=== PATIENT | male | born 1965 ===

== ENCOUNTER 2024-10-25 09:10 | Outpatient (REF) | payer MEDICAID, SELFPAY ==
--- OUTSIDE RECORDS SUMMARY | 2024-10-25 09:54 | XMS_ITS | Encounter Summary ---
Author Organization [employer] Address [address] [place] [address] Care Team Providers Care Press Tender Smoke Signal Name Role Phone Name, Mickey ANGUIANO Primary Care Provider [phone] Encounter Details Date Type Department Care Team (Latest Contact Info) Description 10/24/2024 Travel Social History Tobacco Use Types Packs/Day Years Used Date Smoking Tobacco: Never Smokeless Tobacco: Never Alcohol Use Standard Drinks/Week Comments Defer 0 (1 standard drink = 0.6 oz pur e alcohol) occionally Depression Answer Date Recorded Patient Health Questionnaire-9 Score 24 10/24/2024 Patient Health Questionnaire-9 Score 24 10/24/2024 Last PHQ-9: Questionnaire Data Not on file 0 10/24/2024 Housing Stability Answer Date Recorded What is your housing situation today? I am not s ure 10/24/[address] you li ve. Do you have problems with any of the following? None of the above 10/24/2024 Food Insecurity Answer Date Recorded Within the past 12 months, y ou worried that your food would run out before you got money to buy more: Sometimes True 2024 Within the past 12 months,th e food you bought just didn't last and you didn't have enough money to get more: Sometimes True 10/24/2024 Transportation Answer Date Recorded In the past 12 months, has l ack of transportation kept you from medical appts, meetings, work or from getting things needed for daily living? No 10/24/2024 Utilities Answer Date Recorded In the past 12 months, has t he electric, gas, oil or water company threatened to shut off services in your home? Already shut Off 10/24/2024 Depression Answer Date Recorded Patient Health Questionnaire-2 Score 6 10/24/2024 Internet Access Answer Date Recorded Internet Access Q1 No 10/24/2024 Internet Access Q2 I cannot afford it 10/24/2024 Sex and Gender Information Value Date Recorded Sex Assigned at Male 10/24/2024 8:17 AM EDT Legal Sex Male 10:59 AM EDT Gender Identity Male 10/24/2024 8:17 AM EDT Sexual Orientation Straight 10/24/2024 8: 17 AM EDT documented as of this encounter Plan of Treatment Upcoming Encounters Date Type Department Care Team (Late st Contact Info) Description 12/21/2024 11:30 AM EDT Office Visit [facility] [address] [place] [address] Name, MD Mickey [address] [place] [address] documented as of this encounter Visit Diagnoses Not on filedocumented in this encounter Additional Health Concerns Assessment Noted Time PHQ-9 Depression Total Score: 24 025 9:51 AM EDT documented as of this encounter Care Teams Press Tender Smoke Signal Relationship Specialty Start Date End Date Name, MD Mickey [address] [place] [id number] PCP - General Internal Medicine 10/24/24 documented as of this encounter
--- OUTSIDE RECORDS SUMMARY | 2024-10-25 09:54 | XMS_ITS | Clinical Summary ---
Author Organization [employer] [facility] Address [address] [facility] 7[address] [place] [address] Care Team Providers Care Type Mapper Name Role Phone NameMickey MD Primary Care Provider [phone] Allergies No known active allergies Active Problems Problem Noted Date Diagnosed Date Gynecomastia 10/24/2024 Overview (10/24/2024): Check testosterone levels, mammogram, referral to breast surgeon Encounters Date Type Department Care Team Description 10/24/2024 9:00 AM EDT Office Visit [facility] [address] [place] [address] Mickey Coyle MD Gynecomastia (Primary Dx); History of hepatitis C; Low libido; Blurred vision; Depression, unspecified depression type; Screening for cholesterol level; History of colonoscopy; Encounter for immunization; History of heroin abuse ([facility]) 10/24/2024 Travel 10/17/2024 Population Health Risk Score [facility] () Department [address] [facility] [address] [place] [id number] Provider, Population Health Generic 10/16/2024 Patient Outreach [facility] [address] [place] [address] Mickey Coyle MD Pre-visit Planning (SDOH unable to reach, Number disconnected) from Last 3 Months Immunizations Name Administration Dates Next Due Pneumococcal Conjugate PCV 20 10/24/2024 Tdap 10/24/2024 Social History Tobacco Use Types Packs/Day Years Used Date Smoking Tobacco: Never Smokeless Tobacco: Never Tobacco Cessation:Counseling Given: Not Answered Alcohol Use Standard Drinks/Week Comments Defer 0 [...] Orientation Straight 10/24/2024 8: 17 AM EDT Last Filed Vital Signs Vital Sign Reading Time Taken Comments Blood Pressure 123/78 10/24/2024 9:03 AM EDT Pulse 78 10/24/2024 9:03 AM EDT Temperature 36.4 ??C (97.5 ??F) 10/24/2024 9:03 AM ED T Respiratory Rate 18 10/24/2024 9:03 AM EDT Oxygen Saturation 98% 10/24/2024 9:03 AM EDT Inhaled Oxygen Concentration - - Weight 71.2 kg (157 lb) 10/24/2024 9:03 AM EDT Height 180.3 cm (5' 11 ) 10/24/2024 9:03 AM EDT Body Mass Index 21.9 10/24/2024 9:03 AM EDT Plan of Treatment Upcoming Encounters Date Type Department Care Team ([facility] st Contact Info) Description 12/21/2024 11:30 AM EDT Office Visit [facility] [address] [facility] [place] [address] Name, MD Mickey [address] [facility] [address] Health Maintenance Due Date Last Done Comments CT Colonography 1967 Colonoscopy 1967 Colorectal Cancer Screening 1967 FIT DNA/Cologuard 1967 FIT 1967 FOBT 1967 HIV Screening 1967 Lipid Panel 1967 Sigmoidoscopy 1967 Hepatitis A Vaccines (1 of 2 - Risk 2-dose series) 1986 Hepatitis B Vaccines (1 of 3 - 19+ 3-dose series) 1986 Zoster Vaccines (1 of 2) 2017 COVID-19 Vaccine ( - 2023-2 5 season) 2024 Influenza Vaccine (#1) 2024 Depression Monitoring 04/25/2025 10/24/2024 , 10/24/2024 Alcohol/Substance Use Screening 10/24/2025 10/24/2024 Depression Screening 10/24/2025 10/24/2024, 10/24/2024 SDOH Screening 10/24/2025 10/24/2024 Tobacco Screening 10/24/2025 10/24/2024 DTaP/Tdap/Td Vaccines (2 - T d or Tdap) 10/24/2034 10/24/2024 RSV Patients and Patients Aged 60 years or older (1 - 1-dose 75+ series) 2042 Pneumococcal Vaccine: 50+ Years Completed 10/24/2024 HIB Vaccines Aged Out No longer eligi ble based on patient's age to complete this topic HPV Vaccines Aged Out No longer eligi ble based on patient's age to complete this topic IPV Vaccines Aged Out No longer eligi ble based on patient's age to complete this topic Meningococcal Vaccine Aged Out No marie sarah eligible based on patient's age to complete this topic RSV under 20 months Aged Out No longe r eligible based on patient's age to complete this topic Rotavirus Vaccines Aged Out No longer eligible based on patient's age to complete this topic [facility] Care Teams Type Mapper Relationship Specialty Start Date End Date Name, MD Mickey [address] [place] [address] PCP - General Internal Medicine 10/24/24
--- OUTSIDE RECORDS SUMMARY | 2024-10-25 09:54 | XMS_ITS | Encounter Summary ---
Author Organization [employer] Address [address] [facility] 7t [place] [address] Care Team Providers Care Chisel Trimmer Name Role Phone Mickey Coyle MD Primary Care Provider [phone] Reason for Referral * Consultation (Routine) - Authorized Specialty Diagnoses / Procedures Referred By Kaleigh pittman Referred To Contact Diagnoses Gynecomastia Mickey Coyle MD [address] [place] [address] Phone: tel: fax: Amaury Porter MD [address] [place] [address] [address] [place] [address] Phone: tel: fax: Referral ID Status Reason Start Date Expiration Date Visits Requested Visits Authorized [id number] Authorized Specialty Services Required 10/24/2024 10/24/2025 12 12 * Imaging (Routine) - Authorized Specialty Diagnoses / Procedures Referred By Kaleigh pittman Referred To Contact Radiology Diagnoses Gynecomastia Procedures BI Mammogram Diagnostic Tomosynthesis Bilateral Mickey Coyle MD [address] [place] [address] Phone: tel: fax: [facility] [address] [place] [address] Phone: tel: fax: Referral ID Status Reason Start Date Expiration Date V isits Requested Visits Authorized [id number] Authorized 10/24/2024 10/24/2025 1 1 * Consultation (Routine) - Authorized Specialty Diagnoses / Procedures Referred By Kaleigh pittman Referred To Contact Behavioral Health Diagnoses Depression, unspecified depression type Mickey Coyle MD [address] [place] [address] Phone: tel: fax: Referral ID Status Reason Start Date Expiration Date Visits Requested Visits Authorized [id number] Authorized Specialty Services Required 10/24/2024 10/24/2025 1 1 * Consultation (Routine) - Authorized Specialty Diagnoses / Procedures Referred By Contac t Referred To Contact Optometry Diagnoses Blurred vision Mickey Coyle MD [address] [place] [address] Phone: tel: fax: [facility] OPTOMETRY [address] [place] [address] Phone: tel: fax: Referral ID Status Reason Start Date Expiration Date Visits Requested Visits Authorized [id number] Authorized Consult and Treat 10/24/2024 10/24/2025 1 1 Reason for Visit * Reason Comments initial visit Encounter Details Date Type Department Care Team (Late st Contact Info) Description 10/24/2024 9:00 AM EDT Office Visit [facility] [address] [place] [address] Mickey Coyle MD [address] [place] [phone] Gynecomastia (Primary Dx); History of hepatitis C; Low libido; Blurred vision; Depression, unspecified depression type; Screening for cholesterol level; History of colonoscopy; Encounter for immunization; History of heroin abuse (CMS/HCC) Social History Tobacco Use Types Packs/Day Years [...] AM EDT documented as of this encounter Last Filed Vital Signs Vital Sign Reading [...] Mass Index 21.9 10/24/2024 9:03 AM EDT documented in this encounter Progress Notes * Mickey Coyle, - 10/24/2024 9:00 AM EDT Subjective Patient ID: Odilon Wilde is a 59 y.o. male who presents for initial visit. Patient comes today for the first time to see me. The patient was recently released from retirement. He was incarcerated for about 25 years. The patient has a history of heroin use in the past. He has not used illicit drugs in about 10 years. He is not on Suboxone or methadone but was treated with methadone in the past. He has a personal history of depression. He admits to depression and anhedonia. He is not suicidal. He would like to have a counselor but would like to avoid using any antidepressants. He has a personal history of hepatitis C in the past. He tells me that he was told he was cured but he does not recall ever being treated for it. He has a personal history of gynecomastia. He tells me he was evaluated with mammograms in the past that were negative for malignancy about 2 years ago at [facility]. The patient complains of decreased libido. He tells me he he was told he had low testosterone in the past. The patient tells me he had a colonoscopy about 7 years ago in [place] that was normal. He agreed with Tdap and PCV 20 vaccinations today. The patient does not drink alcohol, does not smoke cigarettes and the last time he used heroin was more than 10 years ago. Review of Systems Constitutional: Negative for chills, fatigue and fever. HENT: Negative for sore throat. Respiratory: Negative for cough, chest tightness and shortness of breath. Cardiovascular: Negative for chest pain, palpitations and leg swelling. Gastrointestinal: Negative for abdominal pain and blood in stool. Genitourinary: Negative for testicular pain. Visit Vitals BP 123/78 (BP Location: Left arm, Patient Position: Sitting, BP Cuff Size: Adult) Pulse 78 Temp 97.5 ??F (36.4 ??C) (Temporal) Resp 18 Ht 5' 11 (1.803 m) Wt 157 lb (71.2 kg) SpO2 98% BMI 21.90 kg/m?? Smoking Status Never BSA 1.89 m?? Objective Physical Exam Constitutional: Appearance: Normal appearance. Cardiovascular: Rate and Rhythm: Normal rate and regular rhythm. Heart sounds: No murmur heard. Pulmonary: Effort: Pulmonary effort is normal. No respiratory distress. Breath sounds: No wheezing, rhonchi or rales. Chest: Comments: Bilateral gynecomastia larger on the left side. No axillary lymphadenopathy. He does not know of any family history of breast cancer. Abdominal: Palpations: Abdomen is soft. Tenderness: There is no abdominal tenderness. Musculoskeletal: Right lower leg: No edema. Left lower leg: No edema. Neurological: Mental Status: He is alert. Assessment/Plan Diagnoses and all orders for this visit: Gynecomastia Comments: Check testosterone levels, mammogram, referral to breast surgeon Orders: - CBC auto differential; Future - Comprehensive Metabolic Panel; Future - Hepatitis C Antibody with Reflex to HCV, RNA, Quantitative, Real-Time PCR; Future - Hepatitis B surface antigen, EIA; Future - Hepatitis B Surface Antibody, Qualitative; Future - Hepatitis A Antibody, Total; Future - HIV-1/2 Antigen and Antibodies, Fourth Generation, with Reflexes; Future - RPR (Monitor) with Reflex to Titer; Future - Chlamydia/N. Gonorrhoeae RNA, TMA, Urogenitial - Testosterone, Total, males (Adult), IA; Future - BI Mammogram Diagnostic Tomosynthesis Bilateral; Future - Referral to Breast Surgery; Future History of hepatitis C Comments: Check LFTs, viral hepatitis serologies, STI testing Orders: - CBC auto differential; Future - Comprehensive Metabolic Panel; Future - Hepatitis C Antibody with Reflex to HCV, RNA, Quantitative, Real-Time PCR; Future - Hepatitis B surface antigen, EIA; Future - Hepatitis B Surface Antibody, Qualitative; Future - Hepatitis A Antibody, Total; Future - HIV-1/2 Antigen and Antibodies, Fourth Generation, with Reflexes; Future - RPR (Monitor) with Reflex to Titer; Future - Chlamydia/N. Gonorrhoeae RNA, TMA, Urogenitial - Testosterone, Total, males (Adult), IA; Future Low libido Comments: Check testosterone levels Orders: - CBC auto differential; Future - Comprehensive Metabolic Panel; Future - Hepatitis C Antibody with Reflex to HCV, RNA, Quantitative, Real-Time PCR; Future - Hepatitis B surface antigen, EIA; Future - Hepatitis B Surface Antibody, Qualitative; Future - Hepatitis A Antibody, Total; Future - HIV-1/2 Antigen and Antibodies, Fourth Generation, with Reflexes; Future - RPR (Monitor) with Reflex to Titer; Future - Chlamydia/N. Gonorrhoeae RNA, TMA, Urogenitial - Testosterone, Total, males (Adult), IA; Future Blurred vision Comments: Referral to eye exam Orders: - Referral to [facility] Eye Care; Future Depression, unspecified depression type Comments: Referral to behavioral health Orders: - Referral to Behavioral Health; Future Screening for cholesterol level Comments: Check lipid profile Orders: - Lipid Panel, Standard; Future History of colonoscopy Comments: Patient had a colonoscopy in [place] around 2018 Encounter for immunization - PCV-20 VACCINE 6 wks + History of heroin abuse (CMS/HCC) Comments: Patient has not used heroin in more than 10 years. Orders: - CBC auto differential; Future - Comprehensive Metabolic Panel; Future - Hepatitis C Antibody with Reflex to HCV, RNA, Quantitative, Real-Time PCR; Future - Hepatitis B surface antigen, EIA; Future - Hepatitis B Surface Antibody, Qualitative; Future - Hepatitis A Antibody, Total; Future - HIV-1/2 Antigen and Antibodies, Fourth Generation, with Reflexes; Future - RPR (Monitor) with Reflex to Titer; Future - Chlamydia/N. Gonorrhoeae RNA, TMA, Urogenitial - Testosterone, Total, males (Adult), IA; Future Other orders - Tdap vaccine greater than or equal to 7 years old IM documented in this encounter Plan of Treatment Upcoming Encounters Date Type Department Care Team (Late st Contact Info) Description 12/21/2024 11:30 AM EDT Office Visit [facility]INE [address] [place] [address] Name, MD Mickey [address] [place] [phone] Scheduled Orders Name Type Priority Associated Diagnoses Orde r Schedule CBC auto differential Lab Routine Gynecomastia History of heroin abuse (CMS/HCC) History of hepatitis C Low libido Expected: 10/24/2024 (Approximate), Expires: 10/24/2025 Comprehensive Metabolic Panel Lab Routine Gynecomastia History of heroin abuse (CMS/HCC) History of hepatitis C Low libido Expected: 10/24/2024 (Approximate), Expires: 10/24/2025 Hepatitis C Antibody with Reflex to HCV, RNA, Quantitative, Real-Time PCR Lab Routine Gynecomastia History of heroin abuse (CMS/HCC) History of hepatitis C Low libido Expected: 10/24/2024, Expires: 10/24/2025 Hepatitis B surface antigen, EIA Lab Routine Gynecomastia History of heroin abuse (CMS/HCC) History of hepatitis C Low libido Expected: 10/24/2024 (Approximate), Expires: 10/24/2025 Hepatitis B Surface Antibody, Qualitative Lab Routine Gynecomastia History of heroin abuse (CMS/HCC) History of hepatitis C Low libido Expected: 10/24/2024 (Approximate), Expires: 10/24/2025 Hepatitis A Antibody, Total Lab Routine Gynecomastia History of heroin abuse (CMS/HCC) History of hepatitis C Low libido Expected: 10/24/2024 (Approximate), Expires: 10/24/2025 HIV-1/2 Antigen and Antibodies, Fourth Generation, with Reflexes Lab Routine Gynecomastia History of heroin abuse (CMS/HCC) History of hepatitis C Low libido Expected: 10/24/2024 (Approximate), Expires: 10/24/2025 RPR (Monitor) with Reflex to??Titer Lab Routine Gynecomastia History of heroin abuse (CMS/HCC) History of hepatitis C Low libido Expected: 10/24/2024, Expires: 10/24/2025 Chlamydia/N. Gonorrhoeae RNA, TMA, Urogenitial Microbiology Routine Gynecomastia History of heroin abuse (CMS/HCC) History of hepatitis C Low libido Ordered: 10/24/2024 Testosterone, Total, males (Adult), IA Lab Routine Gynecomastia History of heroin abuse (CMS/HCC) History of hepatitis C Low libido Expected: 10/24/2024, Expires: 10/24/2025 Lipid Panel, Standard Lab Routine Screening for cholesterol level Expected: 10/24/2024 (Approximate), Expires: 10/24/2025 BI Mammogram Diagnostic Tomosynthesis Bilateral Imaging Routine Gynecomastia Expected: 10/24/2024, Expires: 12/24/2025 Scheduled Referrals Name Type Priority Associated Diagnoses Orde r Schedule Referral to [facility] Eye Care Outpatient Referral Routine Blurred vision Expected: 10/24/2024 (Approximate), Expires: 10/24/2025 Referral to Behavioral Health Outpatient Referral Routine Depression, unspecified depression type Expected: 10/24/2024 (Approximate), Expires: 10/24/2025 Referral to Breast Surgery Outpatient Referral Routine Gynecomastia Expected: 10/24/2024 (Approximate), Expires: 10/24/2025 documented as of this encounter Visit Diagnoses Diagnosis Gynecomastia- Primary Hypertrophy of breast History of hepatitis C Personal history of other infectious and parasitic disease Low libido Blurred vision Other specified visual disturbances Depression, unspecified depression type Screening for cholesterol level History of colonoscopy Other postprocedural status Encounter for immunization History of heroin abuse (CMS/HCC) documented in this encounter Additional Health Concerns Assessment Noted Time PHQ-9 Depression Total Score: 24 025 9:51 AM EDT documented as of this encounter Care Teams Chisel Trimmer Relationship Specialty Start Date End Date Name, MD Mickey [address] [place] [address] PCP - General Internal Medicine 10/24/24 documented as of this encounter
== END 2024-10-25 09:11 | disposition home or self-care (01) ==
LOC: HO.HHCL 09:10
PROVIDERS: Visit Provider Internal Medicine Geriatric Medicine
DX: Z13.89 Encounter for screening for other disorder (principal)

== ENCOUNTER 2024-10-25 09:16 | Outpatient (REF) | payer MEDICAID, SELFPAY ==
[2024-10-25 11:43] LABS: MANUAL DIFF FLAG NO
[2024-10-25 12:03] LABS: Basophils Percent Auto 0.2 % (0-2); Eosinophils Percent Auto 0.2 % (0-4); Hematocrit 36.8 % (42.0-52.0); Hemoglobin 13.2 g/dl (14.0-18.0); Imm Gran Abs Auto 0.02 X10*3/uL (0.00-0.03); Imm Gran Pct Auto 0.5 % (0.0-0.4); Lymphocytes Absolute Auto 0.8 X10*3/uL (1.2-4.9); Lymphocytes Percent Auto 20.1 % (20-40); Mean Corpuscular HGB Conc 35.9 g/dl (31.0-36.0); Mean Corpuscular Hemoglobin 36.6 pg (27.0-33.0); Mean Corpuscular Volume 101.9 fL (80.0-98.0); Mean Platelet Volume 10.1 fL (9.4-12.4); Monocytes Absolute Auto 0.4 X10*3/uL (0.1-1.2); Monocytes Percent Auto 8.6 % (2-11); Neutrophils Absolute Auto 2.9 x10*3/uL (2.0-8.3); Neutrophils Percent Auto 70.4 % (45-73); Platelet Count 204 X10*3/uL (160-400); Red Blood Count 3.61 X10*6/uL (4.60-5.80); Red Cell Distribution Width 15.7 % (11.0-16.0); White Blood Count 4.2 X10*3/uL (4.8-10.8)
[2024-10-25 12:11] LABS: Alanine Aminotransferase 43 U/L (0-40); Albumin Level 3.3 g/dL (3.5-5.0); Alkaline Phosphatase 90 U/L (39-117); Anion Gap 15 (12-20); Aspartate Amino Transferase 129 U/L (5-37); Bilirubin Total 1.1 mg/dL (0.0-1.0); Blood Urea Nitrogen 10 mg/dL (9-16); Calcium 8.2 mg/dL (8.4-10.2); Carbon Dioxide 28 mmol/L (22-29); Chloride 103 mmol/L (96-108); Cholesterol 137 mg/dL (<200); Estimated Glomerular Filt Rate > 60; Glucose Random 98 mg/dL (60-115); HDL Cholesterol 65 mg/dL (>40); LDL Cholesterol Calculated 11 mg/dL (<100); Potassium 3.6 mmol/L (3.3-5.1); Sodium 142 mmol/L (135-145); Total Protein 6.9 g/dL (6.5-8.0); Triglycerides 305 mg/dL (<150)
[2024-10-25 12:28] LABS: HBS Num1 483.61 mIU/mL (0-7.99); HBsAGNum1 0.35 S/CO (0.00-0.99); HIV AB/AG Nonreactive (Nonreactive); HIV Num 1 0.08 S/CO (0.00-0.99); Hepatitis B Surface Antigen Negative (Negative); ~HepC Num1 14.18 S/CO (0.00-0.79); ~Hepatitis B Surface Antibody REACTIVE (Nonreactive); ~Hepatitis C Antibody Reactive (Nonreactive)
[2024-10-25 13:19] LABS: CT PCR NOT DETECTED (Not Detect.); NG PCR NOT DETECTED (Not Detect.)
[2024-10-26 10:07] LABS: RPR Rapid Plasma Reagin NON-REACTIVE (NON-REACTIVE)
[2024-10-29 12:53] LABS: Testosterone, Total 375 ng/dL (250-1100)
[2024-10-29 13:27] LABS: HCV Log PCR 5.22 Log IU/mL (NOT DETECTED); HepC Viral Load 167000 IU/mL (NOT DETECTED)
[2024-10-30 08:12] LABS: Hepatitis A Antibody IgG REACTIVE (Nonreactive)
== END 2024-10-25 09:17 | disposition home or self-care (01) ==
LOC: HO.HHCL 09:16
PROVIDERS: Visit Provider Internal Medicine Geriatric Medicine
DX: N62 Hypertrophy of breast (principal); F11.11 Opioid abuse, in remission; Z86.19 Personal history of other infectious and parasitic diseases; R68.82 Decreased libido; Z13.220 Encounter for screening for lipoid disorders
CPT/HCPCS: 36415; 80053; 80061; 84403; 85025; 86592; 86706; 86708; 86803; 87340; 87389; 87491; 87522; 87591

== ENCOUNTER 2024-10-31 09:03 | Outpatient (REF) | payer MEDICAID, SELFPAY ==
--- OUTSIDE RECORDS SUMMARY | 2024-10-31 09:42 | XMS_ITS | Encounter Summary ---
Author Organization [employer] Address [address] [facility] [address] [place] [id number] Care Team Providers Care Corporate Real Estate Manager Name Role Phone Mickey Coyle MD Primary Care Provider [phone] Reason for Referral * Consultation (Routine) - Authorized Specialty Diagnoses / Procedures Referred By Contjay t Referred To Contact Family Medicine Diagnoses Chronic hepatitis C without hepatic coma (CMS/HCC) Mickey Coyle MD [address] [place] [address] Phone: tel: fax: Referral ID Status Reason Start Date Expiration Date Visits Requested Visits Authorized [id number] Authorized Specialty Services Required 10/30/2024 10/30/2025 1 1 * Imaging (Routine) - Authorized Specialty Diagnoses / Procedures Referred By Contjay pittman Referred To Contact Radiology Diagnoses Chronic hepatitis C without hepatic coma (CMS/HCC) Procedures US Abdomen Comp w elastography Mickey Coyle MD [address] [place] [address] Phone: tel: fax: [address] Phone: tel: fax: Referral ID Status Reason Start Date Expiration Date V isits Requested Visits Authorized [id number] Authorized 10/30/2024 10/30/2025 1 1 Encounter Details Date Type Department Care Team (Late st Contact Info) Description 10/30/2024 Orders Only [facility] MEDICINE [address] [place] [phone] Mickey Coyle MD [address] [place] [address] Chronic hepatitis C without hepatic coma (CMS/HCC) (Primary Dx); Elevated MCV Social History Tobacco Use Types Packs/Day Years [...] Upcoming Encounters Date Type Department Care Team ([facility] st Contact Info) Description 12/21/2024 11:30 AM EDT Office Visit [facility] MEDICINE [address] [place] [address] Name, MD Mickey [address] [place] [address] Scheduled Orders Name Type Priority Associated Diagnoses Orde r Schedule Vitamin B12/Folate, Serum Panel Lab Routine Elevated MCV Expected: 10/30/2024, Expires: 10/30/2025 TSH W/Reflex to FT4 Lab Routine Elevated MCV Expected: 10/30/2024 (Approximate), Expires: 10/30/2025 US Abdomen Comp w elastography Imaging Routine Chronic hepatitis C without hepatic coma (CMS/HCC) Expected: 10/30/2024, Expires: 10/30/2025 Scheduled Referrals Name Type Priority Associated Diagnoses Order Schedule Referral to [facility] Infectious Disease (HIV & Hep C) Outpatient Referral Routine Chronic hepatitis C without hepatic coma (CMS/HCC) Expected: 10/30/2024 (Approximate), Expires: 10/30/2025 documented as of this encounter Visit Diagnoses Diagnosis Chronic hepatitis C without hepatic coma (CMS/HCC)- Primary Elevated MCV Other abnormality of red blood cells documented in this encounter Additional Health Concerns Assessment Noted Time PHQ-9 Depression Total Score: 24 025 9:51 AM EDT documented as of this encounter Care Teams Corporate Real Estate Manager Relationship Specialty Start Date End Date Name, MD Mickey [address] [place] [address] PCP - General Internal Medicine 10/24/24 documented as of this encounter
--- OUTSIDE RECORDS SUMMARY | 2024-10-31 09:42 | XMS_ITS | Clinical Summary ---
Author Organization [facility] Address [address] [address] 7[address] [place] [address] Care Team Providers Care Helicopter Specialist Name Role Phone NameMickey MD Primary Care Provider [phone] Allergies No known active allergies Active Problems Problem Noted Date Diagnosed Date Gynecomastia 10/24/2024 Overview (10/24/2024): Check testosterone levels, mammogram, referral to breast surgeon Encounters * This document contains information received from the source organization and may not represent a complete record from that organization. Date Type Department Care Team Description 10/30/2024 Orders Only [facility] MEDICINE [address] [place] [phone] NameMickey MD Chronic hepatitis C without hepatic coma (CMS/HCC) (Primary Dx); Elevated MCV 10/25/2024 Orders Only [address] [address] Mickey Coyle MD 10/24/2024 9:00 AM EDT Office Visit [address] [address] Mickey Coyle MD Gynecomastia (Primary Dx); History of hepatitis C; Low libido; Blurred vision; Depression, unspecified depression type; Screening for cholesterol level; History of colonoscopy; Encounter for immunization; History of heroin abuse (CMS/HCC) 10/24/2024 Travel 10/17/2024 Population Health Risk Score [facility] () Department [address] [phone] Provider, Population Health Generic 10/16/2024 Patient Outreach [facility] MED & PEDS [address] [place] [address] Mickey Coyle MD Pre-visit Planning (SDOH unable [...] Description 12/21/2024 11:30 AM EDT Office Visit [facility] MEDICINE [address] [place] [address] Name, MD Mickey [address] [place] [address] Health Maintenance Due Date Last Done Comments CT Colonography 1967 Colonoscopy 1967 Colorectal Cancer Screening 1967 FIT DNA/Cologuard 1967 FIT 1967 FOBT 1967 Sigmoidoscopy 1967 Hepatitis A Vaccines (1 [...] Screening 10/24/2025 10/24/2024 Tobacco Screening 10/24/2025 10/24/2024 Lipid Panel 10/25/2029 10/25/2024 DTaP/Tdap/Td Vaccines (2 - T d or Tdap) 10/24/2034 10/24/2024 RSV Patients and Patients Aged 60 years or older (1 - 1-dose 75+ series) 2042 Pneumococcal Vaccine: 50+ Years Completed 10/24/2024 HIV Screening Completed 10/25/2024 HIB Vaccines Aged Out No longer eligi [...] on patient's age to complete this topic Procedures Procedure Name Priority Date/Time Associated Diagnosis Comments HEPATITIS C VIRAL RNA, QUANTITATIVE, REAL-TIME PCR Routine 10/25/2024 9:18 AM EDT LIPID PANEL, STANDARD Routine 10/25/2024 9:18 AM EDT Screening for cholesterol level TESTOSTERONE, TOTAL, MALES (ADULT), IA Routine 10/25/2024 9:18 AM EDT Gynecomastia History of heroin abuse (CMS/HCC) History of hepatitis C Low libido RPR (MONITOR) W/REFL TITER Routine 10/25/2024 9:18 AM EDT Gynecomastia History of heroin abuse (CMS/HCC) History of hepatitis C Low libido HIV 1/2 ANTIGEN/ANTIBODY, FOURTH GENERATION W/RFL Routine 10/25/2024 9:18 AM EDT Gynecomastia History of heroin abuse (CMS/HCC) History of hepatitis C Low libido HEPATITIS A ANTIBODY, TOTAL Routine 10/25/2024 9:18 AM EDT Gynecomastia History of heroin abuse (CMS/HCC) History of hepatitis C Low libido HEPATITIS B SURFACE ANTIBODY, QUALITATIVE Routine 10/25/2024 9:18 AM EDT Gynecomastia History of heroin abuse (CMS/HCC) History of hepatitis C Low libido HEPATITIS B SURFACE ANTIGEN, EIA Routine 10/25/2024 9:18 AM EDT Gynecomastia History of heroin abuse (CMS/HCC) History of hepatitis C Low libido HEPATITIS C AB W/REFL TO HCV RNA, QN, PCR Routine 10/25/2024 9:18 AM EDT Gynecomastia History of heroin abuse (CMS/HCC) History of hepatitis C Low libido COMPREHENSIVE METABOLIC PANEL Routine 10/25/2024 9:18 AM EDT Gynecomastia History of heroin abuse (CMS/HCC) History of hepatitis C Low libido CBC WITH AUTO DIFFERENTIAL Routine 10/25/2024 9:18 AM EDT Gynecomastia History of heroin abuse (CMS/HCC) History of hepatitis C Low libido CHLAMYDIA/N. GONORRHOEAE RNA, TMA, UROGENITAL Routine 10/25/2024 9:18 AM EDT Gynecomastia History of heroin abuse (CMS/HCC) History of hepatitis C Low libido from Last 3 Months Results * (ABNORMAL) Hepatitis C Viral RNA, Quantitative, Real-Time PCR (10/25/2024 9:18 AM EDT) Hepatitis C Viral Load 523597(A) NOT DETECTED IU/mL [facility] HCV Log PCR 5.22(A) NOT DETECTED Log IU/mL [facility] Comment:For additional infor tisha, please refer tohttp://education.[employer].Sendio/faq/XSJ28b7(This link is being provided for informational/educational purposes only.)THIS TEST WAS PERFORMED AT:[employer] [place] [id number] FUNG MD 10/25/2024 9:18 AM EDT 10/26/2024 12:16 PM EDT us Mickey Coyle MD LAB BLOOD ORDERABLES Final Resul t [facility] [address] [place] [phone] * (ABNORMAL) CBC auto differential (10/25/2024 9:18 AM EDT) White Blood Count 4.2(L) 4.8 - 10.8 X10*3/uL [facility] Red Blood Count 3.61(L) 4.60 - 5.80 X10*6/uL [facility] Hemoglobin 13.2(L) 14.0 - 18.0 g/dl [facility] Hematocrit 36.8(L) 42.0 - 52.0 % [facility] Mean Corpuscular Volume 101.9(H) 80.0 - 98.0 fL [facility] Mean Corpuscular Hemoglobin 36.6(H) 27.0 - 33.0 pg [facility] Mean Corpuscular HGB Conc 35.9 31.0 - 36.0 g/dl [facility] Red Cell Distribution Width 15.7 11.0 - 16.0 % [facility] Platelet Count 204 160 - 400 X10*3/uL [facility] Mean Platelet Volume 10.1 9.4 - 12.4 fL [facility] Neutrophils Percent Auto 70.4 45 - 73 % [facility] Imm Gran Pct Auto 0.5(H) 0.0 - 0.4 % [facility] Lymphocytes Percent Auto 20.1 20 - 40 % [facility] Monocytes Percent Auto 8.6 2 - 11 % [facility] Eosinophils Percent Auto 0.2 0 - 4 % [facility] Basophils Percent Auto 0.2 0 - 2 % [facility] NRBC Pct Auto 0.0 0.0 - 0.2 /100WBC [facility] Neutrophils Absolute Auto 2.9 2.0 - 8.3 x10*3/uL [facility] Imm Gran Abs Auto 0.02 0.00 - 0.03 X10*3/uL [facility] Lymphocytes Absolute Auto 0.8(L) 1.2 - 4.9 X10*3/uL [facility] Monocytes Absolute Auto 0.4 0.1 - 1.2 X10*3/uL [facility] Eosinophils Absolute Auto 0.0 0.0 - 0.4 X10*3/uL [facility] Basophils Absolute Auto 0.0 0.0 - 0.2 X10*3/uL [facility] NRBC Abs Auto 0.000 0.0 - 0.012 X10*3/uL [facility] Blood Venous blood specimen / Unknown 10/25/2024 9:18 AM EDT 10/25/2024 11:37 AM EDT us Mickey Coyle MD LAB BLOOD ORDERABLES Final Resul t Performing Organization Address [facility] de Phone Number [facility] [address] [place] [phone] * (ABNORMAL) Hepatitis C Antibody with Reflex to HCV, RNA, Quantitative, Real- Time PCR (10/25/2024 9:18 AM EDT) Hepatitis C Antibody Reactive( A) Nonreactive [facility] Comment:Presumptive evidence of antibodies to HCV. Blood Venous blood specimen / Unknown 10/25/2024 9:18 AM EDT 10/25/2024 11:37 AM EDT us Mickey Coyle MD LAB BLOOD ORDERABLES Final Resul t Performing Organization Address [facility] de Phone Number [facility] [address] [place] [phone] * Hepatitis A Antibody, Total (10/25/2024 9:18 AM EDT) Hepatitis A Antibody IgG REACTIVE Nonreactive [facility] Comment:The presence of IgG anti-HAV implies past HAV infection(recent or distant) or vaccination against HAV. Blood Venous blood specimen / Unknown 10/25/2024 9:18 AM EDT 10/25/2024 11:37 AM EDT us Mickey Coyle MD LAB BLOOD ORDERABLES Final Resul t Performing Organization Address [facility]/ZIP Co de Phone Number [facility] [address] [place] [phone] * Chlamydia/N. Gonorrhoeae RNA, TMA, Urogenitial (10/25/2024 9:18 AM EDT) CT PCR NOT DETECTED Not Detect. [facility] Comment:A not detected test result does not exclude the possibilityof infection because test results can be affected byimproper specimen collection, concurrent antibiotic therapy,or the number of organisms in the specimen which may bebelow the sensitivity of the test. As with many diagnostictests, results from the Xpert CT/NG assay should beinterpreted in conjunction with other laboratory andclinical data available to the clinician.Xpert CT/NG performance has not been evaluated in patientsless than 14 years of age. The assay should not be used forthe evaluationof suspected sexual abuse or for other medico-legalindications. Additional testing is recommended in anycircumstance when false positive or false negative resultscould lead to adverse medical, social or psychologicalconsequences. NG PCR NOT DETECTED Not Detect. [facility] Comment:A not detected test result does not exclude the possibilityof infection because test results can be affected byimproper specimen collection, concurrent antibiotic therapy,or the number of organisms in the specimen which may bebelow the sensitivity of the test. As with many diagnostictests, results from the Xpert CT/NG assay should beinterpreted in conjunction with other laboratory andclinical data available to the clinician.Xpert CT/NG performance has not been evaluated in patientsless than 14 years of age. The assay should not be used forthe evaluationof suspected sexual abuse or for other medico-legalindications. Additional testing is recommended in anycircumstance when false positive or false negative resultscould lead to adverse medical, social or psychologicalconsequences. Urine (Urine, Random) 10/25/2024 9:18 AM EDT 10/25/2024 11:43 AM EDT Narrative [facility] - 10/25/2024 1:19 PM EDT Urine Mickey Coyle MD LAB MICROBIOLOGY - GENERAL ORDER SUSAN Final Result Performing Organization Address [facility] de Phone Number [facility] [address] [place] [phone] * Hepatitis B surface antigen, EIA (10/25/2024 9:18 AM EDT) Hepatitis B Surface Ag Negative Negative [facility] Blood Venous blood specimen / Unknown 10/25/2024 9:18 AM EDT 10/25/2024 11:37 AM EDT us Mickey Coyle MD LAB BLOOD ORDERABLES Final Resul t Performing Organization Address [facility] Phone Number [facility] [address] [place] [phone] * RPR (Monitor) with Reflex to??Titer (10/25/2024 9:18 AM EDT) RPR (Monitor) w/Refl Titer NON-REACTI VE NON-REACT YANELI [facility] Comment:THIS TEST WAS PERFOR MED AT:[employer] [address] [id number] FUNG MD Rapid Plasma Reagin Ab Titer TNP [facility] Blood Venous blood specimen / Unknown 10/25/2024 9:18 AM EDT 10/25/2024 11:37 AM EDT us Mickey Coyle MD LAB BLOOD ORDERABLES Final Resul t Performing Organization Address [facility] Co de Phone Number [facility] [address] [place] [phone] * HIV-1/2 Antigen and Antibodies, Fourth Generation, with Reflexes (10/25/2024 9:18 AM EDT) HIV AB/AG Nonreactive Nonreactive [facility] Comment:HIV-1 p24 Ag and/or HIV-1/HIV-2 Ab not detected.A test result that is nonreactive does not exclude thepossibility of exposure to or infection with HIV-1 and/orHIV-2. Nonreactive results in this assay for individualswith prior exposure to HIV-1 and/or HIV-2 may be due toantigen and antibody levels that are below the limit ofdetection of this assay.[employer] HIV Ag/Ab Combo assay result andsupplemental assay results should be interpreted inconjunction with the patient's clinical presentation,history and other laboratory results. If the results areinconsistent with clinical evidence, additional testing issuggested to confirm the result. Blood Venous blood specimen / Unknown 10/25/2024 9:18 AM EDT 10/25/2024 11:37 AM EDT us Mickey Coyle MD LAB BLOOD ORDERABLES Final Resul t Performing Organization Address [facility] Co de Phone Number [facility] [address] [place] [phone] * Hepatitis B Surface Antibody, Qualitative (10/25/2024 9:18 AM EDT) ~Hepatitis B Surface Antibody REACTIVE Nonreactive [facility] Comment:REACTIVE: > 11.99 mI U/mL Blood Venous blood specimen / Unknown 10/25/2024 9:18 AM EDT 10/25/2024 11:37 AM EDT us Mickey Coyle MD LAB BLOOD ORDERABLES Final Resul t Performing Organization Address [facility] Co de Phone Number [facility] [address] [place] [phone] * Testosterone, Total, males (Adult), IA (10/25/2024 9:18 AM EDT) Testosterone, Total 375 250 - 1100 ng/dL [facility] Comment:For additional infor tisha, please refer tohttp://education.[employer].Sendio/faq/LoyixBsmfhoqdrdxjJPMNTTGWD472(This link is being provided for informational/educational purposes only.)This test was developed and its analytical performancecharacteristics have been determined by [employer] [place], [place]. It hasnot been cleared or approved by the U.S. Food and DrugAdministration. This assay has been validated pursuantto the CLIA regulations and is used for clinicalpurposes.THIS TEST WAS PERFORMED AT:[employer] [place] [id number] DESAI MD,PHD Blood Venous blood specimen / Unknown 10/25/2024 9:18 AM EDT 10/25/2024 11:37 AM EDT us Mickey Coyle MD LAB BLOOD ORDERABLES Final Resul t [facility] [address] [place] [phone] * (ABNORMAL) Lipid Panel, Standard (10/25/2024 9:18 AM EDT) Triglycerides 305(H) <150 mg/dL [facility] Comment:Desirable Triglyceri de: less than 150 mg/dLBorderline High Triglyceride 150-199 mg/dLHigh Triglyceride: 200-499 mg/dLVery High Triglyceride: greater than or equal to 5OO mg/dL Cholesterol 137 <200 mg/dL [facility] Comment:Desirable Cholestero l: less than 200 mg/dLBorderline High Cholesterol: 200-239 mg/dLHigh Cholesterol: greater than 239 mg/dL LDL Cholesterol Calculated 11 <100 mg/dL [facility] Comment:Desirable LDL: less than 100 mg/dLNear Optimal/Above Optimal LDL: 110- 129 mg/dLBorderline High LDL: 130-159 mg/dLHigh LDL: 160-189 mg/dLVery High LDL: greater than or equal to 190 mg/dL HDL Cholesterol 65 >40 mg/dL [facility] Comment:Desirable HDL: great er than 40 mg/dL Note: This HDL assay may give artificially low results in patients with liver disease. Blood Venous blood specimen / Unknown 10/25/2024 9:18 AM EDT 10/25/2024 11:37 AM EDT us Mickey Coyle MD LAB BLOOD ORDERABLES Final Resul t [facility] [address] [place] [phone] * (ABNORMAL) Comprehensive Metabolic Panel (10/25/2024 9:18 AM EDT) Sodium 142 135 - 145 mmol/L [facility] Potassium 3.6 3.3 - 5.1 mmol/L [facility] Chloride 103 96 - 108 mmol/L [facility] Carbon Dioxide 28 22 - 29 mmol/L [facility] Anion Gap 15 12 - 20 [facility] Urea Nitrogen (BUN) 10 9 - 16 mg/dL [facility] Creatinine, Serum 0.77 0.5 - 1.4 mg/dL [facility] Estimated Glomerular Filt Rate >60 [facility] Comment:Chronic Kidney Disea se: Estimated GFR < 60 mL/min/1.02o2Ydofpb Kidney Disease: Estimated GFR < 15 mL/min/1.73m2 Glucose 98 60 - 115 mg/dL [facility] Calcium 8.2(L) 8.4 - 10.2 mg/dL [facility] Bilirubin, Total 1.1(H) 0.0 - 1.0 mg/dL [facility] Aspartate Amino Transferase 129(H) 5 - 37 U/L [facility] Alanine Aminotransferase 43(H) 0 - 40 U/L [facility] Total Protein 6.9 6.5 - 8.0 g/dL [facility] Albumin Level 3.3(L) 3.5 - 5.0 g/dL [facility] Alkaline Phosphatase 90 39 - 117 U/L [facility] Blood Venous blood specimen / Unknown 10/25/2024 9:18 AM EDT 10/25/2024 11:37 AM EDT us Mickey Coyle MD LAB BLOOD ORDERABLES Final Resul t [facility] [address] [place] [phone] from Last 3 Months Insurance [employer] C3 Care Teams Helicopter Specialist Relationship Specialty Start Date End Date Name, MD Mickey [address] [place] [address] PCP - General Internal Medicine 10/24/24
--- OUTSIDE RECORDS SUMMARY | 2024-10-31 09:42 | XMS_ITS | Encounter Summary ---
Author Organization [employer] Address [address] [place] [address] Care Team Providers Care Rough And Truing Machine Operator Name Role Phone Name, Mickey ANGUIANO Primary Care Provider [phone] Encounter Details Date Type Department Care Team (Late st Contact Info) Description 10/25/2024 Orders Only [facility] [address] [place] [address] Name, MD Mickey [address] [place] [address] Social History Tobacco Use Types Packs/Day Years [...] Description 12/21/2024 11:30 AM EDT Office Visit [facility] [address] [place] [phone] Name, MD Mickey [address] [place] [address] documented as of this encounter Procedures Procedure Name Priority Date/Time Associated Diagnosis Comments HEPATITIS C VIRAL RNA, QUANTITATIVE, REAL-TIME PCR Routine 10/25/2024 9:18 AM EDT documented in this encounter Results * (ABNORMAL) Hepatitis C Viral RNA, Quantitative, Real-Time PCR (10/25/2024 9:18 AM EDT) Hepatitis C Viral Load 167160(A) NOT DETECTED IU/mL [facility] HCV Log PCR 5.22(A) NOT DETECTED Log IU/mL [facility] Comment:For additional infor tisha, please refer tohttp://education.English Helper/faq/SRC31l8(This link is being provided for informational/educational purposes only.)THIS TEST WAS PERFORMED AT:[employer] [place] [id number] FUNG MD 10/25/2024 9:18 AM EDT 10/26/2024 12:16 PM EDT us Mickey Coyle MD LAB BLOOD ORDERABLES Final Resul t [facility] [address] [place] [phone] documented in this encounter Visit Diagnoses Not on filedocumented in this encounter Additional Health Concerns Assessment Noted Time PHQ-9 Depression Total Score: 24 025 9:51 AM EDT documented as of this encounter Care Teams Rough And Truing Machine Operator Relationship Specialty Start Date End Date Name, MD Mickey [address] [place] [address] PCP - General Internal Medicine 10/24/24 documented as of this encounter
[2024-10-31 11:59] LABS: TSH reflex Free T4 0.14 uIU/mL (0.32-4.0)
[2024-10-31 12:18] LABS: Folate < 2.2 ng/mL (> or = 4.0); Vitamin B12 373 pg/mL (200-900)
== END 2024-10-31 09:04 | disposition home or self-care (01) ==
LOC: HO.HHCL 09:03
PROVIDERS: Visit Provider Internal Medicine Geriatric Medicine
DX: R71.8 Other abnormality of red blood cells (principal)
CPT/HCPCS: 36415; 82607; 82746; 84439; 84443

== ENCOUNTER 2024-11-01 13:18 | Outpatient (AMB) | payer MEDICAID, SELFPAY ==
--- NOTE | 2024-11-01 13:28 | A.OFFVIS_ITS ---
Vital Signs 3 11/01/24 13:43 Height 5 ft 11 in Weight 154 lb 2 oz BMI 21.5 BP 119/76 Blood Pressure Location Lt brachial Position Sitting Pulse 82 Intake Visit Reasons: Gynecomastia Intake Note: Patient is seen in office for evaluation and treatment of gynecomastia. Pt c/o:onset many yrs, left breast is bigger, thinks might be due to some meds he was taking in the past, painful, increase in size, states had imaging done in [facility] about a year ago Auger Mill Operator Required: No Accompanied by: Self / Same As Patient Allergies No Known Allergies Allergy (Unverified 11/01/24 13:42) Medication List - Last Reconciled 11/01/24 by Amaury Porter MD No Known Home Meds HPI Comments Details: 59-year-old male patient presenting for evaluation of left breast enlargement. He reports being on medication for a prolonged period of time for his stomach which he feels resulted in the left breast enlargement. He has some discomfort associated with this enlargement as well and denies any symptoms in the right breast. He denies any redness or discharge from the skin. He apparently underwent mammogram evaluation at [facility] approximately 2 years ago however the results are not available at the time of this visit. He was requesting excision of this left breast mass. [facility] Medical History (Updated 11/01/24 @ 14:21 by Amaury Porter MD) Heroin abuse Depression Hepatitis C Gynecomastia Review of Systems Const All systems reviewed & are unremarkable except as noted in HPI and below Physical Exam Vital Signs: Last Vital Signs Pulse 82 11/01/24 13:43 BP 119/76 11/01/24 13:43 BMI result Body Mass Index 21.5 Const General: cooperative and no acute distress Nutritional Appearance: well nourished Orientation/consciousness: patient oriented x3 Limitations: no limitations HEENT Head: Yes normocephalic and Yes atraumatic Ears: hearing grossly normal bilaterally Chest Other: Right breast: No skin change, nipple discharge, nipple retraction, palpable mass, or enlarged lymph nodes. Left breast: Softly enlarged diffusely with no hard density suggestive of gynecomastia. No nipple discharge, nipple retraction, or enlarged lymph nodes appreciated. Findings may be suggestive of a large lipoma of the chest or soft breast mass. Chest/axillae images: 2 1. Markedly enlarged left breast compared to the right breast Resp Effort & Inspection: normal respiratory effort, no audible wheezes, no cough and no respiratory distress Cardio Jugular venous distension: no JVD GI Inspection: Yes normal to inspection Skin Other: Warm, dry, no rash Neuro General: patient oriented x3 Extrem General: Yes no clubbing, cyanosis or edema Assessment & Plan Assessment & Plan (1) Left breast mass: Code(s): N63.20 - Unspecified lump in the left breast, unspecified quadrant Category: Medical Qualifiers: Breast mass location: overlapping quadrants Qualified Code(s): N63.25 - Unspecified lump in the left breast, overlapping quadrants Plan 59-year-old male patient with 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 On examination there is a dramatic increase in the left side compared to the right side. We are unable to access previous x-rays from [facility] therefore I recommended repeating the mammogram and ultrasound of the left breast to better evaluate the breast enlargement. I discussed excision of this large mass of the left breast in detail with the patient including the risks, alternatives and benefits. He consents to the left breast lumpectomy. Orders: Orders 2 US breast LT complete Today N63.20 - Unspecified lump in the left breast, unspecified quadrant MM diagnostic mammo unilat LT Today N63.20 - Unspecified lump in the left breast, unspecified quadrant Coding Level of Care Code New Pt Level 4 (48333) Diagnoses Mass overlapping multiple quadrants of left breast N63.25 Breast mass location: overlapping quadrants
[2024-11-01 13:43] VITALS: BP 119/76; PULSE 82; BMI 21.5
== END 2024-11-01 13:50 | disposition home or self-care (01) ==
LOC: HO.HGS 13:19
PROVIDERS: PCP Internal Medicine Geriatric Medicine; Visit Provider Surgery
DX: N63.25 Unspecified lump in the left breast, overlapping quadrants (principal)
CPT/HCPCS: 99204

== ENCOUNTER → 2024-11-01 13:18 | Outpatient (BNVA) | payer MEDICAID, SELFPAY | PROVIDERS: PCP Internal Medicine Geriatric Medicine; Visit Provider Surgery | DX: N63.25 Unspecified lump in the left breast, overlapping quadrants (principal); N62 Hypertrophy of breast | CPT/HCPCS: 99202 ==

== ENCOUNTER 2024-11-21 09:04 | Outpatient (REF) | payer MEDICAID, SELFPAY ==
[2024-11-21 11:23] LABS: INTERNATIONAL NORM RATIO 1.1 (0.9-1.1); Prothrombin Time 13.1 SEC (10.9-12.4)
[2024-11-21 12:00] LABS: Alanine Aminotransferase 31 U/L (0-40); Albumin Level 3.4 g/dL (3.5-5.0); Alkaline Phosphatase 97 U/L (39-117); Aspartate Amino Transferase 115 U/L (5-37); Bilirubin Total 2.2 mg/dL (0.0-1.0); Total Protein 7.2 g/dL (6.5-8.0)
[2024-11-28 13:53] LABS: Hepatitis C Genotype 1b
[2024-11-28 14:09] LABS: FIB-ALT 25 U/L (9-46); FIB-Alpha-2-Macroglobulin 221 mg/dL (106-279); FIB-Apolipoprotein A1 170 mg/dL (94-176); FIB-GGT 719 U/L (3-85); FIB-Haptoglobin <8 mg/dL (43-212); FIB-Total Bilirubin 1.7 mg/dL (0.2-1.2); Liver Fibrosis Score 0.94; Liver Fibrosis Stage F4; Nec Inflam Act Grade A0-A1; Nec Inflam Act Score 0.25; Reference ID 5484311
== END 2024-11-21 09:05 | disposition home or self-care (01) ==
LOC: HO.HHCL 09:04
PROVIDERS: Visit Provider Family Medicine
DX: Z86.19 Personal history of other infectious and parasitic diseases (principal)
CPT/HCPCS: 36415; 80076; 81596; 85610; 87902

== ENCOUNTER 2024-12-11 08:51 | Outpatient (REF) | payer MEDICAID, SELFPAY ==
--- NOTE | ~2024-12-11 | US_ITS ---
EXAMINATION: MM DIAGNOSTIC DIGITAL BREAST TOMOSYNTHESIS, BILATERAL Left Limited ultrasound. CLINICAL INFORMATION: History of left gynecomastia now with left breast enlargement and pain. The patient is under the care of a breast surgeon Dr. Ybarra and is planning to undergo a excision left breast tissue December 2024. COMPARISON: Mammography: Comparison is made with relevant prior exams. TECHNIQUE: Digital breast mammography with tomosynthesis is performed in both the craniocaudal and mediolateral oblique views along with computer-aided detection (CAD). FINDINGS: There is minimal right retroareolar gynecomastia and moderate nodular left gynecomastia. BB marker retroareolar region of the left breast anterior depth with underlying nodular gynecomastia. No suspicious masses calcifications or other abnormal findings. Targeted color Doppler ultrasound of the left retroareolar region area of patient's symptoms pain and swelling demonstrates moderate nodular retroareolar gynecomastia. No other sonographic abnormality is seen. Results are provided to the patient at time of visit by the technologist. US/US breast LT limited mamm only IMPRESSION: Minimal right gynecomastia and moderate left nodular gynecomastia. Benign. ASSESSMENT: BI-RADS BI-RADS 2 - Benign Findings RECOMMENDATION: Recommend clinical evaluation, consultation and follow-up. Electronically signed by: Nanette Silverman DO 12/11/2024 09:47 AM EDT
--- OUTSIDE RECORDS SUMMARY | 2024-12-11 09:13 | XMS_ITS | Clinical Summary ---
Author Organization [employer] Address [address] [facility] 7t [place] [address] Care Team Providers Care Insecticide Expert Name Role Phone Name, Mickey ANGUIANO Primary Care Provider [phone] Allergies No known active allergies Medications * [...] Type Department Care Team Description 11/22/2024 Telephone [facility] [address] [place] [address] Corrie Alcantar MA 11/22/2024 Telephone [facility] [address] [place] [address] Amelia Jones MD 11/22/2024 Telephone [facility]INE [address] [place] [address] Brianna Bui, ISAC 11/22/2024 Orders Only [facility] [address] [place] [address] Brianna Bui, RN History of hepatitis C (Primary Dx) 11/21/2024 11:00 AM EDT Telemedicine [facility] MEDICINE [address] [place] [address] Brianna Bui, RN History of hepatitis C 11/21/2024 Telephone [facility] [address] [facility] [place] [address] Brianna Bui, ISAC 11/21/2024 Travel 11/21/2024 Orders Only [facility] [place] [address] Amelia Jones MD 11/13/[address] [address] Brianna Bui, ISAC 11/08/[address] [address] Brianna Bui RN 10/31/[address] [address] Mickey Coyle MD Results 10/31/2024 Orders Only [address] [address] Mickey Coyle MD Folic acid deficiency (Primary Dx) 10/31/2024 Orders Only [address] [address] Mickey Coyle MD 10/30/2024 Orders Only [address] [address] NameMickey MD Chronic hepatitis C without hepatic coma (CMS/HCC) (Primary Dx); Elevated MCV 10/25/2024 Orders Only [address] [address] Mickey Coyle MD 10/24/2024 9:00 AM EDT Office Visit [address] [address] Mickey Coyle MD Gynecomastia (Primary Dx); History of hepatitis C; Low libido; Blurred vision; Depression, unspecified depression type; Screening for cholesterol level; History of colonoscopy; Encounter for immunization; History of heroin abuse (CMS/HCC) 10/24/2024 Travel 10/17/2024 Population Health Risk Score [facility] () Department [address] [place] [phone] Provider, Population Health Generic 10/16/2024 Patient Outreach [facility] [address] [place] [address] Name, MD Mickey Pre-visit Planning (SDOH unable [...] t he electric, gas, oil or water [employer] threatened to shut off services in your [...] Description 12/21/2024 11:30 AM EDT Office Visit [facility] MEDICINE [address] [place] [address] Name, MD Mickey [address] [place] [address] 02/26/2025 9:00 AM EDT Office Visit [facility] OPTOMETRY [address] [place] [address] Korin Dumont, OD [address] [place] [address] Health Maintenance Due Date Last Done Comments [...] 9:06 AM EDT) Liver Fibrosis Score 0.94 [facility] Liver Fibrosis Stage F4 [facility] Liver Fibrosis Interpretation SEE NOTE [facility] Comment:severe fibrosisFibro Test Score (f) Metavir Score f>=0 and f<=0.21 : F0 (no fibrosis)f>0.21 and f<=0.27 : F0-F1 (no fibrosis)f>0.27 and f<=0.31 : F1 (minimal fibrosis)f>0.31 and f<=0.48 : F1-F2 (minimal fibrosis)f>0.48 and f<=0.58 : F2 (moderate fibrosis)f>0.58 and f<=0.72 : F3 (advanced fibrosis)f>0.72 and f<=0.74 : F3-F4 (advanced fibrosis)f>0.74 and f<=1.00 : F4 (severe fibrosis) Nec Inflam Act Score 0.25 [facility] Nec Inflam Act Grade A0-A1 [facility] Nec Inflam Act Interpretation SEE NOTE [facility] Comment:no activityActiTest Score (a) Metavir Score a>=0 and a<=0.17 : A0 (no activity)a>0.17 and a<=0.29 : A0-A1 (no activity)a>0.29 and a<=0.36 : A1 (minimal activity)a>0.36 and a<=0.52 : A1-A2 (minimal activity)a>0.52 and a<=0.60 : A2 (significant activity)a>0.60 and a<=0.62 : A2-A3 (significant activity)a>0.62 and a<=1.00 : A3 (severe activity) XAH-[id number]-[id number]-Macroglo bulin 221 106 - 279 mg/dL [facility] FIB-Haptoglobin <8(A) 43 - 212 mg/dL [facility] FIB-Apolipoprotein A1 170 94 - 176 mg/dL [facility] FIB-Total Bilirubin 1.7(A) 0.2 - 1.2 mg/dL [facility] FIB-GGT 719(A) 3 - 85 U/L [facility] FIB-ALT 25 9 - 46 U/L [facility] Reference ID [id number] [facility] Footnote SEE NOTE [facility] Comment: The reliability of results is [...] and C.The performance characteristics have been determined by[facility] [facility]. Ithas not been cleared or approved by the U.S. Food and DrugAdministration. Performance characteristics refer to theanalytical performance of the test.Umeng, the associated logo, [employer] and all associated [employer] are theregistered trademarks of [employer]. All third partymarks - (R) and (TM) - are the property of their respectiveowners. (C) [id number] [employer]. Allrights reserved.THIS TEST WAS PERFORMED AT:[employer] [id number] JULES VILLALOBOS ??[id number] ALVARADO MD,PHD,JEANNE 11/21/2024 9:06 AM EDT 11/21/2024 11:07 AM EDT Amelia Jones MD LAB BLOOD ORDERABLES Final R esult Performing Organization Address [facility] Co de Phone Number [facility] [address] [place] [phone] * Hepatitis C Viral RNA, Genotype, LiPA (11/21/2024 9:06 AM EDT) Hepatitis C Genotype 1b [facility] Comment:The method used in t his test is RT-PCR and reversehybridization (Line Probe) of the 5' UTR and coreregion of the HCV genome.The analytical performance characteristics of thisassay have been determined by [facility] [place], [place], [place]. The modificationshave not been cleared or approved by the FDA. Thisassay has been validated pursuant to the CLIAregulations and is used for clinical purposes.For additional information, please refer tohttp://education.[employer]/faq/HCVGenotyping(This link is being provided for informational/educational purposes only.)THIS TEST WAS PERFORMED AT:[employer]/[id number] [place] [address]KKPKAPNBETZAIDA DESAI MD,PHD 11/21/2024 9:06 AM EDT 11/21/2024 10:57 AM EDT Amelia Jones MD LAB BLOOD ORDERABLES Final R esult Performing Organization Address [facility]/ZIP Co de Phone Number [facility] [address] [place] [phone] * (ABNORMAL) Prothrombin Time-INR (11/21/2024 9:06 AM EDT) Prothrombin Time 13.1(H) 10.9 - 12.4 SEC [facility] INTERNATIONAL NORM RATIO 1.1 0.9 - 1.1 [facility] Comment:INTERNATIONAL NORMAL IZED RATIO (INR) REFERENCE [...] MD LAB BLOOD ORDERABLES Final R esult [facility] [address] [place] [phone] * (ABNORMAL) Hepatic Function Panel (11/21/2024 9:06 AM EDT) Bilirubin, Total 2.2(H) 0.0 - 1.0 mg/dL [facility] Comment:Slight Icterus. Bilirubin, Direct 1.0(H) 0.0 - 0.5 mg/dL [facility] Comment:Slight Icterus. Aspartate Amino Transferase 115(H) 5 - 37 U/L [facility] Alanine Aminotransferase 31 0 - 40 U/L [facility] Total Protein 7.2 6.5 - 8.0 g/dL [facility] Albumin Level 3.4(L) 3.5 - 5.0 g/dL [facility] Alkaline Phosphatase 97 39 - 117 U/L [facility] 11/21/2024 9:06 AM EDT 11/21/2024 11:07 AM EDT us Amelia Jones MD LAB BLOOD ORDERABLES Final R esult Performing Organization Address City/[facility]/ZIP Co de Phone Number [facility] [address] [place] [phone] * (ABNORMAL) Vitamin B12/Folate, Serum Panel (10/31/2024 9:04 AM EDT) Vitamin B12 373 200 - 900 pg/mL [facility] Comment:NORMAL 200-900 PG/ML INDETERMINATE 160-199 PG/ML DEFICIENT < 160 PG/ML Folate <2.2(L) > or = 4.0 ng/mL [facility] Comment:Reference Values:> o r = 4.0 [...] ORDERABLES Final Resul t Performing Organization Address [facility] Co de Phone Number [facility] [address] [place] [phone] * (ABNORMAL) TSH W/Reflex to FT4 (10/31/2024 9:04 AM EDT) TSH reflex Free T4 0.14(L) 0.32 - 4.0 uIU/mL [facility] Blood Venous blood specimen / Unknown 10/31/2024 9:04 AM EDT 10/31/2024 11:10 AM EDT us Mickey Coyle MD LAB BLOOD ORDERABLES Final Resul t Performing Organization Address City/[facility]/ZIP Co de Phone Number [facility] [address] [place] [phone] * T4, Free (10/31/2024 9:04 AM EDT) [facility] Free T4 (Free Thyroxine) 1.10 0.71 - 1.85 ng/dL [facility] 10/31/2024 9:04 AM EDT 10/31/2024 11:10 AM EDT Mickey Coyle MD LAB BLOOD ORDERABLES Final Resul t Performing Organization Address [facility] Co de Phone Number [facility] [address] [place] [phone] * (ABNORMAL) Hepatitis C Viral RNA, Quantitative, Real-Time PCR (10/25/2024 9:18 AM EDT) [facility] Hepatitis C Viral Load 044002(A) NOT DETECTED IU/mL [facility] HCV Log PCR 5.22(A) NOT DETECTED Log IU/mL [facility] Comment:For additional infor mation, please refer tohttp://education.[employer]/faq/KWU99y5(This link is being provided for informational/educational purposes only.)THIS TEST WAS PERFORMED AT:[employer] [place] [id number] FUNG MD 10/25/2024 9:18 AM EDT 10/26/2024 12:16 PM EDT us Mickey Coyle MD LAB BLOOD ORDERABLES Final Resul t Performing Organization Address [facility]/ZIP Co de Phone Number [facility] [address] [place] [phone] * (ABNORMAL) CBC auto differential (10/25/2024 9:18 AM EDT) [facility] White Blood Count 4.2(L) 4.8 - 10.8 X10*3/uL [facility] Red Blood Count 3.61(L) 4.60 - 5.80 X10*6/uL [facility] Hemoglobin 13.2(L) 14.0 - 18.0 g/dl [facility] Hematocrit 36.8(L) 42.0 - 52.0 % [facility] Mean Corpuscular Volume 101.9(H) 80.0 - 98.0 fL [facility] Mean Corpuscular Hemoglobin 36.6(H) 27.0 - 33.0 pg [facility] Mean Corpuscular HGB Conc 35.9 31.0 - 36.0 g/dl [facility] Red Cell Distribution Width 15.7 11.0 - 16.0 % [facility] Platelet Count 204 160 - 400 X10*3/uL [facility] Mean Platelet Volume 10.1 9.4 - 12.4 fL [facility] Neutrophils Percent Auto 70.4 45 - 73 % [facility] Imm Gran Pct Auto 0.5(H) 0.0 - 0.4 % [facility] Lymphocytes Percent Auto 20.1 20 - 40 % [facility] Monocytes Percent Auto 8.6 2 - 11 % [facility] Eosinophils Percent Auto 0.2 0 - 4 % [facility] Basophils Percent Auto 0.2 0 - 2 % [facility] NRBC Pct Auto 0.0 0.0 - 0.2 /100WBC [facility] Neutrophils Absolute Auto 2.9 2.0 - 8.3 x10*3/uL [facility] Imm Gran Abs Auto 0.02 0.00 - 0.03 X10*3/uL [facility] Lymphocytes Absolute Auto 0.8(L) 1.2 - 4.9 X10*3/uL [facility] Monocytes Absolute Auto 0.4 0.1 - 1.2 X10*3/uL [facility] Eosinophils Absolute Auto 0.0 0.0 - 0.4 X10*3/uL [facility] Basophils Absolute Auto 0.0 0.0 - 0.2 X10*3/uL [facility] NRBC Abs Auto 0.000 0.0 - 0.012 X10*3/uL [facility] Blood Venous blood specimen / Unknown 10/25/2024 9:18 AM EDT 10/25/2024 11:37 AM EDT us Mickey Coyle MD LAB BLOOD ORDERABLES Final Resul t Performing Organization Address [facility] Co de Phone Number [facility] [address] [place] [phone] * (ABNORMAL) Hepatitis C Antibody with Reflex to HCV, RNA, Quantitative, Real- Time PCR (10/25/2024 9:18 AM EDT) Hepatitis C Antibody Reactive( A) Nonreactive [facility] Comment:Presumptive evidence of antibodies to HCV. Blood Venous blood specimen / Unknown 10/25/2024 9:18 AM EDT 10/25/2024 11:37 AM EDT us Mickey Coyle MD LAB BLOOD ORDERABLES Final Resul t Performing Organization Address [facility] de Phone Number [facility] [address] [place] [phone] * Hepatitis A Antibody, Total (10/25/2024 9:18 AM EDT) Hepatitis A Antibody IgG REACTIVE Nonreactive [facility] Comment:The presence of IgG anti-HAV implies past HAV infection(recent or distant) or vaccination against HAV. Blood Venous blood specimen / Unknown 10/25/2024 9:18 AM EDT 10/25/2024 11:37 AM EDT us Mickey Coyle MD LAB BLOOD ORDERABLES Final Resul t Performing Organization Address [facility] Co de Phone Number [facility] [address] [place] [phone] * Chlamydia/N. Gonorrhoeae RNA, TMA, Urogenitial (10/25/2024 9:18 AM EDT) CT PCR NOT DETECTED Not Detect. [facility] Comment:A not detected test result does [...] psychologicalconsequences. NG PCR NOT DETECTED Not Detect. [facility] Comment:A not detected test result does [...] AM EDT 10/25/2024 11:43 AM EDT Narrative [facility] - 10/25/2024 1:19 PM EDT Urine us Mickey Coyle MD LAB MICROBIOLOGY - GENERAL ORDER SUSAN Final Result [facility] [address] [place] [phone] * Hepatitis B surface antigen, EIA (10/25/2024 9:18 AM EDT) Hepatitis B Surface Ag Negative Negative [facility] Blood Venous blood specimen / Unknown 10/25/2024 9:18 AM EDT 10/25/2024 11:37 AM EDT us Mickey Coyle MD LAB BLOOD ORDERABLES Final Resul t Performing Organization Address [facility] Co de Phone Number [facility] [address] [place] [phone] * RPR (Monitor) with Reflex to??Titer (10/25/2024 9:18 AM EDT) RPR (Monitor) w/Refl Titer NON-REACTI VE NON-REACT YANELI [facility] Comment:THIS TEST WAS PERFOR MED AT:[employer] [place] [id number] FUNG MD Rapid Plasma Reagin Ab Titer TNP [facility] Blood Venous blood specimen / Unknown 10/25/2024 9:18 AM EDT 10/25/2024 11:37 AM EDT us Mickey Coyle MD LAB BLOOD ORDERABLES Final Resul t Performing Organization Address [facility] Co de Phone Number [facility] [address] [place] [phone] * HIV-1/2 Antigen and Antibodies, Fourth Generation, with Reflexes (10/25/2024 9:18 AM EDT) HIV AB/AG Nonreactive Nonreactive [facility] Comment:HIV-1 p24 Ag and/or HIV-1/HIV-2 Ab not detected.A test result that is nonreactive does not exclude thepossibility of exposure to or infection with HIV-1 and/orHIV-2. Nonreactive results in this assay for individualswith prior exposure to HIV-1 and/or HIV-2 may be due toantigen and antibody levels that are below the limit ofdetection of this assay.The Abigail Stewart HIV Ag/Ab Combo assay result andsupplemental assay results should be interpreted inconjunction with the patient's clinical presentation,history and other laboratory results. If the results areinconsistent with clinical evidence, additional testing issuggested to confirm the result. Blood Venous blood specimen / Unknown 10/25/2024 9:18 AM EDT 10/25/2024 11:37 AM EDT us Mickey Coyle MD LAB BLOOD ORDERABLES Final Resul t Performing Organization Address [facility] Co de Phone Number [facility] [address] [place] [phone] * Hepatitis B Surface Antibody, Qualitative (10/25/2024 9:18 AM EDT) ~Hepatitis B Surface Antibody REACTIVE Nonreactive [facility] Comment:REACTIVE: > 11.99 mI U/mL Blood Venous blood specimen / Unknown 10/25/2024 9:18 AM EDT 10/25/2024 11:37 AM EDT us Mickey Coyle MD LAB BLOOD ORDERABLES Final Resul t Performing Organization Address [facility] de Phone Number [facility] [address] [place] [phone] * Testosterone, Total, males (Adult), IA (10/25/2024 9:18 AM EDT) Pathologist [facility] Testosterone, Total 375 250 - 1100 ng/dL [facility] Comment:For additional infor mation, please refer tohttp://education.[employer]/faq/F[email or web address](This link is being provided for informational/educational purposes only.)This test was developed and its analytical performancecharacteristics have been determined by [employer] [place], [place]. It hasnot been cleared or approved by the U.S. Food and DrugAdministration. This assay has been validated pursuantto the CLIA regulations and is used for clinicalpurposes.THIS TEST WAS PERFORMED AT:[employer]/[id number] [place] [address]AOGXDUWBETZAIDA DESAI MD,PHD Blood Venous blood specimen / Unknown 10/25/2024 9:18 AM EDT 10/25/2024 11:37 AM EDT us Mickey Coyle MD LAB BLOOD ORDERABLES Final Resul t Performing Organization Address [facility] de Phone Number [facility] [address] [place] [phone] * (ABNORMAL) Lipid Panel, Standard (10/25/2024 9:18 AM EDT) Triglycerides 305(H) <150 mg/dL [facility] Comment:Desirable Triglyceri de: less than 150 mg/dLBorderline High Triglyceride 150-199 mg/dLHigh Triglyceride: 200-499 mg/dLVery High Triglyceride: greater than or equal to 5OO mg/dL Cholesterol 137 <200 mg/dL [facility] Comment:Desirable Cholestero l: less than 200 mg/dLBorderline High Cholesterol: 200-239 mg/dLHigh Cholesterol: greater than 239 mg/dL LDL Cholesterol Calculated 11 <100 mg/dL [facility] Comment:Desirable LDL: less than 100 mg/dLNear Optimal/Above Optimal LDL: 110- 129 mg/dLBorderline High LDL: 130-159 mg/dLHigh LDL: 160-189 mg/dLVery High LDL: greater than or equal to 190 mg/dL HDL Cholesterol 65 >40 mg/dL [facility] Comment:Desirable HDL: great er than 40 mg/dL Note: This HDL assay may give artificially low results in patients with liver disease. Blood Venous blood specimen / Unknown 10/25/2024 9:18 AM EDT 10/25/2024 11:37 AM EDT us Mickey Coyle MD LAB BLOOD ORDERABLES Final Resul t Performing Organization Address [facility] Co de Phone Number [facility] [address] [place] [phone] * (ABNORMAL) Comprehensive Metabolic Panel (10/25/2024 9:18 AM EDT) Sodium 142 135 - 145 mmol/L [facility] Potassium 3.6 3.3 - 5.1 mmol/L [facility] Chloride 103 96 - 108 mmol/L [facility] Carbon Dioxide 28 22 - 29 mmol/L [facility] Anion Gap 15 12 - 20 [facility] Urea Nitrogen (BUN) 10 9 - 16 mg/dL [facility] Creatinine, Serum 0.77 0.5 - 1.4 mg/dL [facility] Estimated Glomerular Filt Rate >60 [facility] Comment:Chronic Kidney Disea se: Estimated GFR < 60 mL/min/[id number] Kidney Disease: Estimated GFR < 15 mL/min/1.73m2 Glucose 98 60 - 115 mg/dL [facility] Calcium 8.2(L) 8.4 - 10.2 mg/dL [facility] Bilirubin, Total 1.1(H) 0.0 - 1.0 mg/dL [facility] Aspartate Amino Transferase 129(H) 5 - 37 U/L [facility] Alanine Aminotransferase 43(H) 0 - 40 U/L [facility] Total Protein 6.9 6.5 - 8.0 g/dL [facility] Albumin Level 3.3(L) 3.5 - 5.0 g/dL [facility] Alkaline Phosphatase 90 39 - 117 U/L [facility] Blood Venous blood specimen / Unknown 10/25/2024 9:18 AM EDT 10/25/2024 11:37 AM EDT us Mickey Coyle MD LAB BLOOD ORDERABLES Final Resul t [facility] [address] [place] [address] [phone] from Last 3 Months Insurance [facility] C3 Care Teams Insecticide Expert Relationship Specialty Start Date End Date Name, MD Mickey [address] [place] [address] PCP - General Internal Medicine 10/24/24
== END 2024-12-11 08:52 | disposition home or self-care (01) ==
LOC: HO.MAMMO 08:51
PROVIDERS: PCP Internal Medicine Geriatric Medicine; Visit Provider Surgery
DX: N62 Hypertrophy of breast (principal)
CPT/HCPCS: 76642; 77062; 77066

== ENCOUNTER → 2024-12-11 09:00 | Outpatient (BNV) | payer MEDICAID, SELFPAY | PROVIDERS: PCP Internal Medicine Geriatric Medicine; Visit Provider Internal Medicine | DX: N62 Hypertrophy of breast (principal); R92.332 Mammographic heterogeneous density, left breast | CPT/HCPCS: 76642; 77062; 77066 ==

== ENCOUNTER 2024-12-12 08:51 | Outpatient (REF) | payer MEDICAID, SELFPAY ==
--- NOTE | ~2024-12-12 | US_ITS ---
EXAMINATION: US ABDOMEN COMPLETE WITH LIVER ELASTOGRAPHY HISTORY: elevated Bili 2.2 TECHNIQUE: Real-time grayscale ultrasound imaging of the abdomen was performed and images were reviewed. COMPARISON: There are no prior studies for comparison. FINDINGS: Liver: The right lobe of the liver measures 14.0 cm in size. The left lobe of the liver measures 9.3 cm in size. The liver demonstrates coarsened, increased echotexture, consistent with steatosis. No focal mass or intrahepatic biliary ductal dilatation is identified. There is normal hepatopedal flow in the portal vein. Ultrasound elastography of the liver was performed with 10 separate measurements of the liver parenchyma with the patient in the supine position. Measurements were obtained approximately 2 cm below Yvonne's capsule and perpendicular to the capsule. Images are of satisfactory quality. The median shear wave velocity is 2.27 m/s. The interquartile range/median (IQR/median) is 0.11. Gallbladder and biliary tree: The gallbladder is unremarkable, without evidence of calculi, wall thickening, or pericholecystic fluid. There is no sonographic Holbrook sign. The common bile duct is normal in caliber measuring 3 mm. Kidneys: The right kidney measures 10.0 cm in length. The left kidney measures 10.9 cm in length. The kidneys are unremarkable, without evidence of masses, hydronephrosis, or calculi. Pancreas: The pancreatic head, neck, and body are unremarkable. The pancreatic tail is obscured by bowel gas. Spleen: The spleen is normal in size and contour, measuring 9.9 cm in length. Abdominal aorta and inferior vena cava: The visualized portions of the abdominal aorta and inferior vena cava are normal in caliber. There is no free fluid in the abdomen. US/US abdomen comp w elastography IMPRESSION: Hepatic steatosis. The median shear wave velocity in the liver is 2.27 m/s, corresponding to a median liver stiffness of 15.65 kPa. The IQR/median value is 0.11. This is indicative of a quality data set. Findings are indicative of a high elastography value indicating advanced chronic liver disease. REFERENCE: Society of Radiologists in Ultrasound Liver Stiffness Thresholds (2019): LIVER STIFFNESS THRESHOLDS: *Shear wave velocity less than 1.3 m/s (Liver Stiffness equal or less than 5 kPa): High probability of being normal. *Shear wave velocity less than 1.7 m/s (Liver Stiffness less than 9 kPa): In the absence of other known clinical signs, rules out compensated advanced chronic liver disease. *Shear wave velocity between 1.7-2.1 m/s (Liver Stiffness 9-13 kPa): Suggestive of compensated advanced chronic liver disease but need further test for confirmation. *Shear wave velocity between 2.1-2.4 m/s (Liver Stiffness 13-17 kPa): Rules in compensated advanced chronic liver disease. *Shear wave velocity greater than 2.4 m/s (Liver Stiffness over 17 kPa): Suggestive of clinically significant portal hypertension. QUALITY OF DATA SET: *IQR/Median value equal or less than 0.15 implies a quality data set. *IQR/Median value over 0.15 implies a poor quality data set. SIGNIFICANT CHANGE FROM PRIOR EXAM: Significant change if liver stiffness measurement is 10% or greater from prior exam. OTHER CONSIDERATIONS: The stage of liver fibrosis may be overestimated in the setting of acute hepatitis, liver inflammation, elevated liver function tests, hepatic vascular congestion, obstructive cholestasis, non-fasting state, and infiltrative diseases such as amyloidosis and lymphoma. In some patients with NAFLD, the liver stiffness thresholds for compensated advanced chronic liver disease may be lower. In causes other than viral hepatitis and NAFLD, liver stiffness thresholds are not well established. Electronically signed by: Conrad Santiago MD 12/12/2024 09:51 AM EDT
--- OUTSIDE RECORDS SUMMARY | 2024-12-12 09:12 | XMS_ITS | Encounter Summary ---
Author Organization [employer] Address [address] [place] [address] Care Team Providers Care Mobility Specialist Name Role Phone Name, Mickey ANGUIANO Primary Care Provider [phone] Encounter Details Date Type Department Care Team (Late st Contact Info) Description 12/11/2024 Orders Only [facility] [address] [facility] [place] [id number] Name, MD Mickey [address] [facility] [place] [address] Social History Tobacco Use Types Packs/Day Years [...] Description 12/21/2024 11:30 AM EDT Office Visit [facility] [address] [place] [address] Name, MD Mickey [address] [place] [address] 02/26/2025 9:00 AM EDT Office Visit [facility] [address] [place] [address] Korin Dumont, OD [address] [place] [address] documented as of this encounter Procedures Procedure Name Priority Date/Time Associated Diagnosis Comments BI US BREAST LIMITED LEFT Routine 12/11/2024 9:10 AM EDT documented in this encounter Results * BI US Breast Limited Left (12/11/2024 9:10 AM EDT) Anatomical Region Laterality Modality Breast Left Ultrasound 12/11/2024 9:10 AM EDT Narrative 12/11/2024 9:50 AM EDT ? [facility] ? [address] ?[place] [address] ? Ultrasound Report ? Signed ? Patient: Chani,Odilon ?MR#: [id number] ?? [id number] ? : 1965 ?Acct:[id number] ? Age/Sex: 59 / M ?ADM Date: 05/27/25 ? Loc: HO.MAMMO ? Attending Dr: Amaury Porter MD ? Ordering Physician: Jonna,Mickey ANGUIANO ?? Date of Service: 12/11/24 ?? Procedure(s): US breast LT limited mamm only ?? Accession Number(s): [id number] ? cc: Name,Mickey ANGUIANO ? EXAMINATION: ?? MM DIAGNOSTIC DIGITAL BREAST TOMOSYNTHESIS, BILATERAL ?? Left Limited ultrasound. ? CLINICAL INFORMATION: ? History of left gynecomastia now with left breast enlargement and pain. ?? The patient is under the care of a breast surgeon Dr. Ybarra and is ?? planning to undergo a excision left breast tissue December 2024. ? COMPARISON: ?? Mammography: Comparison is made with relevant prior exams. ? TECHNIQUE: ?? Digital breast mammography with tomosynthesis is performed in both the ?? craniocaudal and mediolateral oblique views along with computer-aided ?? detection (CAD). ? FINDINGS: ?? There is minimal right retroareolar gynecomastia and moderate nodular ?? left gynecomastia. ?? BB marker retroareolar region of the left breast anterior depth with ?? underlying nodular gynecomastia. ?? No suspicious masses calcifications or other abnormal findings. ? Targeted color Doppler ultrasound of the left retroareolar region area ?? of patient's symptoms pain and swelling demonstrates moderate nodular ?? retroareolar gynecomastia. No other sonographic abnormality is seen. ? Results are provided to the patient at time of visit by the ?? technologist. ? US/US breast LT limited mamm only ?? IMPRESSION: ?? Minimal right gynecomastia and moderate left nodular gynecomastia. ?? Benign. ? ASSESSMENT: ? BI-RADS BI-RADS 2 - Benign Findings ? RECOMMENDATION: ? Recommend clinical evaluation, consultation and follow-up. ? Electronically signed by: ??Nanette Silverman DO ??12/11/2024 09:47 AM EDT ?? RP ? Dictated By: ?Nanette Silverman DO ? Signed By: ?<Electronically signed by Nanette Silverman, DO in OV> ? 12/11/24 0947 ? DD/ 0910 ? TD/TT: 12/11/24 0931 ? Supervisor Cellars: ? Procedure Note Donovan, Image - 12/11/2024 [facility] [address] [place] [address] [place] [address] Ultrasound Report Signed Patient: Odilon WildeMR#: [id number] : 1965Acct:[id number] Age/Sex: 59 / MADM Date: 12/11/24 Loc: HO.MAMMO Attending Dr: Amaury Porter MD Ordering Physician: NameMickey MD Date of Service: 12/11/24 Procedure(s): US breast LT limited mamm only Accession Number(s): [id number] cc: Name,Mickey ANGUIANO EXAMINATION: MM DIAGNOSTIC DIGITAL BREAST TOMOSYNTHESIS, BILATERAL Left Limited ultrasound. CLINICAL INFORMATION: History of left gynecomastia now with left breast enlargement and pain. The patient is under the care of a breast surgeon Dr. Ybarra and is planning to undergo a excision left breast tissue December 2024. COMPARISON: Mammography: Comparison is made with relevant prior exams. TECHNIQUE: Digital breast mammography with tomosynthesis is performed in both the craniocaudal and mediolateral oblique views along with computer-aided detection (CAD). FINDINGS: There is minimal right retroareolar gynecomastia and moderate nodular left gynecomastia. BB marker retroareolar region of the left breast anterior depth with underlying nodular gynecomastia. No suspicious masses calcifications or other abnormal findings. Targeted color Doppler ultrasound of the left retroareolar region area of patient's symptoms pain and swelling demonstrates moderate nodular retroareolar gynecomastia. No other sonographic abnormality is seen. Results are provided to the patient at time of visit by the technologist. US/US breast LT limited mamm only IMPRESSION: Minimal right gynecomastia and moderate left nodular gynecomastia. Benign. ASSESSMENT: BI-RADS BI-RADS 2 - Benign Findings RECOMMENDATION: Recommend clinical evaluation, consultation and follow-up. Electronically signed by: Nanette Silverman DO 12/11/2024 09:47 AM EDT Dictated By: Nanette Silverman DO Signed By: <Electronically signed by Nanette Silverman DO in OV> 12/11/24 0947 DD/ 0910 TD/TT: 12/11/24 0931 Supervisor Cellars: Mickey Coyle MD IMG US PROCEDURES Final Result documented in this encounter Visit Diagnoses Not on filedocumented in this encounter Additional Health Concerns Assessment Noted Time PHQ-9 Depression Total Score: 24 025 9:51 AM EDT documented as of this encounter Care Teams Mobility Specialist Relationship Specialty Start Date End Date Name, MD Mickey [address] [place] [address] PCP - General Internal Medicine 10/24/24 documented as of this encounter
== END 2024-12-12 08:52 | disposition home or self-care (01) ==
LOC: HO.US 08:51
PROVIDERS: PCP Internal Medicine Geriatric Medicine; Visit Provider Family Medicine
DX: B18.2 Chronic viral hepatitis C (principal); Z86.19 Personal history of other infectious and parasitic diseases
CPT/HCPCS: 76700; 76981

== ENCOUNTER → 2024-12-12 08:54 | Outpatient (BNV) | payer MEDICAID, SELFPAY | PROVIDERS: PCP Internal Medicine Geriatric Medicine; Visit Provider Radiology Diagnostic Radiology | DX: N18.9 Chronic kidney disease, unspecified (principal); K76.0 Fatty (change of) liver, not elsewhere classified | CPT/HCPCS: 76700; 76981 ==

== ENCOUNTER 2024-12-19 08:12 | Day surgery (SDC) | payer MEDICAID, SELFPAY ==
--- OUTSIDE RECORDS SUMMARY | 2024-12-04 09:33 | XMS_ITS | Clinical Summary ---
Author Organization [employer] Address [address] [facility] [address] [place] [address] Care Team Providers Care Pocket Cutter Name Role Phone Name, Mickey ANGUIANO Primary Care Provider [phone] Allergies No known active allergies Medications * This document contains information received from the source organization and may not represent a complete record from that organization. Multiple Vitamins-Iron (Daily Mely Multivitamin/Iro n) tablet One tab po daily 90 tablet 3 10/31/2024 Active folic acid (Folvite) 1 MG tablet Take 1 tab po dialy 90 tablet 3 10/31/2024 Active Active Problems Problem Noted Date Diagnosed Date Gynecomastia 10/24/2024 Overview (10/24/2024): Check testosterone levels, mammogram, referral to breast surgeon Encounters * This document contains information received from the source organization and may not represent a complete record from that organization. Date Type Department Care Team Description 11/22/2024 Telephone [facility] [address] [place] [phone] Corrie Alcantar MA 11/22/2024 Telephone [facility] [address] [place] [phone] Amelia Jones MD 11/22/2024 Telephone [facility] [address] [place] [address] Brianna Bui, ISAC 11/22/2024 Orders Only [facility] [address] [place] [phone] Brianna Bui, RN History of hepatitis C (Primary Dx) 11/21/2024 11:00 AM EDT Telemedicine [facility] [address] [place] [phone] Brianna Bui, RN History of hepatitis C 11/21/2024 Telephone [facility] [address] [facility] [place] [address] Brianna Bui, ISAC 11/21/2024 Travel 11/21/2024 Orders Only [facility] [place] [address] Amelia Jones MD 11/13/[address] [address] Brianna Bui, ISAC 11/08/[address] [address] Biranna Bui RN 10/31/[address] [address] Mickey Coyle MD Results 10/31/2024 Orders Only [address] [address] Mickey Coyle MD Folic acid deficiency (Primary Dx) 10/31/2024 Orders Only [address] [address] Mickey Coyle MD 10/30/2024 Orders Only [address] [address] NameMickey MD Chronic hepatitis C without hepatic coma (CMS/HCC) (Primary Dx); Elevated MCV 10/25/2024 Orders Only [address] [address] Mickey Coyle MD 10/24/2024 9:00 AM EDT Office Visit [address] [address] Mickey Coyle MD Gynecomastia (Primary Dx); History of hepatitis C; Low libido; Blurred vision; Depression, unspecified depression type; Screening for cholesterol level; History of colonoscopy; Encounter for immunization; History of heroin abuse (CMS/HCC) 10/24/2024 Travel 10/17/2024 Population Health Risk Score [facility] () Department [address] [place] [phone] Provider, Population Health Generic 10/16/2024 Patient Outreach [facility] [address] [place] [address] Name, MD Mickey Pre-visit Planning (SDOH unable to reach, Number disconnected) from Last 3 Months Immunizations Immunization Administration Dates Next Due Pneumococcal Conjugate PCV 20 10/24/2024 Td (adult), 5 Lf tetanus tox oid, preservative free, adsorbed 04/01/2017 Tdap 10/24/2024 Social History Tobacco Use Types [...] t he electric, gas, oil or water [employer] threatened to shut off services in your [...] Description 12/21/2024 11:30 AM EDT Office Visit [facility] [address] [place] [address] Name, MD Mickey [address] [place] [address] Health Maintenance Due Date Last Done Comments CT Colonography 1967 Colonoscopy 1967 Colorectal Cancer Screening 1967 FIT DNA/Cologuard 1967 FIT 1967 FOBT 1967 Sigmoidoscopy 1967 Hepatitis A Vaccines (1 of 2 - Risk 2-dose series) 1986 Hepatitis B Vaccines (1 of 3 - 19+ 3-dose series) 1986 Zoster Vaccines (1 of 2) 2017 COVID-19 Vaccine (2023-2 5 season) 2024 02/02/2021, 01/05/2021 Influenza Vaccine (#1) 2024 Alcohol/Substance Use Screening 10/24/2025 10/24/2024 Depression Screening 10/24/2025 10/24/2024, 10/24/2024 Disability Screening 10/24/2025 10/24/2024 SDOH Screening 10/24/2025 10/24/2024 Tobacco Screening 10/24/2025 10/24/2024 Lipid Panel 10/25/2029 10/25/2024 DTaP/Tdap/Td Vaccines (2 - T d or Tdap) 10/24/2034 10/24/2024, 04/01/2017 RSV Patients and Patients Aged 60 years [...] patient's age to complete this topic Meningococcal B Vaccine Aged Out No l onger eligible based on patient's age to complete [...] Procedure Name Priority Date/Time Associated Diagnosis Comments LIVER FIBROSIS, FIBROTEST ACTITEST PANEL Routine 11/21/2024 9:06 AM EDT HEPATITIS C VIRAL RNA GENOTYPE, LIPA Routine 11/21/2024 9:06 AM EDT HEPATIC FUNCTION PANEL Routine 9:06 AM EDT PROTHROMBIN TIME-INR Routine 11/21/2024 9:06 AM EDT T4, FREE Routine 10/31/2024 9:04 AM EDT TSH W/REFLEX TO FT4 Routine 10/31/2024 9 :04 AM EDT Elevated MCV VITAMIN B12/FOLATE, SERUM PANEL Routine 10/31/2024 9:04 AM EDT Elevated MCV HEPATITIS C VIRAL RNA, QUANTITATIVE, REAL-TIME PCR [...] from Last 3 Months Results * (ABNORMAL) Liver Fibrosis (HCV), FibroTest-ActiTest Panel (11/21/2024 9:06 AM EDT) Liver Fibrosis Score 0.94 [facility] Liver Fibrosis Stage F4 [facility] Liver Fibrosis Interpretation SEE NOTE [facility] Comment:severe fibrosisFibro Test Score (f) Metavir Score f>=0 and f<=0.21 : F0 (no fibrosis)f>0.21 and f<=0.27 : F0-F1 (no fibrosis)f>0.27 and f<=0.31 : F1 (minimal fibrosis)f>0.31 and f<=0.48 : F1-F2 (minimal fibrosis)f>0.48 and f<=0.58 : F2 (moderate fibrosis)f>0.58 and f<=0.72 : F3 (advanced fibrosis)f>0.72 and f<=0.74 : F3-F4 (advanced fibrosis)f>0.74 and f<=1.00 : F4 (severe fibrosis) Nec Inflam Act Score 0.25 [facility] Nec Inflam Act Grade A0-A1 [facility] Nec Inflam Act Interpretation SEE NOTE [facility] Comment:no activityActiTest Score (a) Metavir Score a>=0 and a<=0.17 : A0 (no activity)a>0.17 and a<=0.29 : A0-A1 (no activity)a>0.29 and a<=0.36 : A1 (minimal activity)a>0.36 and a<=0.52 : A1-A2 (minimal activity)a>0.52 and a<=0.60 : A2 (significant activity)a>0.60 and a<=0.62 : A2-A3 (significant activity)a>0.62 and a<=1.00 : A3 (severe activity) YFR-Odlya-0-Macroglo bulin 221 106 - 279 mg/dL [facility] FIB-Haptoglobin <8(A) 43 - 212 mg/dL [facility] FIB-Apolipoprotein A1 170 94 - 176 mg/dL [facility] FIB-Total Bilirubin 1.7(A) 0.2 - 1.2 mg/dL [facility] FIB-GGT 719(A) 3 - 85 U/L [facility] FIB-ALT 25 9 - 46 U/L [facility] Reference ID [id number] [facility] Footnote SEE NOTE [facility] Comment: The reliability of results is dependent on compliance withthe preanalytical and analytical conditions recommended byBioPredictive. The tests have to be deferred for: acutehemolysis, acute hepatitis, acute inflammation, extrahepatic cholestasis. The advice of a specialist should besought for interpretation in chronic hemolysis and Gilbert'ssyndrome. The test interpretation is not validated in livertransplant patients. Isolated extreme values of one of thecomponents should lead to caution in interpreting theresults. In case of discordance between a biopsy result radha test, it is recommended to seek the advice of aspecialist. The causes of these discordances could be due toa flaw of the test or to a flaw in the biopsy: i.e. a liverbiopsy has a 33% variability rate for one fibrosis stage.FibroTest is interpretable for chronic hepatitis B and C,alcoholic and non alcoholic steatosis. ActiTest isinterpretable for chronic hepatitis B and C.The performance characteristics have been determined by[employer] [facility]. Ithas not been cleared or approved by the U.S. Food and DrugAdministration. Performance characteristics refer to theanalytical performance of the test.[employer], [employer], the associated logo, [employer] and all associated [employer] are theregistered trademarks of [employer]. All third partymarks - (R) and (TM) - are the property of their respectiveowners. (C) [id number] [employer]. Allrights reserved.THIS TEST WAS PERFORMED AT:Zapproved/PrintEco [id number] [facility], [place] ??[id number] ALVARADO MD,PHD,JEANNE 11/21/2024 9:06 AM EDT 11/21/2024 11:07 AM EDT Amelia Jones MD LAB BLOOD ORDERABLES Final R esult Performing Organization Address [facility] Co de Phone Number [facility] [address] [place] [phone] * Hepatitis C Viral RNA, Genotype, LiPA (11/21/2024 9:06 AM EDT) Hepatitis C Genotype 1b [facility] Comment:The method used in t his test is RT-PCR and reversehybridization (Line Probe) of the 5' UTR and coreregion of the HCV genome.The analytical performance characteristics of thisassay have been determined [place]. The modificationshave not been cleared or approved by the FDA. Thisassay has been validated pursuant to the CLIAregulations and is used for clinical purposes.For additional information, please refer tohttp://education.Fanzo/faq/HCVGenotyping(This link is being provided for informational/educational purposes only.)THIS TEST WAS PERFORMED AT:Zapproved/[facility] [place] [phone] DESAI MD,PHD 11/21/2024 9:06 AM EDT 11/21/2024 10:57 AM EDT Amelia Jones MD LAB BLOOD ORDERABLES Final R esult Performing Organization Address [facility]/ZIP Co de Phone Number [facility] [address] [place] [phone] * (ABNORMAL) Prothrombin Time-INR (11/21/2024 9:06 AM EDT) Prothrombin Time 13.1(H) 10.9 - 12.4 SEC [facility] INTERNATIONAL NORM RATIO 1.1 0.9 - 1.1 [facility] Comment:INTERNATIONAL NORMAL IZED RATIO (INR) REFERENCE RANGES Reference RangeFor patients not on anticoagulant therapy: 0.9 - 1.1INR ranges for oral anticoagulanttherapy:For prevention and treatment of venous thrombosis and pulmonary embolism: 2.0 - 3.0For acute myocardial infarction with aspirin therapy: 2.0 - 3.0For acute myocardial infarction without aspirin therapy: 3.0 - 4.0For patients with mechanical prosthetic heart valves: 2.5 - 3.5 11/21/2024 9:06 AM EDT 11/21/2024 11:03 AM EDT Amelia Jones MD LAB BLOOD ORDERABLES Final R esult Performing Organization Address [facility] Co de Phone Number [facility] [address] [place] [phone] * (ABNORMAL) Hepatic Function Panel (11/21/2024 9:06 AM EDT) Bilirubin, Total 2.2(H) 0.0 - 1.0 mg/dL [facility] Comment:Slight Icterus. Bilirubin, Direct 1.0(H) 0.0 - 0.5 mg/dL [facility] Comment:Slight Icterus. Aspartate Amino Transferase 115(H) 5 - 37 U/L [facility] Alanine Aminotransferase 31 0 - 40 U/L [facility] Total Protein 7.2 6.5 - 8.0 g/dL [facility] Albumin Level 3.4(L) 3.5 - 5.0 g/dL [facility] Alkaline Phosphatase 97 39 - 117 U/L [facility] 11/21/2024 9:06 AM EDT 11/21/2024 11:07 AM EDT Amelia Jones MD LAB BLOOD ORDERABLES Final R esult Performing Organization Address [facility] Co de Phone Number [facility] [address] [place] [phone] * (ABNORMAL) Vitamin B12/Folate, Serum Panel (10/31/2024 9:04 AM EDT) Vitamin B12 373 200 - 900 pg/mL [facility] Comment:NORMAL 200-900 PG/ML INDETERMINATE 160-199 PG/ML DEFICIENT < 160 PG/ML Folate <2.2(L) > or = 4.0 ng/mL [facility] Comment:Reference Values:> o r = 4.0 ng/mL< 4.0 ng/mL suggests folate deficiency Methotrexate, aminopterin and folinic acid(leucovorin) are chemotherapeutic agents whose molecularstructures are similar to folate; therefore, the Architectfolate assay cannot be used for patients using these drugs. Blood Venous blood specimen / Unknown 10/31/2024 9:04 AM EDT 10/31/2024 11:10 AM EDT us Mickey Coyle MD LAB BLOOD ORDERABLES Final Resul t Performing Organization Address City/[facility]/ZIP Co de Phone Number [facility] [address] [place] [phone] * (ABNORMAL) TSH W/Reflex to FT4 (10/31/2024 9:04 AM EDT) Pathologist [facility] TSH reflex Free T4 0.14(L) 0.32 - 4.0 uIU/mL [facility] Blood Venous blood specimen / Unknown 10/31/2024 9:04 AM EDT 10/31/2024 11:10 AM EDT us Mickey Coyle MD LAB BLOOD ORDERABLES Final Resul t Performing Organization Address City/[facility]/ZIP Co de Phone Number [facility] [address] [place] [phone] * T4, Free (10/31/2024 9:04 AM EDT) Free T4 (Free Thyroxine) 1.10 0.71 - 1.85 ng/dL [facility] 10/31/2024 9:04 AM EDT 10/31/2024 11:10 AM EDT us Mickey Coyle MD LAB BLOOD ORDERABLES Final Resul t Performing Organization Address [facility] de Phone Number [facility] [address] [place] [phone] * (ABNORMAL) Hepatitis C Viral RNA, Quantitative, Real-Time PCR (10/25/2024 9:18 AM EDT) Pathologist [facility] Hepatitis C Viral Load 626888(A) NOT DETECTED IU/mL [facility] HCV Log PCR 5.22(A) NOT DETECTED Log IU/mL [facility] Comment:For additional infor mation, please refer tohttp://education.Next 2 Greatness/faq/VBB38o9(This link is being provided for informational/educational purposes only.)THIS TEST WAS PERFORMED AT:[employer] [place] [phone] FUNG MD 10/25/2024 9:18 AM EDT 10/26/2024 12:16 PM EDT us Mickey Coyle MD LAB BLOOD ORDERABLES Final Resul t Performing Organization Address [facility] de Phone Number [facility] [address] [place] [phone] * (ABNORMAL) CBC auto differential (10/25/2024 9:18 AM EDT) Pathologist [facility] White Blood Count 4.2(L) 4.8 - 10.8 X10*3/uL [facility] Red Blood Count 3.61(L) 4.60 - 5.80 X10*6/uL [facility] Hemoglobin 13.2(L) 14.0 - 18.0 g/dl [facility] Hematocrit 36.8(L) 42.0 - 52.0 % [facility] Mean Corpuscular Volume 101.9(H) 80.0 - 98.0 fL [facility] Mean Corpuscular Hemoglobin 36.6(H) 27.0 - 33.0 pg [facility] Mean Corpuscular HGB Conc 35.9 31.0 - 36.0 g/dl [facility] Red Cell Distribution Width 15.7 11.0 - 16.0 % [facility] Platelet Count 204 160 - 400 X10*3/uL [facility] Mean Platelet Volume 10.1 9.4 - 12.4 fL [facility] Neutrophils Percent Auto 70.4 45 - 73 % [facility] Imm Gran Pct Auto 0.5(H) 0.0 - 0.4 % [facility] Lymphocytes Percent Auto 20.1 20 - 40 % [facility] Monocytes Percent Auto 8.6 2 - 11 % [facility] Eosinophils Percent Auto 0.2 0 - 4 % [facility] Basophils Percent Auto 0.2 0 - 2 % [facility] NRBC Pct Auto 0.0 0.0 - 0.2 /100WBC [facility] Neutrophils Absolute Auto 2.9 2.0 - 8.3 x10*3/uL [facility] Imm Gran Abs Auto 0.02 0.00 - 0.03 X10*3/uL [facility] Lymphocytes Absolute Auto 0.8(L) 1.2 - 4.9 X10*3/uL [facility] Monocytes Absolute Auto 0.4 0.1 - 1.2 X10*3/uL [facility] Eosinophils Absolute Auto 0.0 0.0 - 0.4 X10*3/uL [facility] Basophils Absolute Auto 0.0 0.0 - 0.2 X10*3/uL [facility] NRBC Abs Auto 0.000 0.0 - 0.012 X10*3/uL [facility] Blood Venous blood specimen / Unknown 10/25/2024 9:18 AM EDT 10/25/2024 11:37 AM EDT us Mickey Coyle MD LAB BLOOD ORDERABLES Final Resul t Performing Organization Address [facility] de Phone Number [facility] [address] [place] [phone] * (ABNORMAL) Hepatitis C Antibody with Reflex to HCV, RNA, Quantitative, Real- Time PCR (10/25/2024 9:18 AM EDT) Pathologist [facility] Hepatitis C Antibody Reactive( A) Nonreactive [facility] Comment:Presumptive evidence of antibodies to HCV. Blood Venous blood specimen / Unknown 10/25/2024 9:18 AM EDT 10/25/2024 11:37 AM EDT Mickey Coyle MD LAB BLOOD ORDERABLES Final Resul t Performing Organization Address [facility] de Phone Number [facility] [address] [place] [phone] * Hepatitis A Antibody, Total (10/25/2024 9:18 AM EDT) [facility] Hepatitis A Antibody IgG REACTIVE Nonreactive [facility] Comment:The presence of IgG anti-HAV implies past HAV infection(recent or distant) or vaccination against HAV. Blood Venous blood specimen / Unknown 10/25/2024 9:18 AM EDT 10/25/2024 11:37 AM EDT us Mickey Coyle MD LAB BLOOD ORDERABLES Final Resul t Performing Organization Address [facility] de Phone Number [facility] [address] [place] [phone] * Chlamydia/N. Gonorrhoeae RNA, TMA, Urogenitial (10/25/2024 9:18 AM EDT) [facility] CT PCR NOT DETECTED Not Detect. [facility] Comment:A not detected test result [...] psychologicalconsequences. NG PCR NOT DETECTED Not Detect. [facility] Comment:A not detected test result [...] AM EDT 10/25/2024 11:43 AM EDT Narrative [facility] - 10/25/2024 1:19 PM EDT Urine Mickey Coyle MD LAB MICROBIOLOGY - GENERAL ORDER SUSAN Final Result [facility] [address] [place] [phone] * Hepatitis B surface antigen, EIA (10/25/2024 9:18 AM EDT) Hepatitis B Surface Ag Negative Negative [facility] Blood Venous blood specimen / Unknown 10/25/2024 9:18 AM EDT 10/25/2024 11:37 AM EDT us Mickey Coyle MD LAB BLOOD ORDERABLES Final Resul t Performing Organization Address [facility]/ZIP Co de Phone Number [facility] [address] [place] [phone] * RPR (Monitor) with Reflex to??Titer (10/25/2024 9:18 AM EDT) RPR (Monitor) w/Refl Titer NON-REACTI VE NON-REACT YANELI [facility] Comment:THIS TEST WAS PERFOR MED AT:[employer] [place] [id number] FUNG MD Rapid Plasma Reagin Ab Titer TNP [facility] Blood Venous blood specimen / Unknown 10/25/2024 9:18 AM EDT 10/25/2024 11:37 AM EDT us Mickey Coyle MD LAB BLOOD ORDERABLES Final Resul t Performing Organization Address [facility] Co de Phone Number [facility] [address] [place] [phone] * HIV-1/2 Antigen and Antibodies, Fourth Generation, with Reflexes (10/25/2024 9:18 AM EDT) HIV AB/AG Nonreactive Nonreactive [facility] Comment:HIV-1 p24 Ag and/or HIV-1/HIV-2 Ab not detected.A test result that is nonreactive does not exclude thepossibility of exposure to or infection with HIV-1 and/orHIV-2. Nonreactive results in this assay for individualswith prior exposure to HIV-1 and/or HIV-2 may be due toantigen and antibody levels that are below the limit ofdetection of this assay.The [employer] HIV Ag/Ab Combo assay result andsupplemental assay results should be interpreted inconjunction with the patient's clinical presentation,history and other laboratory results. If the results areinconsistent with clinical evidence, additional testing issuggested to confirm the result. Blood Venous blood specimen / Unknown 10/25/2024 9:18 AM EDT 10/25/2024 11:37 AM EDT us Mickey Coyle MD LAB BLOOD ORDERABLES Final Resul t Performing Organization Address [facility] Co de Phone Number [facility] [address] [place] [phone] * Hepatitis B Surface Antibody, Qualitative (10/25/2024 9:18 AM EDT) ~Hepatitis B Surface Antibody REACTIVE Nonreactive [facility] Comment:REACTIVE: > 11.99 mI U/mL Blood Venous blood specimen / Unknown 10/25/2024 9:18 AM EDT 10/25/2024 11:37 AM EDT us Mickey Coyle MD LAB BLOOD ORDERABLES Final Resul t Performing Organization Address [facility] Co de Phone Number [facility] [address] [place] [phone] * Testosterone, Total, males (Adult), IA (10/25/2024 9:18 AM EDT) Pathologist [facility] Testosterone, Total 375 250 - 1100 ng/dL [facility] Comment:For additional infor tisha, please refer tohttp://education.Cmune.Hojo.pl/faq/MxetcXmkpcikrnsjbXZZIXNJAH315(This link is being provided for informational/educational purposes only.)This test was developed and its analytical performancecharacteristics have been determined by [employer] [place]. It hasnot been cleared or approved by the U.S. Food and DrugAdministration. This assay has been validated pursuantto the CLIA regulations and is used for clinicalpurposes.THIS TEST WAS PERFORMED AT:Zapproved/[facility] [place] [id number] DESAI MD,PHD Blood Venous blood specimen / Unknown 10/25/2024 9:18 AM EDT 10/25/2024 11:37 AM EDT us Mickey Coyle MD LAB BLOOD ORDERABLES Final Resul t Performing Organization Address [facility] Co de Phone Number [facility] [address] [place] [phone] * (ABNORMAL) Lipid Panel, Standard (10/25/2024 9:18 AM EDT) Triglycerides 305(H) <150 mg/dL [facility] Comment:Desirable Triglyceri de: less than 150 mg/dLBorderline High Triglyceride 150-199 mg/dLHigh Triglyceride: 200-499 mg/dLVery High Triglyceride: greater than or equal to 5OO mg/dL Cholesterol 137 <200 mg/dL [facility] Comment:Desirable Cholestero l: less than 200 mg/dLBorderline High Cholesterol: 200-239 mg/dLHigh Cholesterol: greater than 239 mg/dL LDL Cholesterol Calculated 11 <100 mg/dL [facility] Comment:Desirable LDL: less than 100 mg/dLNear Optimal/Above Optimal LDL: 110- 129 mg/dLBorderline High LDL: 130-159 mg/dLHigh LDL: 160-189 mg/dLVery High LDL: greater than or equal to 190 mg/dL HDL Cholesterol 65 >40 mg/dL [facility] Comment:Desirable HDL: great er than 40 mg/dL Note: This HDL assay may give artificially low results in patients with liver disease. Blood Venous blood specimen / Unknown 10/25/2024 9:18 AM EDT 10/25/2024 11:37 AM EDT us Mickey Coyle MD LAB BLOOD ORDERABLES Final Resul t Performing Organization Address [facility]/ZIP Co de Phone Number [facility] [address] [place] [phone] * (ABNORMAL) Comprehensive Metabolic Panel (10/25/2024 9:18 AM EDT) Sodium 142 135 - 145 mmol/L [facility] Potassium 3.6 3.3 - 5.1 mmol/L [facility] Chloride 103 96 - 108 mmol/L [facility] Carbon Dioxide 28 22 - 29 mmol/L [facility] Anion Gap 15 12 - 20 [facility] Urea Nitrogen (BUN) 10 9 - 16 mg/dL [facility] Creatinine, Serum 0.77 0.5 - 1.4 mg/dL [facility] Estimated Glomerular Filt Rate >60 [facility] Comment:Chronic Kidney Disea se: Estimated GFR < 60 mL/min/1.62e5Pnthwb Kidney Disease: Estimated GFR < 15 mL/min/1.73m2 Glucose 98 60 - 115 mg/dL [facility] Calcium 8.2(L) 8.4 - 10.2 mg/dL [facility] Bilirubin, Total 1.1(H) 0.0 - 1.0 mg/dL [facility] Aspartate Amino Transferase 129(H) 5 - 37 U/L [facility] Alanine Aminotransferase 43(H) 0 - 40 U/L [facility] Total Protein 6.9 6.5 - 8.0 g/dL [facility] Albumin Level 3.3(L) 3.5 - 5.0 g/dL [facility] Alkaline Phosphatase 90 39 - 117 U/L [facility] Blood Venous blood specimen / Unknown 10/25/2024 9:18 AM EDT 10/25/2024 11:37 AM EDT us Mickey Name LAB BLOOD ORDERABLES Final Resul t [facility] [address] [place], [place] [phone] from Last 3 Months Insurance [employer] Care Teams Pocket Cutter Relationship Specialty Start Date End Date Name, MD Mickey [address] [place] [address] PCP - General Internal Medicine 10/24/24
[2024-12-17 11:16] VITALS: BMI 21.5
[2024-12-19 09:43] LABS: Amphetamine Screen Urine Not Detected (Not Detect); Barbiturates, Urine Not Detected (Not Detect); Benzodiazepines Screen Urine Not Detected (Not Detect); Buprenorphine Scr Not Detected (Not Detect); Cannabinoid Screen Urine Not Detected (Not Detect); Cocaine Screen Urine Not Detected (Not Detect); Fentanyl, urine Not Detected (Not Detect); Methadone Screen, Urine Not Detected (Not Detect); Opiate Screen Urine Not Detected (Not Detect); Oxycodone Screen Urine Not Detected (Not Detect); Phencyclidine Screen Urine Not Detected (Not Detect)
[2024-12-19 10:03] VITALS: BP 124/59; PULSE 70; RESP 14; TEMP 36.6; O2SAT 100; BMI 20.6
[2024-12-19] MEDS: Lactated Ringers 1,000 ML 100 ML IVCONT (10:29)
--- NOTE | 2024-12-19 11:59 | HO.ANESPROP2 ---
Documented by User: Linsey Salgado NP 12/17/24 15:04 HPI - Anesthesia Eval Consult details Narrative: 59yo M for Left Breast Lumpectomy PMFSH Active Problems Active Problems: All Active Problems Left breast mass (Acute) Hepatitis C (Acute) Gynecomastia (Acute) Past Medical History Medical History Heroin abuse Depression Hepatitis C Gynecomastia Surgical History Surgical History Hx of colonoscopy (~2019) Social History Social History Are you a primary care technician to a significant other at home: No Do you presently have visiting nurse or other home services: No Patient Tobacco Use Status: Former Tobacco user Use of substances other than those prescribed or required for medical reasons: No Have you been hit, kicked, punched, or otherwise hurt by someone within the past year? If so, by whom?: No Are you DNR?: No Advance Directives: No Advance Directives Information Provided: Yes Poor oral hygiene: Yes Meds Allergies Allergy/AdvReac Type Severity Reaction Status Date / Time No Known Allergies Allergy Unverified 11/01/24 13:42 Home Medications ?Medication ?Instructions ?Recorded ?Confirmed ?Last Taken ?Type No Known Home Meds 11/01/24 11/01/24 Unknown History Exam Height,Weight and Vital Signs: Height 5 ft 11 in Weight 69.91 kg Pertinent Lab Results Pertinent Lab Results: Laboratory Tests 10/25/24 09:18 WBC 4.2 L Hgb 13.2 L Hct 36.8 L Plt Count 204 Sodium 142 Potassium 3.6 Chloride 103 Carbon Dioxide 28 BUN 10 Creatinine 0.77 Assessment and Plan Assessment Anesthesia Assessment: Chart Reviewed Documented by User: Lois Marroquin DO 12/19/24 12:01 PMFSH Past Medical History Medical History Heroin abuse Depression Hepatitis C Gynecomastia Family History Family history of problems with anesthesia: No Surgical History Surgical History Hx of colonoscopy (~2019) History of Problems with Anesthesia: No (never had GA) Social History Social History Are you a primary care technician to a significant other at home: No Do you presently have visiting nurse or other home services: No Patient Tobacco Use Status: Former Tobacco user Use of substances other than those prescribed or required for medical reasons: No Have you been hit, kicked, punched, or otherwise hurt by someone within the past year? If so, by whom?: No Are you DNR?: No Advance Directives: No Advance Directives Information Provided: Yes Poor oral hygiene: Yes Meds Allergies Allergy/AdvReac Type Severity Reaction Status Date / Time No Known Allergies Allergy Unverified 11/01/24 13:42 Home Medications ?Medication ?Instructions ?Recorded ?Confirmed ?Last Taken ?Type No Known Home Meds 11/01/24 11/01/24 Unknown History Exam Exam Date and Time: 12/19/24 1200 Height,Weight and Vital Signs: Height 5 ft 11 in Weight 69.91 kg Height 5 ft 11 in Weight 67 kg Vital Signs Temperature 97.8 F 12/19/24 10:03 Pulse Rate 70 12/19/24 10:03 Respiratory Rate 14 12/19/24 10:03 Blood Pressure 124/59 L 12/19/24 10:03 Pulse Oximetry 100 12/19/24 10:03 Oxygen Delivery Method Room Air 12/19/24 10:03 Temperature 97.8 F 12/19/24 10:03 Pulse Rate 70 12/19/24 10:03 Respiratory Rate 14 12/19/24 10:03 Blood Pressure 124/59 L 12/19/24 10:03 Pulse Oximetry 100 12/19/24 10:03 Oxygen Delivery Method Room Air 12/19/24 10:03 Airway Mallampati Class: II TM Dist: >3cm Neck ROM: Full Loose/Missing/Broken Teeth: Yes (edentulous top jaw) Heart: S1S2 Lungs: CTAB Assessment and Plan Assessment Anesthesia Assessment: Anesthesia Plan Discussed and Chart Reviewed Final Anesthetic Review Family History of Problems with Anesthesia: No History of Problems with Anesthesia: No (never had GA) NPO: Yes ASA Class: II Final Preanesthetic Review: No Changes in Pt Med Stat, Meds/Allgs Chart Reviewed, Consent Obtained/Reviewed and Anes Risks/Benef Reviewed Patient Risk: Low Procedure Risk: Low Anesthetic Plan Anesthetic Plan: GA and Agree w/ Assess. and Plan Disposition: Standard PACU
--- NOTE | 2024-12-19 12:09 | MHC.SHP ---
Pre-Procedural Eval Section A - 24 Hr Update-Section A only Date of Service: 12/19/24 The patient is an INPATIENT: No Changes since office visit: Yes Patient answered all questions; No Cold of Flu in the past 2 weeks, No New Medical Problems and No Changes in Medication The patient has been examined within 24 hours of the surgical procedure. The History & Physical has been completed within 30 days and I have reviewed it.: No Section B - Complete if H&P > 30 days Chief Complaint: Unspecified lump in the left breast, overlapping Details of Present Illness: No change in patient's symptoms, continues to feel a lump. Mammogram and ultrasound suggestive of gynecomastia. Relevant Family History (Specify if Yes): No Relevant Social History: None Present Medications: see Short Stay Collaborative assessment Medical History: Significant History (Hepatitis-C) History of Previous Operations: No relevant previous surgery Allergies: Allergies Allergy/AdvReac Type Severity Reaction Status Date / Time No Known Allergies Allergy Unverified 11/01/24 13:42 Review of Systems Sugical H&P ROS: Negative: Constitution, Cardiovascular, Respiratory, Neurological, Psychiatric, Hem-Onc, Allergic/Immunologic, Gastrointestinal, Genitourinary, Musculoskeletal, Integumentary, Endocrine and Eyes/Ears/Nose/Throat Exam Surgical H&P Exam: Normal: HEENT, Normal: Heart, Normal: Lungs, Normal: Extremities, Normal: Abdomen, Normal: Skin and Normal: Neurological Plan Diagnosis/Plan: Unchanged I have reviewed the history and physical and performed a pertinent physical examination on my patient. No changes have occurred unless specified. Time Spent With Patient Time: Total time managing care of this patient today ____ minutes.
--- NOTE | 2024-12-19 13:00 | P.OP_ITS ---
Operative Note Operative Note Date of Service: 12/19/24 Narrative: Preoperative diagnosis: Left breast lump, gynecomastia Postoperative diagnosis: Same Procedure: Left breast lumpectomy Surgeon: Amaury Porter MD Aviation Maintenance Technician: Carlos Whiting PA-C Anesthesia: General LMA Indications for procedure: 59-year-old male patient presenting with a palpable mass in the left breast at the upper outer quadrant. Mammogram and ultrasound are suggestive of gynecomastia. He presents today for lumpectomy. Operative findings: Approximately 4 cm breast lump in the left breast in the upper outer quadrant suggestive of gynecomastia Specimen: Left breast lump Estimated blood loss: 5 mL Complications: None Procedure details: Patient was brought to the OR and placed in a supine position. After administering general anesthesia the patient's breast was prepped with ChloraPrep and draped in a sterile fashion. A surgical time-out was called the consent confirmed. Patient received preoperative antibiotics and Venodyne boots were in place. Local anesthesia consisting of 0.5% Sensorcaine with epinephrine was then infiltrated in a curvilinear fashion in the upper outer quadrant of the left breast. A curvilinear incision was then made just above the areola and carried out through subcutaneous tissue. Superior and inferior skin flaps were then created using electrocautery. Allis clamp was then used to grasped with the palpable lump. A core of tissue surrounding this palpable lump was then a obtained using the electrocautery. The specimen was passed off the table and sent to pathology for further examination. Upon palpation additional palpable mass was noted more medial this was also grasped with an Allis clamp and excised using electrocautery. This was also added to the specimen and sent to pathology. Wounds were irrigated with saline solution and suctioned dry. Hemostasis was assured using electrocautery. Deep breast tissue was then reapproximated using interrupted 3-0 Polysorb sutures. Dermis was reapproximated using interrupted 3-0 Polysorb sutures. Skin was then closed using a running subcuticular 4-0 Polysorb suture. Sterile dressings consisting of Steri-Strips, 4 x 4 gauze and Tegaderm were then applied. The patient tolerated the procedure well. Sponge, instrument, and needle counts reported as correct. The patient was transferred to PACU in stable condition.
[2024-12-19 13:06] VITALS: BP 89/56; PULSE 65; RESP 16; TEMP 36.3; O2SAT 98
[2024-12-19 13:11] VITALS: BP 102/56; PULSE 79; RESP 16; O2SAT 99
[2024-12-19 13:16] VITALS: BP 99/58; PULSE 96; RESP 16; O2SAT 98
[2024-12-19 13:21] VITALS: BP 104/63; PULSE 90; RESP 16; O2SAT 96
[2024-12-19 13:36] VITALS: BP 109/67; PULSE 75; RESP 16; TEMP 36.3; O2SAT 97
== END 2024-12-19 13:55 | disposition home or self-care (01) ==
PROVIDERS: Nurse Practitioner; PCP Internal Medicine Geriatric Medicine; Visit Provider Surgery
PROC: (CPT 19301; principal; 2024-12-19 12:20)
DX: N62 Hypertrophy of breast (principal); N63.25 Unspecified lump in the left breast, overlapping quadrants; B19.20 Unspecified viral hepatitis C without hepatic coma; F11.10 Opioid abuse, uncomplicated; F32.A Depression, unspecified; Z79.899 Other long term (current) drug therapy
CPT/HCPCS: 19301; 80307; 88307; J0690; J1100; J1885; J2003; J2250; J2371; J2405; J2704; J3010

== ENCOUNTER → 2024-12-19 08:12 | Outpatient (BNV) | payer MEDICAID, SELFPAY | PROVIDERS: PCP Internal Medicine Geriatric Medicine; Visit Provider Surgery | DX: N62 Hypertrophy of breast (principal) | CPT/HCPCS: 19300 ==

== ENCOUNTER 2024-12-28 10:07 | Outpatient (AMB) | payer MEDICAID, SELFPAY ==
--- NOTE | 2024-12-28 10:13 | MHC.OFFVIS ---
Vital Signs 12/28/24 10:24 Height 5 ft 11 in Weight 152 lb 8 oz BMI 21.3 BP 113/72 Blood Pressure Location Lt brachial Position Sitting Pulse 88 Intake Visit Reasons: S/P Lt breast lumpectomy Intake Note: Patient is seen in office for post op assessment post left breast lumpectomy. Pt c/o: feels a lump in the area, denies redness, discharge or other concerns sx:12/19/24 Developer [employer] Required: No Accompanied by: Other Relationship Allergies No Known Allergies Allergy (Unverified 12/28/24 10:23) HPI Comments Details: 59-year-old male patient presenting for evaluation of left breast enlargement. He reports being on medication for a prolonged period of time for his stomach which he feels resulted in the left breast enlargement. He has some discomfort associated with this enlargement as well and denies any symptoms in the right breast. He denies any redness or discharge from the skin. He underwent excision of the left breast mass on 12/19/2024. Pathology revealed changes consistent with gynecomastia. He tolerated the procedure well and denies any ongoing symptoms other than some mild incisional pain. [facility] Medical History Heroin abuse Depression Hepatitis C Gynecomastia Surgical History History of lumpectomy of left breast (12/19/24) Hx of colonoscopy (~2018) Social History Are you a primary intensive care ambulance paramedic to a significant other at home: No Do you presently have visiting nurse or other home services: No Patient Tobacco Use Status: Former Tobacco user Physical Exam Const General: healthy appearing Nutritional Appearance: well nourished Orientation/consciousness: patient oriented x3 Chest Other: Well-healed incision in the left chest without redness or discharge. Resp Effort & Inspection: normal respiratory effort Skin Other: Warm, dry without rash Neuro General: patient oriented x3 Assessment & Plan Assessment & Plan (1) Gynecomastia: Code(s): N62 - Hypertrophy of breast Category: Medical Plan: 59-year-old male patient returning 1 week following excision of a gynecomastia mass left chest. He tolerated the procedure well and his wounds are healing nicely. He should follow up as needed. Coding Level of Care Code Global (38049) Diagnoses Gynecomastia N62
[2024-12-28 10:24] VITALS: BP 113/72; PULSE 88; BMI 21.3
--- OUTSIDE RECORDS SUMMARY | 2024-12-28 10:55 | XMS_ITS | Encounter Summary ---
Author Organization [employer] Address [address] [place] [address] Care Team Providers Care Academic Hospitalist Name Role Phone Name, Mickey ANGUIANO Primary Care Provider [phone] Encounter Details Date Type Department Care Team (Late st Contact Info) Description 12/25/2024 Telephone [facility] [address] [place], [place] [phone] Brianna Bui, ISAC [address] [place] [address] Social History Tobacco Use Types Packs/Day Years [...] AM EDT documented as of this encounter Miscellaneous Notes * Telephone Encounter - Brianna Bui RN - 12/25/2024 10:32 AM EDT RN called pt to schedule Hep C MD Intake after missing last visit. No answer, unable to LVM. Pleaseattempt to reach out to pt for Hep C appt. Thank you documented in this encounter Plan of Treatment Upcoming Encounters Date Type Department Care Team (Late st Contact Info) Description 02/26/2025 9:00 AM EDT Office Visit [facility] [address] [place] [address] Korin Dumont, OD [address] [place] [address] documented as of this encounter Visit Diagnoses Not on filedocumented in this encounter Additional Health Concerns Assessment Noted Time PHQ-9 Depression Total Score: 24 025 9:51 AM EDT documented as of this encounter Care Teams Academic Hospitalist Relationship Specialty Start Date End Date Name, MD Mickey [address] [place] [address] PCP - General Internal Medicine 10/24/24 documented as of this encounter
== END 2024-12-28 10:40 | disposition home or self-care (01) ==
LOC: HO.HGS 10:07
PROVIDERS: PCP Internal Medicine Geriatric Medicine; Visit Provider Surgery
DX: N62 Hypertrophy of breast (principal)
CPT/HCPCS: 99024

== ENCOUNTER → 2024-12-28 10:07 | Outpatient (BNVA) | payer MEDICAID, SELFPAY | PROVIDERS: PCP Internal Medicine Geriatric Medicine; Visit Provider Surgery | DX: N62 Hypertrophy of breast (principal) | CPT/HCPCS: 99212 ==

== ENCOUNTER 2025-03-19 13:34 | Outpatient (AMB) | payer MEDICAID, SELFPAY ==
--- NOTE | 2025-03-19 14:04 | A.OFFVIS_ITS ---
Vital Signs 03/19/25 14:21 Height 5 ft 11 in Weight 152 lb 1.903 oz BMI 21.2 BP 110/65 Blood Pressure Location Lt brachial Position Sitting Pulse 75 Intake Visit Reasons: Lump in chest is back/bigger Intake Note: Patient is seen in office for evaluation of a lump in the chest. Pt c/o: lump was removed a month ago, never healed and is bigger now, painful, denies discharge Hansard Reporter Required: No Accompanied by: Self / Same As Patient Allergies No Known Allergies Allergy (Unverified 12/28/24 10:23) HPI Comments Details: 59-year-old male patient presenting for evaluation of a possible recurrent lump in the left breast. He recently underwent left breast lumpectomy for gynecomastia. He feels that this has filled up in his not sure if there was fluid or a recurrent lump. [facility]LY [facility] Medical History Heroin abuse Depression Hepatitis C Gynecomastia Surgical History History of lumpectomy of left breast (12/19/24) Hx of colonoscopy (~2019) Social History Are you a primary child care center administrator to a significant other at home: No Do you presently have visiting nurse or other home services: No Patient Tobacco Use Status: Former Tobacco user Review of Systems Const All systems reviewed & are unremarkable except as noted in HPI and below Physical Exam Vital Signs: Last Vital Signs Pulse 75 03/19/25 14:21 BP 110/65 03/19/25 14:21 BMI result Body Mass Index 21.2 Const General: comfortable Nutritional Appearance: well nourished Orientation/consciousness: patient oriented x3 Chest Other: Bilateral flabby chest right greater than left. Well-healed incision in the upper mid breast. Small amount of palpable scar tissue but no definite hematoma or seroma appreciated. Patient pointed to soft tissue medial breast which appears consistent with fatty tissue. Neuro General: patient oriented x3 Assessment & Plan Assessment & Plan (1) Gynecomastia: Code(s): N62 - Hypertrophy of breast Category: Medical Plan No evidence of recurrent gynecomastia to my examination. I recommended further evaluation with an ultrasound to examined for possible seroma.. Patient will return following the study to review the results and discuss treatment options. Orders: Orders US breast LT limited Today N62 - Hypertrophy of breast Coding Level of Care Code Global (47673) Diagnoses Gynecomastia N62
[2025-03-19 14:21] VITALS: BP 110/65; PULSE 75; BMI 21.2
--- OUTSIDE RECORDS SUMMARY | 2025-03-19 14:52 | XMS_ITS | Clinical Summary ---
Author Organization [employer] Address [address] [facility] [address] [place] [address] Care Team Providers Care Mine Analyst Name Role Phone Name, Mickey ANGUIANO Primary Care Provider [phone] Allergies No known active allergies Medications * This document contains information received from the source organization and may not represent a complete record from that organization. Multiple Vitamins-Iron (Daily Mely Multivitamin/Ir on) tablet One tab po daily 90 tablet 3 10/31/2024 Active folic acid (Folvite) 1 MG tablet Take 1 tab po dialy 90 tablet 3 10/31/2024 Active Glecaprevir-Pib rentasvir (Mavyret) 100-40 MG tablet Take 3 tablets by mouth Once per day. 84 tablet 1 12/31/2024 Active Active Problems Problem Noted Date Diagnosed Date Gynecomastia 10/24/2024 Overview (10/24/2024): Check testosterone levels, mammogram, referral to breast surgeon Encounters Date Type Department Care Team Description 02/26/2025 9:00 AM EDT Office Visit [facility] [address] [place] [address] Korin Dumont, OD Presbyopia (Primary Dx); Corneal scars, both eyes 02/26/2025 Travel 02/22/2025 Refill [facility] [address] [place], [place] [phone] Amelia Jones MD 01/09/2025 Telephone [facility] [address] [place], [place] [phone] Wicho Hogan, Awais 01/09/2025 Telephone [facility] [address] [place], [place] [phone] Brianna Bui RN 12/31/2024 1:30 PM EDT Office Visit [facility] [address] [facility] [place] [address] Amelia Jones MD Chronic hepatitis C without hepatic coma (CMS/HCC) (Primary Dx) 12/31/2024 Travel 12/28/2024 Telephone [facility] [place] [address] Brianna Bui, ISAC 12/25/2024 Telephone [facility] [address] [facility] [place] [address] Brianna Bui, ISAC 12/21/2024 Telephone [facility] [address] [facility] [place] [address] CandisAmanda Chourdes 12/20/2024 Telephone [facility] [address] [facility] [place] [address] Mickey Coyle MD Chart Prep 12/19/2024 Orders Only GENERIC EXTERNAL DATA DEPARTMENT Provider, Generic External Data from Last 3 Months Immunizations Immunization Administration Dates Next Due Pneumococcal Conjugate PCV 20 10/24/2024 Td (adult), 5 Lf tetanus tox oid, preservative free, adsorbed 04/01/2017 Tdap 10/24/2024 Family History Medical History Relation Name Comments Diabetes Father Hypertension Father Relation Name Status Comments Father Social History Tobacco Use Types Packs/Day Years [...] Sign Reading Time Taken Comments Blood Pressure 136/83 12/31/2024 2:01 PM EDT Pulse 89 12/31/2024 2:01 PM EDT Temperature 36.3 C (97.4 F) 12/31/2024 2:01 PM EDT Respiratory Rate 18 10/24/2024 9:03 AM EDT Oxygen Saturation 98% 10/24/2024 9:03 AM EDT Inhaled Oxygen Concentration - - Weight 71.7 kg (158 lb) 12/31/2024 2:01 PM EDT Height 180.3 cm (5' 11 ) 10/24/2024 9:03 AM EDT Body Mass Index 22.04 10/24/2024 9:03 AM EDT Plan of Treatment Health Maintenance Due Date Last Done Comments [...] season) 2024 02/02/2021, 01/05/2021 Influenza Vaccine (#1) 2025 Depression Monitoring 04/25/2025 10/24/2024 , 10/24/2024 Alcohol/Substance Use Screening 10/24/2025 10/24/2024 Disability Screening 10/24/2025 10/24/2024 SDOH Screening 10/24/2025 10/24/2024 Tobacco Screening 02/26/2026 02/26/2025 Lipid Panel 10/25/2029 10/25/2024 DTaP/Tdap/Td Vaccines (2 [...] Procedure Name Priority Date/Time Associated Diagnosis Comments GROSS AND MICROSCOPIC LEVEL 5 Routine 12/19/2024 12:43 PM EDT DRUG MONITOR, PANEL 1, SCREEN, URINE Routine 12/19/2024 9:10 AM EDT HIV 1/2 ANTIGEN/ANTIBODY, FOURTH GENERATION W/RFL Routine 10/25/2024 9:18 AM EDT Gynecomastia History of heroin abuse (CMS/HCC) History of hepatitis C Low libido LIPID PANEL, STANDARD Routine 10/25/2024 9:18 AM EDT Screening for cholesterol level from Last 3 Months or Most Recently Relevant to Health Maintenance Results * Gross and Microscopic Level 5 (12/19/2024 12:43 PM EDT) 12/19/2024 12:4 3 PM EDT 12/19/2024 1:10 PM EDT [facility] - 12/20/2024 3:57 PM EDT ----- ------- Name: Odilon Wilde Age/Sex: 59/M : 1965 Unit#: [id number] Attend Dr: Amaury Porter MD Re12/19/24 Status: [facility] Location: [facility] Disch: ----- ------- SPEC : [id number] RECD: 12/19/24 STATUS: YUKO MORAN NUM: [id number] LAST: 12/19/24-12[address] [facility] [address]: Amaury Porter MD ENTERED: 12/19/24-1322 SP TYPE: Surgical OTHR DR: Mickey Coyle MD ORDERED: Gross Micro L5 Diagnosis Left breast, upper outer quadrant, lumpectomy: Changes consistent with gynecomastia. Clinical History Left breast mass Microscopic Description Microscopic sections reviewed. Material Received Left breast lumpectomy Gross Description Received in formalin labeled left breast lumpectomy are two portions of focally cauterized, post-yellow and murillo-white lobular fibrofatty breast tissue measuring 6.0 x 4.5 x 0.5-2.0 cm and 5.5 x 4.0 x 1.5 cm. No sutures are present to orient the specimen. The margins are inked and each portion of tissue is sectioned to reveal predominantly homogeneous post-yellow lobular fat with focally dense, rubbery, murillo-white fibrous breast tissue. No distinct cysts, nodules or pasty foci are identified. Forming And Assembling Supervisor sections are submitted in cassettes A1-A7. [facility] IHC S/NG Disclaimer NOTE: Unless otherwise stated, all tissue is formalin-fixed and paraffin-embedded. Some or all of the immunohistochemical tests reported herein may have been developed and their performance characteristics determined by [facility]. They have not been cleared or approved by the U.S. Food and Drug Administration (FDA). However, the FDA has determined that such clearance or approval is not necessary. This laboratory is certified under the Clinical Laboratory Improvement Amendments of 1988 (CLIA) as qualified to perform high complexity clinical laboratory testing. Copies To: Amaury Porter MD [facility] [address] [place] [id number] CONTINUED ON NEXT PAGE ----- ------- Name: Odilon Wilde Age/Sex: 59/M : 1965 Unit#: [id number] Attend Dr: Amaury Porter MD Re12/19/24 Status: [facility] Location: [facility] Disch: ----- ------- SPEC : [id number] RECD: 12/19/24 STATUS: YUKO MORAN NUM: [id number] LAST: 12/19/24-[address] [facility] [address]: Amaury Porter MD ENTERED: 12/19/24-1321 SP TYPE: Surgical OTHR DR: Mickey Coyle MD ORDERED: Gross Micro L5 Copies To: (Continued) Mickey Coyle MD [address] [place] [address] ----- ------- Signed (signature on file) Teodora Vyas MD 12/20/24 1557 ----- ------- END OF REPORT Generic External Data Provider LAB BLOOD ORDERAB LES Final Result [facility] [address] [place] [phone] * Drug Monitoring, Panel 1, Screen, Urine (12/19/2024 9:10 AM EDT) Opiate Screen Urine Not Detected Not Detect [facility] Comment:Opiate cut-off is 30 0 ng/mL.Positive results are unconfirmed and should not be used fornon-medical purposes. Barbiturates, Urine Not Detected Not Detect [facility] Comment:Barbiturate cut-off is 200 ng/mL.Positive results are unconfirmed and should not be used fornon-medical purposes. Phencyclidine Screen Urine Not Detected Not Detect [facility] Comment:Phencyclidine cut-of f is 25 ng/mL.Positive results are unconfirmed and should not be used fornon-medical purposes. Amphetamine Screen Urine Not Detected Not Detect [facility] Comment:Amphetamine cut-off is 1000 ng/mL.Positive results are unconfirmed and should not be used fornon-medical purposes. Benzodiazepines Screen Urine Not Detected Not Detect [facility] Comment:Benzodiazepine cut-o ff is 200 ng/mL.Positive results are unconfirmed and should not be used fornon-medical purposes. Cocaine Screen Urine Not Detected Not Detect [facility] Comment:Cocaine cut-off is 3 00 ng/mL.Positive results are unconfirmed and should not be used fornon-medical purposes. Cannabinoid Screen Urine Not Detected Not Detect [facility] Comment:Cannabinoid cut-off is 50 ng/mL.Positive results are unconfirmed and should not be used fornon-medical purposes. Methadone Screen, Urine Not Detected Not Detect ng/mL [facility] Comment:Methadone cut-off is 300 ng/mL.Positive results are unconfirmed and should not be used fornon-medical purposes. FENTANYL URINE Not Detected Not Detect [facility] Comment:Fentanyl cut-off is 1 ng/mL.Positive results are unconfirmed and should not be used fornon-medical purposes. Oxycodone Urine Screen Not Detected Not Detect ng/mL [facility] Comment:Oxycodone cut-off is 100 ng/mL.Positive results are unconfirmed and should not be used fornon-medical purposes. Buprenorphine Screen Not Detected Not Detect ng/mL [facility] Comment:Buprenorphine cut-of f is 5 ng/mL.Positive results are unconfirmed and should not be used fornon-medical purposes. 12/19/2024 9:10 AM EDT 12/19/2024 9:24 AM EDT us Generic External Data Provider LAB URINE ORDERAB LES Final Result [facility] [address] [place] [phone] * HIV-1/2 Antigen and Antibodies, Fourth Generation, with Reflexes (10/25/2024 9:18 AM EDT) HIV AB/AG Nonreactive Nonreactive [facility] Comment:HIV-1 p24 Ag and/or HIV-1/HIV-2 Ab not detected.A test result that is nonreactive does not exclude thepossibility of exposure to or infection with HIV-1 and/orHIV-2. Nonreactive results in this assay for individualswith prior exposure to HIV-1 and/or HIV-2 may be due toantigen and antibody levels that are below the limit ofdetection of this assay.The [employer] HIV Ag/Ab Combo assay result andsupplemental assay results should be interpreted inconjunction with the patient's clinical presentation,history and other laboratory results. If the results areinconsistent with clinical evidence, additional testing issuggested to confirm the result. Blood Venous blood specimen / Unknown 10/25/2024 9:18 AM EDT 10/25/2024 11:37 AM EDT us Mickey Coyle MD LAB BLOOD ORDERABLES Final Resul t [facility] [address] [place] [phone] * (ABNORMAL) Lipid Panel, Standard (10/25/2024 9:18 AM EDT) Triglycerides 305(H) <150 mg/dL [facility] Comment:Desirable Triglyceri de: less than 150 mg/dLBorderline High Triglyceride 150-199 mg/dLHigh Triglyceride: 200-499 mg/dLVery High Triglyceride: greater than or equal to 5OO mg/dL Cholesterol 137 <200 mg/dL [facility] Comment:Desirable Cholestero l: less than 200 mg/dLBorderline High Cholesterol: 200-239 mg/dLHigh Cholesterol: greater than 239 mg/dL LDL Cholesterol Calculated 11 <100 mg/dL [facility] Comment:Desirable LDL: less than 100 mg/dLNear Optimal/Above Optimal LDL: 110- 129 mg/dLBorderline High LDL: 130-159 mg/dLHigh LDL: 160-189 mg/dLVery High LDL: greater than or equal to 190 mg/dL HDL Cholesterol 65 >40 mg/dL [facility] Comment:Desirable HDL: great er than 40 mg/dL Note: This HDL assay may give artificially low results in patients with liver disease. Blood Venous blood specimen / Unknown 10/25/2024 9:18 AM EDT 10/25/2024 11:37 AM EDT us Mickey Name LAB BLOOD ORDERABLES Final Resul t [facility] [address] [place] [address] [phone] from Last 3 Months or Most Recently Relevant to Health Maintenance Insurance [facility] C3 Care Teams Mine Analyst Relationship Specialty Start Date End Date Name, MD Mickey [address] [place] [address] PCP - General Internal Medicine 10/24/24
== END 2025-03-19 14:10 | disposition home or self-care (01) ==
LOC: HO.HGS 13:35
PROVIDERS: PCP Internal Medicine Geriatric Medicine; Visit Provider Surgery
DX: N62 Hypertrophy of breast (principal)
CPT/HCPCS: 99024

== ENCOUNTER → 2025-03-19 13:34 | Outpatient (BNVA) | payer MEDICAID, SELFPAY | PROVIDERS: PCP Internal Medicine Geriatric Medicine; Visit Provider Surgery | DX: N62 Hypertrophy of breast (principal) | CPT/HCPCS: 99212 ==

== ENCOUNTER 2025-03-30 10:07 | Inpatient (IN) | payer MEDICAID, SELFPAY ==
[2025-03-30] VITALS (23 sets, daily range): BP systolic 69–122; BP diastolic 47–82; PULSE 105–127; RESP 18–35; TEMP 36.4–37.1; O2SAT 88–99; BMI 21.8
--- NOTE | ~2025-03-30 | XR_ITS ---
CLINICAL HISTORY: [facility] OG 1 view chest x-ray Comparison: 03/30/2025 Findings: Portions of the exam are obscured by overlying material. There is increase in diffuse consolidation with possible bilateral pleural effusions. Endotracheal tube is 2.3 cm above the kiesha. The exam is otherwise unchanged. IMPRESSION: 1. Increased diffuse consolidation with bilateral pleural effusions. This document has been electronically signed by: Mychal Adams MD on 03/31/2025 03:42:24
--- NOTE | ~2025-03-30 | XR_ITS ---
CLINICAL HISTORY: CV[facility] 1 view chest x-ray Comparison: None provided Findings: Prominence of the pulmonary vasculature. Right internal jugular approach central venous catheter with tip within the right atrium. Cardiomegaly. No acute fracture. IMPRESSION: 1. Cardiomegaly with mild volume overload. 2. Right internal jugular central venous catheter with tip in the right atrium. This document has been electronically signed by: Quinten Gannon MD on 03/30/2025 23:10:04
--- NOTE | ~2025-03-30 | CT_ITS ---
CLINICAL HISTORY: flank pain, concern for obstruction CT abdomen and pelvis with contrast Comparison: None provided Findings: The lung bases are clear. Hepatic steatosis. Right perinephric stranding with homogeneous bilateral corticomedullary enhancement. Segmental mural thickening of the predominantly ascending and transverse colon involvement of the sigmoid colon. Moderate paraesophageal hernia with a proximally half of the stomach in the retrocardiac position. The appendix not grossly identified. Small amount of ascites. Bowens catheter in bladder. The bones are intact. IMPRESSION: 1. Segmental mural thickening of ascending, transverse, and sigmoid colon; infectious colitis suspected. 2. Right perinephric stranding; sequela of right lower quadrant mesenteric panniculitis versus right bacterial pyelonephritis. 3. Moderate paraesophageal hernia with proximal half of stomach in retrocardiac position. 4. [id number] amount of ascites. 5. Hepatic steatosis. This document has been electronically signed by: Quinten Gannon MD on 03/30/2025 14:13:14
--- NOTE | ~2025-03-30 | XR_ITS ---
CLINICAL HISTORY: abd pain, looking for perf --- Additional Notes or Special Instructions: busy-2026 1 view abdomen Comparison: CT/SR - CT ABDOMEN PELVIS W IV CON - 03/30/25 13:35 EDT Findings: No pneumoperitoneum or pneumatosis. No abnormal calcifications. No acute fractures. Contrast in the renal collecting system and bladder. Bowens catheter present. Note: The kidneys demonstrate hyperattenuation from retain contrast. IMPRESSION: 1. The kidneys demonstrate hyperattenuation from retained IV contrast, persistent nephrogram, IV contrast initially administered on 03/30/2025 at 1:39 p.m.; ATN versus systemic hypotension. Clinical correlation suggested. This document has been electronically signed by: Quinten Gannon MD on 03/30/2025 21:00:02
--- OUTSIDE RECORDS SUMMARY | 2025-03-30 10:56 | XMS_ITS | Clinical Summary ---
Author Organization [employer] Address [address] [facility] [address] [place] [address] Care Team Providers Care Cancer Researcher Name Role Phone Name, Mickey ANGUIANO Primary Care Provider [phone] Allergies No known active allergies Medications * [...] Description 02/26/2025 9:00 AM EDT Office Visit [facility] [address] [place] [address] Korin Dumont, OD Presbyopia (Primary Dx); Corneal scars, both eyes 02/26/2025 Travel 02/22/2025 Refill [facility] [address] [place], [place] [phone] Amelia Jones MD 01/09/2025 Telephone [facility] [address] [place], [place] [phone] Wicho Hogan, Awais 01/09/2025 Telephone [facility] [address] [place], [place] [phone] Brianna Bui RN 12/31/2024 1:30 PM EDT Office Visit [facility] [address] [place] [address] Amelia Jones MD Chronic hepatitis C without hepatic coma (CMS/HCC) (Primary Dx) 12/31/2024 Travel 12/28/2024 Telephone [facility] [address] [place] [address] Brianna Bui RN from Last 3 Months Immunizations Immunization Administration [...] of 2) 2017 COVID-19 Vaccine ( - 2024-2 6 season) 2025 02/02/2021, 01/05/2021 Influenza Vaccine (#1) 2025 Depression [...] Procedure Name Priority Date/Time Associated Diagnosis Comments HIV 1/2 ANTIGEN/ANTIBODY, FOURTH GENERATION W/RFL Routine 10/25/2024 9:18 AM EDT Gynecomastia History of heroin abuse ([facility]) History of hepatitis C Low libido LIPID PANEL, STANDARD Routine 10/25/2024 9:18 AM EDT Screening for cholesterol level from Last 3 Months or Most Recently Relevant to Health Maintenance Results * HIV-1/2 Antigen and Antibodies, Fourth Generation, with Reflexes (10/25/2024 9:18 AM EDT) Pathologist [facility] HIV AB/AG Nonreactive Nonreactive [facility] Comment:HIV-1 p24 Ag and/or HIV-1/HIV-2 Ab not detected.A test result that is nonreactive does not exclude thepossibility of exposure to or infection with HIV-1 and/orHIV-2. Nonreactive results in this assay for individualswith prior exposure to HIV-1 and/or HIV-2 may be due toantigen and antibody levels that are below the limit ofdetection of this assay.The [employer] HIV Ag/Ab Combo assay result andsupplemental assay results should be interpreted inconjunction with the patient's clinical presentation,history and other laboratory results. If the results areinconsistent with clinical evidence, additional testing issuggested to confirm the result. Blood Venous blood specimen / Unknown 10/25/2024 9:18 AM EDT 10/25/2024 11:37 AM EDT us Mickey Coyle MD LAB BLOOD ORDERABLES Final Resul t Performing Organization Address [facility] de Phone Number [facility] [address] [place] [phone] * (ABNORMAL) Lipid Panel, Standard (10/25/2024 9:18 AM EDT) Triglycerides 305(H) <150 mg/dL [facility] Comment:Desirable Triglyceri de: less than 150 mg/dLBorderline High Triglyceride 150-199 mg/dLHigh Triglyceride: 200-499 mg/dLVery High Triglyceride: greater than or equal to 5OO mg/dL Cholesterol 137 <200 mg/dL [facility] Comment:Desirable Cholestero l: less than 200 mg/dLBorderline High Cholesterol: 200-239 mg/dLHigh Cholesterol: greater than 239 mg/dL LDL Cholesterol Calculated 11 <100 mg/dL [facility] Comment:Desirable LDL: less than 100 mg/dLNear Optimal/Above Optimal LDL: 110- 129 mg/dLBorderline High LDL: 130-159 mg/dLHigh LDL: 160-189 mg/dLVery High LDL: greater than or equal to 190 mg/dL HDL Cholesterol 65 >40 mg/dL [facility] Comment:Desirable HDL: great er than 40 mg/dL Note: This HDL assay may give artificially low results in patients with liver disease. Blood Venous blood specimen / Unknown 10/25/2024 9:18 AM EDT 10/25/2024 11:37 AM EDT us Mickey Coyle MD LAB BLOOD ORDERABLES Final Resul t Performing Organization Address [facility] Co de Phone Number [facility] [address] [place] [phone] from Last 3 Months or Most Recently Relevant to Health Maintenance Insurance [facility] C3 Care Teams Cancer Researcher Relationship Specialty Start Date End Date Name, MD Mickey [address] [place] [address] KRISTINA Collins [id number] PCP - General Internal Medicine 10/24/24
--- NOTE | 2025-03-30 11:13 | ED_ITS ---
HPI - Male Genitourinary General Chief complaint: Urogenital-Male Stated complaint: kindey infection Time Seen by Provider: 03/30/25 11:13 Source: patient Mode of arrival: ambulatory Limitations: no limitations History of Present Illness ED Provider: NESHA Lancaster-C HPI Narrative: Patient is a 59 year old assigned male at with a history of hepatitis C, depression, heroin use, and gynecomastia presenting to the emergency department with right flank pain and abdominal fullness. Patient reports the pain is constant and feels like a kidney infection . Patient reports subjective fever at home, nausea, vomiting, and inability to tolerate PO intake. Patient states that his urine output has been decreased and he feels like he is retaining urine, but denies any hematuria. Patient states that he just feels generally unwell. Related Data Home Medications ?Medication ?Instructions ?Recorded ?Confirmed No Known Home Meds 03/30/25 03/30/25 Allergies Allergy/AdvReac Type Severity Reaction Status Date / Time No Known Allergies Allergy Verified 03/30/25 10:12 Review of Systems 2 Constitutional: Constitutional: Reports as per HPI Eyes: Eyes: Reports as per HPI ENT: Reports as per HPI Cardiovascular: Cardiovascular: Reports as per HPI Respiratory: Respiratory: Reports as per HPI Gastrointestinal: Gastrointestinal: Reports as per HPI Genitourinary: Genitourinary: Reports as per HPI Musculoskeletal: Musculoskeletal: Reports as per HPI Integumentary/Breasts: Skin/Breast: Reports as per HPI Neurologic: Reports as per HPI Psychiatric: Psychiatric: Reports as per HPI Endocrine: Endocrine: Reports as per HPI Hematologic/Lymphatic: Hematologic/Lymphatic: Reports as per HPI Allergic/Immunologic: Allergic/Immunologic: Reports as per HPI [facility] Past Medical History Attestation statement: The following information was validated with the patient. Source: old records reviewed and nursing notes reviewed Medical History Heroin abuse Depression Hepatitis C Gynecomastia Surgical History History of lumpectomy of left breast (12/19/24) Hx of colonoscopy (~2018) Social History Social History Household Members: Unknown / Unable to assess Housing: Unknown / Unable to assess Are you a primary hearing healthcare practitioner to a significant other at home: No Do you presently have visiting nurse or other home services: No Patient Tobacco Use Status: Former Tobacco user Smoked in Last 30 Days: No Patient Interested in Nicotine Replacement: No Patient Given Instructions on How to Stop Smoking: No Second Hand Smoke Exposure: No Use of substances other than those prescribed or required for medical reasons: No Currently Displaying Signs/Symptoms of Drug Intoxication Withdrawal: No Have you been hit, kicked, punched, or otherwise hurt by someone within the past year? If so, by whom?: No Do you feel safe in your current relationship?: No Is there a partner from a previous relationship who is making you feel unsafe now?: No Are you made to feel afraid or neglected: No Advance Directives: No Advance Directives Information Provided: No Do you have a plan to hurt others: No Plan Recently lost weight without trying: No Eating poorly because of decreased appetite: No Nutrition Risks: No Nutritional Risk Poor oral hygiene: No Physical Exam 2 Vital Signs: Vital Signs: Last Vital Signs Temp 100.6 F H 03/31/25 21:00 Pulse 122 H 03/31/25 21:02 Resp 27 H 03/31/25 21:00 BP 108/77 03/31/25 21:02 Pulse Ox 100 03/31/25 21:00 O2 Del Method Mechanical Ventil ation 03/31/25 21:00 O2 Flow Rate 12 03/31/25 02:00 FiO2 50 03/31/25 21:00 BMI result Body Mass Index 21.8 Const: General: cooperative, no acute distress, alert and awake Nutritional Appearance: well nourished Orientation/consciousness: patient oriented x3 HEENT: Head: Yes normal to inspection and Yes atraumatic Ears: hearing grossly normal bilaterally and external ears normal General nose exam: Normal external nose present, no nasal discharge noted and no epistaxis Face and sinus: Yes normal facial exam, No abrasion and No laceration Mouth: Normal oral and palatal mucosa present, no drooling and no muffled voice Eyes: General: appearance normal, both eyes and all related structures P eriorbital: periorbital findings normal Eyelids: Yes eyelids normal C onjunctivae: conjunctivae normal Pupils: Equal, round and reactive pupils present EOM: EOMs intact bilaterally Neck: Neck: Yes normal visual inspection and Yes full ROM Resp: Effort & Inspection: normal respiratory effort and able to speak in complete sentences GI: Inspection: Yes distended Palpation (GI): Firmness to palpation present (GI) Skin: General skin exam: jaundice Neuro: General: patient oriented x3, moves all extremities and CN's II-XI intact bilaterally Cranial nerves: Yes Equal, round and reactive pupils present Cognition (Neuro): normal cognition Extrem: General: Yes normal to inspection, Yes full ROM and Yes capillary refill normal Psych: Appearance: grossly normal Mental Status: mental status grossly normal Affect: normal affect Attitude: cooperative Thought process: N ormal thought process present Thought content: Normal thought content present Insight: Good insight present (Psych) Medications Administered Generic Name Dose Route Start Last Admin Trade Name Freq PRN Reason Stop Dose Admin Chlorhexidine Gluconate 15 ml 03/31/25 08:00 03/31/25 21:25 Chlorhexidine Gluc Oral Rinse 15 Ml Mouthwash BUCCAL 15 ml TID LORI Administration Norepinephrine Bitartrate 8 mg in 250 mls @ 0 mls/hr 03/30/25 19:30 03/31/25 21:02 Levophed IVCONT 0.46 mcg/kg/min .Q0M LORI 61.07 mls/hr Protocol Administration Per Protocol Sodium Bicarbonate 150 meq/ 1,000 mls @ 100 mls/hr 03/30/25 20:00 03/31/25 21:17 Dextrose IV 100 mls/hr .Q10H LORI Administration Vasopressin 20 unit in 100 mls @ 12 mls/hr 03/30/25 21:30 03/31/25 15:36 Vasostrict IVCONT 0.04 unit/min .Q8H20M LORI 12 mls/hr Protocol Administration 0.04 UNIT/MIN Piperacillin Sod/Tazobactam 100 mls @ 200 mls/hr 03/31/25 06:00 03/31/25 18:16 Sod 3.375 gm/ Sodium Chloride IV Infused Q6H LORI Infusion Thiamine HCl 100 mg/ Sodium 101 mls @ 202 mls/hr 03/31/25 09:00 03/31/25 09:32 Chloride IV Infused DAILY LORI Infusion Folic Acid 1 mg/ Sodium 50.2 mls @ 100.4 mls/hr 03/31/25 09:00 03/31/25 10:41 Chloride IV Infused DAILY LORI Infusion Propofol 1,000 mg in 100 mls @ 0 mls/hr 03/31/25 03:00 03/31/25 20:06 Diprivan IVCONT 20 mcg/kg/min .Q0M LORI 8.5 mls/hr Protocol Titration Per Protocol Pantoprazole Sodium 40 mg 03/31/25 06:30 03/31/25 07:23 Pantoprazole Sodium 40 Mg/10 Ml Vial IVPUSH 40 mg DAILY@0630 LORI Administration Discontinued Medications Generic Name Dose Route Start Last Admin Trade Name Liliane PRN Reason Stop Dose Admin Bumetanide 1 mg 03/31/25 07:30 03/31/25 07:52 Bumetanide 1 Mg/4 Ml Vial IVPUSH 03/31/25 07:31 1 mg ONCE ONE Administration Protocol Ceftriaxone Sodium 2 gm 03/30/25 14:04 03/30/25 14:52 Ceftriaxone Sodium 2 Gm Vial IVPUSH 03/30/25 14:05 2 gm ONCE ONE Administration Dextrose 25 gm 03/30/25 21:07 03/30/25 21:25 Dextrose 50 % 25 Gm/50 Ml Syringe IVPUSH 03/30/25 21:08 25 gm ONCE ONE Administration Hydrocortisone Sodium Succinate 100 mg 03/31/25 01:44 03/31/25 02:43 Hydrocortisone Sod Succ/Pf 100 Mg Vial IVPUSH 03/31/25 01:45 100 mg ONCE ONE Administration Hydromorphone HCl 0.5 mg 03/30/25 14:04 03/30/25 14:35 Hydromorphone Hcl 0.5 Mg/0.5 Ml Syringe IVPUSH 03/30/25 14:05 0.5 mg ONCE ONE Administration Protocol Hydromorphone HCl 0.5 mg 03/31/25 00:44 03/31/25 01:14 Hydromorphone Hcl 0.5 Mg/0.5 Ml Syringe IVPUSH 03/31/25 00:45 0.5 mg ONCE ONE Administration Protocol Albumin Human 100 mls @ 133.333 mls/hr 03/30/25 12:30 03/30/25 15:40 Kedbumin 25 % IV 03/30/25 14:14 Infused Q1H LORI Infusion Magnesium Sulfate 2 gm in 50 mls @ 25 mls/hr 03/30/25 13:38 03/30/25 16:40 Magnesium Sulfate/H2o IV 03/30/25 15:37 Infused ONCE ONE Infusion Sodium Chloride 1,000 mls @ 999 mls/hr 03/30/25 14:15 03/30/25 17:22 Ns IV 03/30/25 15:15 Infused .Q1H1M LORI Infusion Sodium Chloride 1,000 mls @ 999 mls/hr 03/30/25 15:30 03/30/25 17:23 Ns IV 03/30/25 16:30 Infused .Q1H1M LORI Infusion Sodium Chloride 1,000 mls @ 999 mls/hr 03/30/25 19:15 03/31/25 06:55 Ns IV 03/30/25 20:15 Infused .Q1H1M LORI Infusion Albumin Human 100 mls @ 133.333 mls/hr 03/30/25 19:30 03/30/25 20:31 Kedbumin 25 % IV 03/30/25 21:14 Infused Q1H LORI Infusion Piperacillin Sod/Tazobactam 100 mls @ 200 mls/hr 03/30/25 20:00 03/31/25 00:10 Sod 4.5 gm/ Sodium Chloride IV Infused Q8H LORI Infusion Magnesium Sulfate 2 gm in 50 mls @ 25 mls/hr 03/30/25 19:30 03/30/25 23:47 Magnesium Sulfate/H2o IV 03/30/25 21:29 Infused ONCE ONE Infusion Lactated Ringer's 2,124 mls @ 2,124 mls/hr 03/30/25 19:32 03/30/25 23:27 Lr 30 ml/kg infuse over 1 hr (2124 ml) 03/30/25 20:31 Infused IV Infusion .Q1H ONE Dexmedetomidine HCl 400 mcg in 100 mls @ 0 mls/hr 03/30/25 19:45 03/31/25 00:45 Precedex IVCONT Infused .Q0M LORI Titration Protocol Per Protocol Albumin Human 100 mls @ 133.333 mls/hr 03/30/25 21:45 03/30/25 22:50 Kedbumin 25 % IV 03/30/25 23:29 Infused Q1H LORI Infusion Potassium Chloride 40 meq in 100 mls @ 100 mls/hr 03/30/25 22:32 03/31/25 00:40 Potassium Chloride/H20 IV 03/30/25 23:31 Infused ONCE ONE Infusion Acetylcysteine 15,000 mg/ 275 mls @ 200 mls/hr 03/31/25 01:43 03/31/25 05:10 Dextrose IV 03/31/25 03:05 Infused ONCE ONE Infusion Potassium Chloride 40 meq in 100 mls @ 100 mls/hr 03/31/25 07:30 03/31/25 08:51 Potassium Chloride/H20 IV 03/31/25 08:29 Infused ONCE ONE Infusion Albumin Human 100 mls @ 133.333 mls/hr 03/31/25 07:30 03/31/25 09:49 Kedbumin 25 % IV 03/31/25 09:14 Infused Q1H LORI Infusion Calcium Gluconate 1 gm in 50 mls @ 50 mls/hr 03/31/25 08:00 03/31/25 09:33 Calcium Gluconate IV 03/31/25 08:59 Infused ONCE ONE Infusion Albumin Human 100 mls @ 133.333 mls/hr 03/31/25 15:30 03/31/25 17:26 Kedbumin 25 % IV 03/31/25 17:14 Infused Q1H LORI Infusion Fluconazole 400 mg in 200 mls @ 100 mls/hr 03/31/25 16:00 03/31/25 18:17 Diflucan IV 03/31/25 17:59 Infused ONCE ONE Infusion Iohexol 100 ml 03/30/25 13:46 03/30/25 13:46 Iohexol 350 Mg/Ml 100 Ml Infus..Btl IV 03/30/25 13:47 85 ml ONCE ONE Administration Lidocaine HCl 15 ml 03/30/25 14:25 03/30/25 14:40 Lidocaine Hcl 1 % Mpf 5 Ml Vial SUBCUT 03/30/25 14:26 15 ml ONCE ONE Administration Morphine Sulfate 4 mg 03/30/25 11:35 03/30/25 11:52 Morphine Sulfate 4 Mg/Ml Cartridge IVPUSH 03/30/25 11:36 4 mg ONCE ONE Administration Protocol Ondansetron HCl 4 mg 03/30/25 11:35 03/30/25 11:53 Ondansetron Hcl 4 Mg/2 Ml Vial IVPUSH 03/30/25 11:36 4 mg ONCE ONE Administration Phenobarbital Sodium 283 mg 03/30/25 17:00 03/30/25 17:24 Phenobarbital Sodium 130 Mg/Ml Im Once IM 03/30/25 17:01 283 mg ONCE ONE Administration Phenobarbital Sodium 212 mg 03/30/25 20:00 03/31/25 03:23 Phenobarbital Sodium 130 Mg/Ml Vial Im Q3hx2 IM 03/30/25 23:01 Not Given Q3H LORI Propofol 100 mg 03/31/25 02:52 03/31/25 03:21 Propofol 200 Mg/20 Ml Vial IVPUSH 03/31/25 02:53 100 mg ONCE ONE Administration Rocuronium [place] 30 mg 03/31/25 02:52 03/31/25 02:37 Rocuronium [place] 50 Mg/5 Ml Vial IVPUSH 03/31/25 02:53 30 mg ONCE ONE Administration Sodium Bicarbonate 100 meq 03/30/25 19:51 03/30/25 20:35 Sodium Bicarbonate 8.4% 50 Meq/50 Ml Syringe IVPUSH 03/30/25 19:52 100 meq ONCE ONE Administration Sodium Bicarbonate 100 meq 03/31/25 00:45 03/31/25 01:13 Sodium Bicarbonate 8.4% 50 Meq/50 Ml Syringe IVPUSH 03/31/25 00:46 100 meq ONCE ONE Administration Sodium Bicarbonate 100 meq 03/31/25 02:52 03/31/25 02:41 Sodium Bicarbonate 8.4% 50 Meq/50 Ml Syringe IVPUSH 03/31/25 02:53 100 meq ONCE ONE Administration Sodium Bicarbonate 100 meq 03/31/25 06:47 03/31/25 07:44 Sodium Bicarbonate 8.4% 50 Meq/50 Ml Syringe IVPUSH 03/31/25 06:48 100 meq ONCE ONE Administration Medical Decision Making Medical Decision Making MDM Narrative: Patient is a 59 year old assigned male at with a history of hepatitis C, heroin use, gynecomastia, alcohol use / abuse (at least 15 nips per day) and previous tobacco use presenting to the emergency department today with multiple complaints including abdominal distension, abdominal fullness, fatigue, flank pain, vomiting, nausea, and decreased urination. Patient's physical exam showed a tachycardic and jaundiced individual with a distended and somewhat firm abdomen. Patient's blood work showed hgb of 11.7, hct 31.4, plt 119, an anion gap of 23, mag of 1.3, T bili 6.0, direct bili 2.0, AST 86, albumin 2.5, initial lactic of 15.9 Patient's urine showed positive nitrites with 0-5 WBC + bacteria Patient's CT abd/pelvis with IV contrast showed: Segmental mural thickening of ascending + transverse + sigmoid colon consistent with infectious colitis Right perinephric stranding concerning for right lower quadrant mesenteric panniculitis vs. right pyelonephritis Moderate paraoesophageal hernia with proximal half of stomach in retrocardiac position, [id number] ascites Hepatic steatosis The nurse assigned to the patient performed a bed side bladder scan and determined the patient had 600mls of urine in the bladder. Based on this finding, she placed a lynn catheter that got very little urine output. After the lynn catheter was placed, I was informed by the nurse that the newly placed catheter was not draining appropriately and she was concerned based on the 600ml of urine in the bladder she thought she had seen on the previously performed bladder scan. The lynn was irrigated and confirmed to be in the bladder. I explained to the nurse that what she was seeing on the bladder scan was likely ascites and not urine. Patient's lynn catheter is likely not draining much because the patient is dehydrated and does not have urine to drain. Given patient's clinical exam findings and work up - I was suspicious for SBP at 1404. Patient was given 2 grams of IV ceftriaxone and I consulted with my attending physician, Dr. Celso Esteban. At that time, my attending physician, Dr. Celso Esteban, performed an ultrasound guided diagnostic paracentesis. Patient's paracentesis showed WBC count of 2.68 and 95 neutrophils. Patient was given IV magnesium. Patient was given 2 liters of normal saline and 2 bags of albumin. Patient became tremulous and I began to have concern of alcohol withdrawal at 1657. At that time, the patient was started on a phenobarbital protocol. Given the patient's possible SBP, colitis, and hypomagnesemia - I attempted to admit the patient to the hospitalist team. At that time, they declined stating they'd prefer to wait on accepting the admisison until there is evidence of a downtrending lactic acid level. I explained to the team that his lactic acid is likely elevated due to his poor liver function however, I agreed to repat the patient's level. Repeat lactic acid level was 16.1. I spoke with the hospitalist team again who requested the patient be presented to the ICU / salesforce developer team. At that time, I was alerted the patient was hypotensive at 79/48. I was suspicious of the patient being septic at 1913. I spoke with the salesforce developer, Dr. Villalobos, and his SG Bharath, who agreed to admission to the intensive care unit. I explained my physical exam findings as well as all test results to the patient and the patient's sister. I answered all questions asked by the patient and the patient's sister. Patient and the patient's sister verbalized agreement and understanding with this treatment plan and admission to the ICU. Differential Diagnosis Differential Diagnoses: The differential diagnosis associated with the presentation includes Liver failure SBP Hypomagnesemia Admission/Observation Consideration of admission/observation: Escalation of care including admission/observation considered Patient admitted as noted in the MDM Rationale portion of this note. Consult Healthcare Provider Management of the patient was discussed with: Hospitalist (declined admission as noted in the MDM Rationale portion of this note. ) and [place] Mechanic (consulted with the salesforce developer who ultimately agreed to admission as noted in the MDM Rationale portion of this note. ) Lab Data [facility] Lab Attestation statement: I reviewed the patient's lab results. My interpretation of these results are in the MDM Rationale portion of this note. 03/31/25 11:06 03/31/25 18:09 Labs: Lab Results 03/30/25 03/30/25 03/30/25 Range/Units 11:33 12:15 13:11 WBC 5.0 (4.8-10.8) X10*3/uL RBC 2.97 L (4.60-5.80) X10*6/uL Hgb 11.7 L (14.0-18.0) g/dl Hct 31.4 L (42.0-52.0) % MCV 105.7 H (80.0-98.0) fL MCH 39.4 H (27.0-33.0) pg MCHC 37.3 H (31.0-36.0) g/dl RDW 15.9 (11.0-16.0) % Plt Count 119 L D (160-400) X10*3/uL MPV 10.7 (9.4-12.4) fL Immature Gran % (Auto) 0.6 H (0.0-0.4) % Neut % (Auto) 86.0 H (45-73) % Lymph % (Auto) 6.5 L (20-40) % [place] % (Auto) 6.7 (2-11) % Eos % (Auto) 0.0 (0-4) % Baso % (Auto) 0.2 (0-2) % Lymph # (Auto) 0.3 L (1.2-4.9) X10*3/uL [place] # (Auto) 0.3 (0.1-1.2) X10*3/uL Eos # (Auto) 0.0 (0.0-0.4) X10*3/uL Baso # (Auto) 0.0 (0.0-0.2) X10*3/uL Abs Immat Gran (auto) 0.03 (0.00-0.03) X10*3/uL Absolute Neuts (auto) 4.3 (2.0-8.3) x10*3/uL Absolute Nucleated RBC 0.000 (0.0-0.012) X10*3/uL Nucleated RBC % (auto) 0.0 (0.0-0.2) /100WBC Sodium 138 (135-145) mmol/L Potassium 3.4 (3.3-5.1) mmol/L Chloride 97 (96-108) mmol/L Carbon Dioxide 21 L (22-29) mmol/L Anion Gap 23 H (12-20) BUN 9 (9-16) mg/dL Creatinine 0.99 (0.5-1.4) mg/dL Estim Creat Clear Calc 82.4 Estimated GFR > 60 Random Glucose 80 (60-115) mg/dL Lactic Acid (0.5-2.0) mmol/L Lactic Acid F/U @ 2Hr (0.5-2.0) mmol/L Calcium 8.9 D (8.4-10.2) mg/dL Magnesium 1.3 L* (1.6-2.6) mg/dL Total Bilirubin 6.0 H (0.0-1.0) mg/dL Direct Bilirubin 2.0 H (0.0-0.5) mg/dL AST 86 H (5-37) U/L ALT 22 (0-40) U/L Alkaline Phosphatase 82 (39-117) U/L Lactate Dehydrogenase (118-273) U/L Total Protein 5.8 L (6.5-8.0) g/dL Albumin 2.5 L (3.5-5.0) g/dL Amylase 47 (28-100) U/L Lipase 12 (8-78) U/L Urine Color DK YELLOW Urine Appearance Hazy Urine pH 5.5 (5.0-9.0) Ur Specific [place] >= 1.030 H (1.005-1.025) Urine Protein 100 (2+) H (Neg-Trace) mg/dL Urine Glucose (UA) 250 H (Negative) mg/dL Urine Ketones 15 (Negative) mg/dL Urine Blood Trace (Negative) Urine Nitrite Positive H (Negative) Ur Leukocyte Esterase Negative (Negative) Urine RBC 0-2 (0-2) /HPF Urine WBC 0-5 (0-5) /HPF Ur Squamous Epith Cells 3-5 (0-2) /HPF Urine Bacteria Trace (None Seen) Hyaline Casts 3-5 (0-2) /LPF Peritoneal WBC X10*3/uL Peritoneal RBC X10*6/uL Periton Neutrophils % Periton Lymphocytes % Peritoneal Monocytes % 03/30/25 03/30/25 03/30/25 Range/Units 14:35 14:54 15:25 WBC (4.8-10.8) X10*3/uL RBC (4.60-5.80) X10*6/uL Hgb (14.0-18.0) g/dl Hct (42.0-52.0) % MCV (80.0-98.0) fL MCH (27.0-33.0) pg MCHC (31.0-36.0) g/dl RDW (11.0-16.0) % Plt Count (160-400) X10*3/uL MPV (9.4-12.4) fL Immature Gran % (Auto) (0.0-0.4) % Neut % (Auto) (45-73) % Lymph % (Auto) (20-40) % [place] % (Auto) (2-11) % Eos % (Auto) (0-4) % Baso % (Auto) (0-2) % Lymph # (Auto) (1.2-4.9) X10*3/uL [place] # (Auto) (0.1-1.2) X10*3/uL Eos # (Auto) (0.0-0.4) X10*3/uL Baso # (Auto) (0.0-0.2) X10*3/uL Abs Immat Gran (auto) (0.00-0.03) X10*3/uL Absolute Neuts (auto) (2.0-8.3) x10*3/uL Absolute Nucleated RBC (0.0-0.012) X10*3/uL Nucleated RBC % (auto) (0.0-0.2) /100WBC Sodium (135-145) mmol/L Potassium (3.3-5.1) mmol/L Chloride (96-108) mmol/L Carbon Dioxide (22-29) mmol/L Anion Gap (12-20) BUN (9-16) mg/dL Creatinine (0.5-1.4) mg/dL Estim Creat Clear Calc Estimated GFR Random Glucose (60-115) mg/dL Lactic Acid 15.9 H* (0.5-2.0) mmol/L Lactic Acid F/U @ 2Hr (0.5-2.0) mmol/L Calcium (8.4-10.2) mg/dL Magnesium (1.6-2.6) mg/dL Total Bilirubin (0.0-1.0) mg/dL Direct Bilirubin (0.0-0.5) mg/dL AST (5-37) U/L ALT (0-40) U/L Alkaline Phosphatase (39-117) U/L Lactate Dehydrogenase 239 (118-273) U/L Total Protein (6.5-8.0) g/dL Albumin (3.5-5.0) g/dL Amylase (28-100) U/L Lipase (8-78) U/L Urine Color Urine Appearance Urine pH (5.0-9.0) Ur Specific [place] (1.005-1.025) Urine Protein (Neg-Trace) mg/dL Urine Glucose (UA) (Negative) mg/dL Urine Ketones (Negative) mg/dL Urine Blood (Negative) Urine Nitrite (Negative) Ur Leukocyte Esterase (Negative) Urine RBC (0-2) /HPF Urine WBC (0-5) /HPF Ur Squamous Epith Cells (0-2) /HPF Urine Bacteria (None Seen) Hyaline Casts (0-2) /LPF Peritoneal WBC 2.688 X10*3/uL Peritoneal RBC < 0.002 X10*6/uL Periton Neutrophils 95 % Periton Lymphocytes 2 % Peritoneal Monocytes 3 % 03/30/25 Range/Units 17:29 WBC (4.8-10.8) X10*3/uL RBC (4.60-5.80) X10*6/uL Hgb (14.0-18.0) g/dl Hct (42.0-52.0) % MCV (80.0-98.0) fL MCH (27.0-33.0) pg MCHC (31.0-36.0) g/dl RDW (11.0-16.0) % Plt Count (160-400) X10*3/uL MPV (9.4-12.4) fL Immature Gran % (Auto) (0.0-0.4) % Neut % (Auto) (45-73) % Lymph % (Auto) (20-40) % [place] % (Auto) (2-11) % Eos % (Auto) (0-4) % Baso % (Auto) (0-2) % Lymph # (Auto) (1.2-4.9) X10*3/uL [place] # (Auto) (0.1-1.2) X10*3/uL Eos # (Auto) (0.0-0.4) X10*3/uL Baso # (Auto) (0.0-0.2) X10*3/uL Abs Immat Gran (auto) (0.00-0.03) X10*3/uL Absolute Neuts (auto) (2.0-8.3) x10*3/uL Absolute Nucleated RBC (0.0-0.012) X10*3/uL Nucleated RBC % (auto) (0.0-0.2) /100WBC Sodium (135-145) mmol/L Potassium (3.3-5.1) mmol/L Chloride (96-108) mmol/L Carbon Dioxide (22-29) mmol/L Anion Gap (12-20) BUN (9-16) mg/dL Creatinine (0.5-1.4) mg/dL Estim Creat Clear Calc Estimated GFR Random Glucose (60-115) mg/dL Lactic Acid (0.5-2.0) mmol/L Lactic Acid F/U @ 2Hr 16.1 H* (0.5-2.0) mmol/L Calcium (8.4-10.2) mg/dL Magnesium (1.6-2.6) mg/dL Total Bilirubin (0.0-1.0) mg/dL Direct Bilirubin (0.0-0.5) mg/dL AST (5-37) U/L ALT (0-40) U/L Alkaline Phosphatase (39-117) U/L Lactate Dehydrogenase (118-273) U/L Total Protein (6.5-8.0) g/dL Albumin (3.5-5.0) g/dL Amylase (28-100) U/L Lipase (8-78) U/L Urine Color Urine Appearance Urine pH (5.0-9.0) Ur Specific [place] (1.005-1.025) Urine Protein (Neg-Trace) mg/dL Urine Glucose (UA) (Negative) mg/dL Urine Ketones (Negative) mg/dL Urine Blood (Negative) Urine Nitrite (Negative) Ur Leukocyte Esterase (Negative) Urine RBC (0-2) /HPF Urine WBC (0-5) /HPF Ur Squamous Epith Cells (0-2) /HPF Urine Bacteria (None Seen) Hyaline Casts (0-2) /LPF Peritoneal WBC X10*3/uL Peritoneal RBC X10*6/uL Periton Neutrophils % Periton Lymphocytes % Peritoneal Monocytes % Independent Interpretation I performed an independent interpretation of an: CT Scan Interpretation: My interpretation is in agreement with the radiologist's impression of this imaging study. L Reason for Exam: flank pain, concern for obstruction ADDENDUM This document has been electronically signed by: Quinten Gannon MD on 03/30/2025 14:13:14 ADDENDUM: This report was discussed with Rhonda Wilson MD on Mar 30, 2025 14:16:00 EDT. This document has been electronically signed by: Amy Graham on 03/30/2025 14:16:51 Addendum Dictated By:Quinten Gannon MD Addendum Signed By: Electronically signed by Quinten Gannon MD CLINICAL HISTORY: flank pain, concern for obstruction CT abdomen and pelvis with contrast Comparison: None provided Findings: The lung bases are clear. Hepatic steatosis. Right perinephric stranding with homogeneous bilateral corticomedullary enhancement. Segmental mural thickening of the predominantly ascending and transverse colon involvement of the sigmoid colon. Moderate paraesophageal hernia with a proximally half of the stomach in the retrocardiac position. The appendix not grossly identified. Small amount of ascites. Lynn catheter in bladder. The bones are intact. IMPRESSION: 1. Segmental mural thickening of ascending, transverse, and sigmoid colon; infectious colitis suspected. 2. Right perinephric stranding; sequela of right lower quadrant mesenteric panniculitis versus right bacterial pyelonephritis. 3. Moderate paraesophageal hernia with proximal half of stomach in retrocardiac position. 4. [id number] amount of ascites. 5. Hepatic steatosis. This document has been electronically signed by: Quinten Gannon MD on 03/30/2025 14:13:14 Dictated By: Quinten Gannon MD Signed By: Electronically signed by Quinten Gannon MD 03/30/25 1414 Radiology Impression Discussion of test interpretation with radiology: I have reviewed the radiologist's reading. Independent Historian Clinical information obtained from an independent historian. History obtained from or confirmed by: Other (Patient's sister provided additional history and confirmed the history provided by the patient. ) Procedures Procedure Narrative Procedure Narrative: Procedure: Paracentesis Performed by:Celso Esteban MD Indication: [Rule out SBP [place] Protocol: a time out was performed and the correct patient and site were verified Procedure: The ascitic fluid collection was identified by ultrasound. Local anesthesia with 5 ml 1% lidocaine infiltrated at site. The site was prepped with chlorhexidine and full barrier precautions were employed. Under sterile conditions, the patient was placed in the R decubitus position. 60ml of fluid description ascitic fluid was obtained. Samples were sent for appropriate studies. Post-Procedure Diagnosis: same as indication Complications: none Estimated Blood Loss: minimal Specimens Removed: as documented above Prosthetic devices/implants: no Caseworker Intake(s): none CPT: 00495 Paracentesis Time Out Performed: Yes Indication: possible spontaneous bacterial peritonitis Procedure: diagnostic paracentesis Location: RLQ Local Anesthetic: lidocaine 1% Bedside Ultrasound Used: yes, real-time guidance Preparation: sterile prep and drape Amount of fluid obtained (mL): 10 Fluid: cloudy and sent to lab for analysis Size of Needle Used: 18 Post Procedure Exam: awake, alert, normal BP, normal HR and normal SpO2 Patient Tolerated Procedure: well Complications: none Additional Comments: Performed by Dr. Celso Esteban Critical Care Time Critical Care Time Critical Care Time: Yes Total Critical Care Time: 77 Attestation: I spent 77 minutes of Critical Care Time with this patient. This does not include time spent on separately reported billable procedures. Discharge Plan Discharge Clinical Impression: Colitis, Tachycardia, Liver disease, Hypomagnesemia Sepsis Qualifiers: Sepsis type: sepsis due to unspecified organism Sepsis acute organ dysfunction status: unspecified Qualified Code(s): A41.9 - Sepsis, unspecified organism Patient Disposition: Admitted As Inpatient Discharge Date/Time: 03/30/25 20:19
--- NOTE | 2025-03-30 11:31 | PC.NURSE ---
16fr coude cath placed, little to no urine output noted, provider NESHA Wilson notified.
[2025-03-30 11:37] LABS: MANUAL DIFF FLAG NO
[2025-03-30 11:38] LABS: Hematocrit 31.4 % (42.0-52.0); Hemoglobin 11.7 g/dl (14.0-18.0); Imm Gran Abs Auto 0.03 X10*3/uL (0.00-0.03); Imm Gran Pct Auto 0.6 % (0.0-0.4); Lymphocytes Absolute Auto 0.3 X10*3/uL (1.2-4.9); Mean Corpuscular HGB Conc 37.3 g/dl (31.0-36.0); Mean Corpuscular Hemoglobin 39.4 pg (27.0-33.0); Mean Corpuscular Volume 105.7 fL (80.0-98.0); NRBC Abs Auto 0.000 X10*3/uL (0.0-0.012); NRBC Pct Auto 0.0 /100WBC (0.0-0.2); Platelet Count 119 X10*3/uL (160-400); Red Blood Count 2.97 X10*6/uL (4.60-5.80); White Blood Count 5.0 X10*3/uL (4.8-10.8)
[2025-03-30 12:47] LABS: Alanine Aminotransferase 22 U/L (0-40); Albumin Level 2.5 g/dL (3.5-5.0); Alkaline Phosphatase 82 U/L (39-117); Anion Gap 23 (12-20); Aspartate Amino Transferase 86 U/L (5-37); Blood Urea Nitrogen 9 mg/dL (9-16); Calcium 8.9 mg/dL (8.4-10.2); Carbon Dioxide 21 mmol/L (22-29); Chloride 97 mmol/L (96-108); Creatinine Clr Calc Pharmacy 82.4; Estimated Glomerular Filt Rate > 60; Potassium 3.4 mmol/L (3.3-5.1); Sodium 138 mmol/L (135-145); Total Protein 5.8 g/dL (6.5-8.0)
[2025-03-30] MEDS: Albumin Human 25 % 100 ML 133.33 ML IV ×6 (13:09→22:00)
[2025-03-30 13:18] LABS: Appearance Urine Hazy; Glucose Urine UA 250 mg/dL (Negative); PH 5.5 (5.0-9.0); Specific Gravity - Urine >= 1.030 (1.005-1.025); UMIC TRIGGER UACC YES
[2025-03-30 13:29] LABS: UACC Culture Trigger YES
[2025-03-30 13:32] LABS: Magnesium 1.3 mg/dL (1.6-2.6)
[2025-03-30] MEDS: iohexoL 350 MG/ML 100 ML INFUS..BTL IV (13:46)
[2025-03-30] MEDS: Magnesium Sulfate/H2O 2 GM/50 ML PIGGYBACK IV ×2 (14:32→21:47)
[2025-03-30] MEDS: Lidocaine HCl 1 % MPF 5 ML VIAL 15 ML SUBCUT (14:40)
[2025-03-30 14:45] LABS: Amylase 47 U/L (28-100); Lipase 12 U/L (8-78)
[2025-03-30 15:43] LABS: MN% 10.7 %; PMN% 89.3 %; WBC Peritoneal Fluid 2.688 X10*3/uL
--- NOTE | 2025-03-30 16:16 | PHA.MEDREC ---
Addendum entered by Adama Muhammad, PharmOwen 03/30/25 17:32: MED REC CHECKED BY [facility] Original Note: Pharmacy Consult ? Medication Reconciliation Pharmacy has completed the medication reconciliation.
[2025-03-30 16:18] LABS: BF Shift QC OK YES; Lymphocyte Peritoneal Fl 2 %; Monocytes Peritoneal Fl 3 %; Neutrophils Peritoneal Fluid 95 %
[2025-03-30 16:45] LABS: Reflex Lactate? Lactic Acid Added
[2025-03-30] MEDS: PHENobarbitaL sodium 130 MG/ML IM ONCE 283 MG IM (17:24)
[2025-03-30 18:01] LABS: ~Lactic Acid-LAB USE ONLY 16.1 mmol/L (0.5-2.0)
--- NOTE | 2025-03-30 19:03 | PC.NURSE ---
Called to room by tech, pt noted to be hypotensive, and c/o excruciating abd pain. Pt found moaning in pain, hospitalist via tigertext, pt to be evaluated by ICU
--- NOTE | 2025-03-30 19:21 | PC.NURSE ---
ICU here for eval. New orders received, pt to go to ICU
[2025-03-30 19:34] LABS: Reflex Lactate? 2 Y
--- NOTE | 2025-03-30 19:38 | P.HPCC_ITS ---
History of Present Illness Date of Service: 03/30/25 Attending physician on admission: Jose Villalobos Chief Complaint: Acute septic shock 59-year-old male with history depression, of alcoholism who drinks about 12 nips of hard alcohol daily, ex heroin user (clean for 10 years) who was diagnosed with hepatitis-C (genotypoe 1B) about 4 months ago when coming out of the [facility] but has not received treatment, gynecomastia and left breast mass lumpectomy in December 2024 ( no cancer). ? The patient presented to the ER with complaints of sudden fever, chills, abdominal pain right lower quadrant with some radiation to the left and to the right flank, rated 8/10 at its worst, nothing makes it better or worse, they do not think give medications to help with it.? He has not had the ability to eat properly as he feels nausea, vomiting, diarrhea admits to urinary retention, no hematuria, no melena or hematochezia.? He also admits having a diagnosis of hepatitis-C while in [facility] about 6 months ago but did not receive treatment. In the ER, he was initially hypotensive blood pressure 96/61, heart rate of 112 respiratory rate of 22, received IV fluids, his initial laboratories showed a white count of 5.0, H and H of 1131 respectively, platelets 105, sodium 138, potassium 3.4, chloride 97, carbon dioxide 21, anion gap 23, BUN 9, creatinine 0.99, lactic acid 15.9 subsequently going up to 16.1, magnesium 1.3, total bilirubin 6, direct bilirubin 2.0, HCT 86, ALT 22.? Urinalysis shows dark yellow urine with a pH of 1.03, protein more than 100, glucose 250, nitrites positive, trace bacteria and some epithelial cells.? Given the urinary retention and flank pain patient was started on Rocephin.? Subsequently scant amount of fluid was noted on CT of the abdomen and pelvis and a bedside ultrasound paracentesis for diagnostic purposes was performed by the ER physician.? Results are still pending.? Despite of IV fluids and albumin the patient became more hypotensive.? Upon seeing the patient was decided the patient is better suited for treatment in the emergency room.? Recommended to start Levophed right away and prior to transfer. Review of Systems 2 Review of Systems: As above, otherwise the patient denies any prior history of strokes, cold intolerance, migraine headaches, head trauma, no eyes, ears or nose problems, no problems swallowing or with phonation, no thyroid disease, denies any history of chest pain, palpitations, coronary disease, cough, sputum production, pneumonia, bronchitis, COPD or emphysema, immunocompromise state of any kind, no history of DVT or PE, fractures or extremity surgeries all other review of systems were reviewed and they were all negative. [facility] Past Medical History Medical History Heroin abuse Depression Hepatitis C Gynecomastia Surgical History Surgical History History of lumpectomy of left breast (12/19/24) Hx of colonoscopy (~2018) Social History Social History Household Members: Unknown / Unable to assess Housing: Unknown / Unable to assess Are you a primary career development facilitator to a significant other at home: No Do you presently have visiting nurse or other home services: No Patient Tobacco Use Status: Former Tobacco user Smoked in Last 30 Days: No Patient Interested in Nicotine Replacement: No Patient Given Instructions on How to Stop Smoking: No Second Hand Smoke Exposure: No Use of substances other than those prescribed or required for medical reasons: No Currently Displaying Signs/Symptoms of Drug Intoxication Withdrawal: No Have you been hit, kicked, punched, or otherwise hurt by someone within the past year? If so, by whom?: No Do you feel safe in your current relationship?: No Is there a partner from a previous relationship who is making you feel unsafe now?: No Are you made to feel afraid or neglected: No Advance Directives: No Advance Directives Information Provided: No Do you have a plan to hurt others: No Plan Recently lost weight without trying: No Eating poorly because of decreased appetite: No Nutrition Risks: No Nutritional Risk Poor oral hygiene: No Meds Allergies Allergy/AdvReac Type Severity Reaction Status Date / Time No Known Allergies Allergy Verified 03/30/25 10:12 Active Medications: Current Medications Albumin Human (Kedbumin 25 %) 100 mls @ 100 mls/hr IV Q6H [facility] Stop: 03/31/25 02:29 Norepinephrine Bitartrate (Levophed) 8 mg in 250 mls @ 0 mls/hr IVCONT .Q0M [facility]; Protocol Last Admin: 03/30/25 19:35 Dose: 0.05 mcg/kg/min, 6.64 mls/hr Albumin Human (Kedbumin 25 %) 100 mls @ 133.333 mls/hr IV Q1H [facility] Stop: 03/30/25 21:14 Piperacillin Sod/Tazobactam (Sod 4.5 gm/ Sodium Chloride) 100 mls @ 200 mls/hr IV Q8H [facility] Magnesium Sulfate (Magnesium Sulfate/H2o) 2 gm in 50 mls @ 25 mls/hr IV ONCE ONE Stop: 03/30/25 21:29 Lactated Ringer's (Lr) 2,124 mls @ 2,124 mls/hr 30 ml/kg infuse over 1 hr (2124 ml) IV .Q1H ONE Stop: 03/30/25 20:31 Dexmedetomidine HCl (Precedex) 400 mcg in 100 mls @ 0 mls/hr IVCONT .Q0M [facility]; Protocol Phenobarbital (Phenobarbital 15 Mg Tablet) 45 mg PO BID LORI Stop: 04/01/25 21:01 Phenobarbital (Phenobarbital 15 Mg Tablet) 15 mg PO BID [facility]I Stop: 04/03/25 21:01 Phenobarbital (Phenobarbital 15 Mg Tablet) 15 mg PO DAILY [facility] Stop: 04/05/25 09:01 Phenobarbital Sodium (Phenobarbital Sodium 130 Mg/Ml Vial Im Q3hx2) 212 mg IM Q3H [facility] Stop: 03/30/25 23:01 Home Medications ?Medication ?Instructions ?Recorded ?Confirmed ?Last Taken ?Type No Known Home Meds 03/30/25 03/30/25 Un known History Physical Exam 2 Vital Signs: Vital Signs: Last Vital Signs Temp 98.2 F 03/30/25 19:13 Pulse 116 H 03/30/25 19:35 Resp 22 H 03/30/25 19:13 BP 74/47 L 03/30/25 19:35 Pulse Ox 94 03/30/25 19:13 O2 Del Method Room Air 03/30/25 19:13 BMI result Body Mass Index 21.8 Sepsis exam done at 1920 pm General:? Alert oriented x3 in acute distress;in in pain, a bit shaky. No accessory muscle usage.? Following all commands. Skin:? Jaundice. Thin, Intact, no lesions, edema, erythema, clubbing or cyanosis.? No ulcers. HEENT:? Head is normocephalic, atraumatic, pupils equal. Slight icterus. Buccal mucosa is dry.? No cervical lymphadenopathy. Cardiac:? Clear S1-S2, tachtcardic 120 bpm. No murmur, rubs or gallops. Pulmonary:? Diminished lung sounds bilaterally fine expiratory wheezing bilaterally .? No crackles, rales or rhonchi. Abdomen:? Slightly Protuberant, positive bowel sounds in all 4 quadrants.? Soft, slight tenderness to palpation over the RLQ, no rebound or guarding. No CVA tenderness. Musculoskeletal:? Moving all 4 extremities upon request a major joints, there is no crepitus or tenderness.? The strength is 5/5 bilaterally and throughout all 4 extremities.? There 2+ leg edema bilateral up to mid tibia, no calf tenderness , no leg asymmetry.? Neurologic:? As above.? No focal deficits noted. Vascular:? 2+ pulses upper and lower extremities distally.? Less than 2nd capillary refill of fingers and toes bilaterally upper and lower extremities Results Labs 03/31/25 11:06 03/31/25 11:06 Labs: Laboratory Results - last 24 hr 03/30/25 03/30/25 03/30/25 11:33 12:15 13:11 MCV 105.7 H MCH 39.4 H MCHC 37.3 H RDW 15.9 Plt Count 119 L D MPV 10.7 Immature Gran % (Auto) 0.6 H Neut % (Auto) 86.0 H Lymph % (Auto) 6.5 L [place] % (Auto) 6.7 Eos % (Auto) 0.0 Baso % (Auto) 0.2 Lymph # (Auto) 0.3 L [place] # (Auto) 0.3 Eos # (Auto) 0.0 Baso # (Auto) 0.0 Abs Immat Gran (auto) 0.03 Absolute Neuts (auto) 4.3 Absolute Nucleated RBC 0.000 Nucleated RBC % (auto) 0.0 Anion Gap 23 H Estim Creat Clear Calc 82.4 Estimated GFR > 60 Random Glucose 80 Lactic Acid Lactic Acid F/U @ 2Hr Calcium 8.9 D Magnesium 1.3 L* Total Bilirubin 6.0 H Direct Bilirubin 2.0 H AST 86 H ALT 22 Alkaline Phosphatase 82 Lactate Dehydrogenase Total Protein 5.8 L Albumin 2.5 L Amylase 47 Lipase 12 Urine Color DK YELLOW Urine Appearance Hazy Urine pH 5.5 Ur Specific [place] >= 1.030 H Urine Protein 100 (2+) H Urine Glucose (UA) 250 H Urine Ketones 15 Urine Blood Trace Urine Nitrite Positive H Ur Leukocyte Esterase Negative Urine RBC 0-2 Urine WBC 0-5 Ur Squamous Epith Cells 3-5 Urine Bacteria Trace Hyaline Casts 3-5 Peritoneal WBC Peritoneal RBC Periton Neutrophils Periton Lymphocytes Peritoneal Monocytes 03/30/25 03/30/25 03/30/25 14:35 14:54 15:25 MCV MCH MCHC RDW Plt Count MPV Immature Gran % (Auto) Neut % (Auto) Lymph % (Auto) [place] % (Auto) Eos % (Auto) Baso % (Auto) Lymph # (Auto) [place] # (Auto) Eos # (Auto) Baso # (Auto) Abs Immat Gran (auto) Absolute Neuts (auto) Absolute Nucleated RBC Nucleated RBC % (auto) Anion Gap Estim Creat Clear Calc Estimated GFR Random Glucose Lactic Acid 15.9 H* Lactic Acid F/U @ 2Hr Calcium Magnesium Total Bilirubin Direct Bilirubin AST ALT Alkaline Phosphatase Lactate Dehydrogenase 239 Total Protein Albumin Amylase Lipase Urine Color Urine Appearance Urine pH Ur Specific [place] Urine Protein Urine Glucose (UA) Urine Ketones Urine Blood Urine Nitrite Ur Leukocyte Esterase Urine RBC Urine WBC Ur Squamous Epith Cells Urine Bacteria Hyaline Casts Peritoneal WBC 2.688 Peritoneal RBC < 0.002 Periton Neutrophils 95 Periton Lymphocytes 2 Peritoneal Monocytes 3 03/30/25 17:29 MCV MCH MCHC RDW Plt Count MPV Immature Gran % (Auto) Neut % (Auto) Lymph % (Auto) [place] % (Auto) Eos % (Auto) Baso % (Auto) Lymph # (Auto) [place] # (Auto) Eos # (Auto) Baso # (Auto) Abs Immat Gran (auto) Absolute Neuts (auto) Absolute Nucleated RBC Nucleated RBC % (auto) Anion Gap Estim Creat Clear Calc Estimated GFR Random Glucose Lactic Acid Lactic Acid F/U @ 2Hr 16.1 H* Calcium Magnesium Total Bilirubin Direct Bilirubin AST ALT Alkaline Phosphatase Lactate Dehydrogenase Total Protein Albumin Amylase Lipase Urine Color Urine Appearance Urine pH Ur Specific [place] Urine Protein Urine Glucose (UA) Urine Ketones Urine Blood Urine Nitrite Ur Leukocyte Esterase Urine RBC Urine WBC Ur Squamous Epith Cells Urine Bacteria Hyaline Casts Peritoneal WBC Peritoneal RBC Periton Neutrophils Periton Lymphocytes Peritoneal Monocytes Assessment and Plan (1) Sepsis with acute liver failure and septic shock: Status: Acute Plan ASSESSMENT : 1. Acute septic shock in the setting of Acute pyelonephritis 2. Acute hepatitis likely shock liver syndrome/ superimpossed to untreated hep C 3. Acute metabolic acidosis 4. Acute lactic acidosis 5. Chronic microcytic anemia likely bone marrow suppression 6. Illness related thrombocytopenia 7. Acute hypomagnesemia 8. Hypoalbuminemia 9. Glucosuria and proteinuria 10. Alcohol abuse with mild signs of withdrawal 11. Acute kidney injury likely ATN, constrast induced neprhopathy and hypoperfusion 12. Acute hypokalemia 13. Acute hypoglycemia PLAN OF CARE: The patient was then admitted to the ICU, monitor vital signs, I's and O's, who received 30 mL/kilos of IV fluids followed by albumin salt and we will start him on Levophed.? Central line will be placed once the consent is obtained from the patient.? Start him on Zosyn, sodium bicarb push followed by a drip, replace electrolytes, insulin sliding scale.? GI consult. ?Follow up on peritoneal fluid analysis results. ?Given history of alcoholism and heroin use we will place him on low dose Precedex. Amp of D50 x1. The patient is an ex heroin user, things that he got hep C from syringes, he has never been tested for HIV.? Agreed to testing. Central line discussed in detail with the patient, risks and benefits were also discussed at bedside in the presence of his nurse.? He agrees we will sign a consent. He also agreed to intubation if this become necessary. GI PROPHYLAXIS:? IV PPI DVT PROPHYLAXIS:? Pneumatic stockings while in bed due to liver disease and low platelets (no anticoags) Follow up Sepsis exam done at 2120 pm 90/65, 119, 18, 92% on room air. On Levophed General:? Alert oriented x3 in pain, mild acute distress Cardiac:? Clear S1-S2, tachtcardic 120 bpm. No murmur, rubs or gallops. Pulmonary:? Diminished lung sounds bilaterally fine expiratory wheezing bilaterally .? No crackles, rales or rhonchi. Abdomen:? Slightly Protuberant, positive bowel sounds in all 4 quadrants.? Soft, slight tenderness to palpation over the RLQ, no rebound or guarding. No CVA tenderness. Neurologic:? As above.? No focal deficits noted. Vascular:? 2+ pulses upper and lower extremities distally.? Less than 2nd capillary refill of fingers and toes bilaterally upper and lower extremities This patient counter and care had a high probability of a clinically significant, sudden, or life threatening deterioration of this patient's condition which required my full and direct attention, intervention and personal management. Critical care time used for critical evaluation of this patient, diagnosis, treatment and coordination of care, review her records and documentation TOTAL CRITICAL CARE TIME?120 MIN . discussion and coordination with consultants, completely separate from any procedures performed. Patient's care was discussed in detail with Dr. Villalobos who is aware of all the above as well as the plan of care for this patient. Total time managing care of this patient today: 120 minutes.
[2025-03-30 19:51] LABS: ABG HCO3 8 mmol/L (22-26); ABG O2 % Saturation 97.0 %
--- NOTE | 2025-03-30 20:18 | PC.NURSE ---
Pt to ICU reprt given at bedside to ISAC Lopez
[2025-03-30 20:42] LABS: Hematocrit 28.3 % (42.0-52.0); Hemoglobin 9.4 g/dl (14.0-18.0); Mean Corpuscular HGB Conc 33.2 g/dl (31.0-36.0); Mean Corpuscular Hemoglobin 38.8 pg (27.0-33.0); NRBC Abs Auto 0.020 X10*3/uL (0.0-0.012); Red Blood Count 2.42 X10*6/uL (4.60-5.80)
[2025-03-30 20:43] LABS: Mean Corpuscular Volume 116.9 fL (80.0-98.0); NRBC Pct Auto 1.0 /100WBC (0.0-0.2); Platelet Count 94 X10*3/uL (160-400); WBC ABN SCTR FOR CBC 1
[2025-03-30] MEDS: Sodium Bicarbonate 8.4% 150 MEQ in Dextrose 5 % 850 ML 100 MEQ IV (20:54)
[2025-03-30] MEDS: dexmedeTOMIDine HCL/NS 400 MCG/100 ML PLAST..BAG 17.7 MCG IVCONT (21:02)
[2025-03-30 21:05] LABS: Band Neutrophils Percent 10 % (3-5); Lymphocytes Percent Manual 13 % (20-40); Macrocytosis 1+ (5-14) /OIF; Monocytes Percent Manual 4 % (2-11); Neutrophils Percent Manual 73 % (45-73); RBC Morphology NOTED
[2025-03-30 21:06] LABS: Basophilic Stippling 1+ (0-2) /OIF; Large Platelet PRESENT; Ovalocytes 1+ (5-14) /OIF; Spherocytes 1+ (0-2) /OIF; Tear Drop Cells 1+ (0-2) /OIF; Toxic Vacuolation PRESENT
[2025-03-30 21:07] LABS: Hypochromasia 1+ (5-14) /OIF; Polychromasia 1+ (0-2) /OIF
[2025-03-30 21:08] LABS: Alanine Aminotransferase 13 U/L (0-40); Albumin Level 3.8 g/dL (3.5-5.0); Alkaline Phosphatase 42 U/L (39-117); Anion Gap 38 (12-20); Aspartate Amino Transferase 61 U/L (5-37); Blood Urea Nitrogen 9 mg/dL (9-16); Calcium 8.6 mg/dL (8.4-10.2); Carbon Dioxide 7 mmol/L (22-29); Chloride 99 mmol/L (96-108); Creatinine Clr Calc Pharmacy 56.2; Estimated Glomerular Filt Rate 50; Lymphocytes Absolute Manual 0.3 X10*3/uL (1.2-4.9); Magnesium 1.9 mg/dL (1.6-2.6); Monocytes Absolute Manual 0.1 X10*3/uL (0.1-1.2); Neutrophils Absolute Manual 1.7 X10*3/uL (2.0-8.3); Potassium 3.0 mmol/L (3.3-5.1); Sodium 141 mmol/L (135-145); Total Protein 6.1 g/dL (6.5-8.0); White Blood Count 2.0 X10*3/uL (4.8-10.8)
[2025-03-30 21:19] LABS: ~Lactic Acid-LAB USE ONLY 20.7 mmol/L (0.5-2.0)
--- NOTE | 2025-03-30 21:52 | W.PM.CCHP ---
Procedures Date of Service Date of Service: 03/30/25 <NESHA Gallegos - Last Filed: 03/30/25 21:53> 03/31/25 <Jose Villalobos MD - Last Filed: 03/31/25 12:20> Central Line Placement Right IJ: Central Line Comments: Risks and benefits discussed in detail with the patient at bedside in the presence of his nurse. The patient has signed a consent. <NESHA Gallegos - Last Filed: 03/30/25 21:53> Consent for Procedure: Emergent-no informed consent obtained <NESHA Gallegos - Last Filed: 03/30/25 21:53> Time out performed: Yes <NESHA Gallegos - Last Filed: 03/30/25 21:53> Sterile Technique Used: Yes <NESHA Gallegos - Last Filed: 03/30/25 21:53> Patient placed on monitor/pulse ox: Yes <NESHA Gallegos - Last Filed: 03/30/25 21:53> prep: mask, gown, gloves and other (Cap) <NESHA Gallegos - Last Filed: 03/30/25 21:53> Central line prep: Chlorhexidine scrub and sterile drapes applied <NESHA Gallegos - Last Filed: 03/30/25 21:53> Local anesthesia used: lidocaine 1% <NESHA Gallegos - Last Filed: 03/30/25 21:53> Amount of anesthesia used (ml): 5 <NESHA Gallegos - Last Filed: 03/30/25 21:53> Ultrasound used for placement: Yes <NESHA Gallegos - Last Filed: 03/30/25 21:53> Central line lumen inserted: triple <NESHA Gallegos - Last Filed: 03/30/25 21:53> Post procedure: sutured in place, good blood return, all ports aspirated, flushed, capped and sterile dressing applied <NESHA Gallegos - Last Filed: 03/30/25 21:53> Post procedure x-ray: tip of catheter in good position and no pneumothorax seen <NESHA Gallegos - Last Filed: 03/30/25 21:53> Patient tolerated procedure: well <NESHA Gallegos - Last Filed: 03/30/25 21:53> Complications: none <NESHA Gallegos - Last Filed: 03/30/25 21:53>
[2025-03-30] MEDS: Vasopressin 20 UNIT/100 ML INFUS..BTL 6 UNIT IVCONT (22:04)
[2025-03-30] MEDS: LACTATED RINGERS 2124 ML IV (22:27)
[2025-03-30 22:41] LABS: Glucose, Whole Blood 120 mg/dL (60-115)
[2025-03-30] MEDS: Potassium Chloride/H20 40 MEQ/100 ML PIGGYBACK 100 MEQ IV (23:40)
[2025-03-31] VITALS (55 sets, daily range): BP systolic 91–127; BP diastolic 45–90; PULSE 105–136; RESP 14–40; TEMP 32–38.2; O2SAT 84–100; BMI 21.9
--- NOTE | 2025-03-31 | ECG_ITS ---
Test Reason : baseline tachycardia Blood Pressure : */* mmHG Vent. Rate : 123 BPM Atrial Rate : 123 BPM P-R Int : 128 ms QRS Dur : 86 ms QT Int : 328 ms P-R-T Axes : 41 20 -15 degrees QTcB Int : 469 ms Sinus tachycardia Low voltage QRS ST & T wave abnormality, consider anterolateral ischemia Abnormal ECG No previous ECGs available Referred By: Bharath Aguero Electronically Signed By: ROVERTO PHILLIP MD
--- NOTE | 2025-03-31 00:27 | W.PM.CCHP ---
Procedures Date of Service Date of Service: 03/31/25 <NESHA Gallegos - Last Filed: 03/31/25 00:32> 03/31/25 <Jose Villalobos MD - Last Filed: 03/31/25 12:20> Procedure Note Procedure Note: Discussed with the patient the necessity of switching his Bowens catheter, he understood and agreed. Bladder scan performed by me at bedside is 550 cc within the bladder despite Bowens catheter placed by nursing personnel. Placement of Bowens catheter placed by nursing earlier does not seem to be working, despite of switching the existing Bowens, this was not possible. I Attempted this with a 18. [place] coude catheter relieving small amount of blood clots at the tip of the catheter, this did not drain, subsequently in a sterile fashion, the glans of the penis was cleaned with Betadine x2, a Bowens catheter was inserted into the urethra and the balloon was inflated. Initially very little drainage was obtained, subsequently this was drained by me with approximately 30 cc of saline, this allowed some of the blood clots to flow out and urine started to come out into the Bowens bag. Sterility was maintained throughout the procedure, no complications. <NESHA Gallegos - Last Filed: 03/31/25 00:32>
[2025-03-31 00:44] LABS: Alanine Aminotransferase 10 U/L (0-40); Albumin Level 4.0 g/dL (3.5-5.0); Alkaline Phosphatase 29 U/L (39-117); Anion Gap 35 (12-20); Aspartate Amino Transferase 54 U/L (5-37); Blood Urea Nitrogen 8 mg/dL (9-16); Calcium 7.9 mg/dL (8.4-10.2); Carbon Dioxide 10 mmol/L (22-29); Chloride 99 mmol/L (96-108); Creatinine Clr Calc Pharmacy 51.6; Estimated Glomerular Filt Rate 45; Potassium 3.7 mmol/L (3.3-5.1); Sodium 140 mmol/L (135-145); Total Protein 5.8 g/dL (6.5-8.0)
[2025-03-31] MEDS: Vasopressin 20 UNIT/100 ML INFUS..BTL 12 UNIT IVCONT ×4 (00:59→23:07)
[2025-03-31 01:14] LABS: INTERNATIONAL NORM RATIO 2.2 (0.9-1.1); Prothrombin Time 25.8 SEC (10.9-12.4)
[2025-03-31 02:07] LABS: Reflex Lactate? Lactic Acid Added
[2025-03-31 02:33] LABS: ABG HCO3 12 mmol/L (22-26); ABG O2 % Saturation 80.0 %
[2025-03-31 02:38] LABS: Glucose, Whole Blood 146 mg/dL (60-115)
[2025-03-31] MEDS: Hydrocortisone Sod Succ/PF 100 MG VIAL IVPUSH (02:43)
--- NOTE | 2025-03-31 02:48 | W.PM.CCHP ---
Procedures Date of Service Date of Service: 03/31/25 <NESHA Gallegos - Last Filed: 03/31/25 03:14> 03/31/25 <Jose Villalobos MD - Last Filed: 03/31/25 12:20> Intubation Intubation Comments: Despite all efforts, the patient continued to deteriorate continue to be tachypneic, intermittently hypoxic requiring higher oxygen supplementation. It was admitted that at some point he was going to tire out and he finally was noted to be more tire although still awake and alert enough to understand that he needed to be intubated, satting anywhere between 82 and 84% on 10 L OxyMask with use of his accessory muscles. Repeat ABG shows pH of 7.1, pCO2 30, PO2 61, bicarb 12. At this point the decision to intubate was made. Time-out was taken. The patient has no upper dentures. <NESHA Gallegos - Last Filed: 03/31/25 03:14> Consent for Procedure: Elective - informed consent obtained (from patient earlier on RN witnessed. ) <NESHA Gallegos - Last Filed: 03/31/25 03:14> Time out performed: Yes <NESHA Gallegos - Last Filed: 03/31/25 03:14> Sedative: propofol <NESHA Gallegos - Last Filed: 03/31/25 03:14> Mg given: 100 <NESHA Gallegos - Last Filed: 03/31/25 03:14> Paralytic: rocuronium <NESHA Gallegos - Last Filed: 03/31/25 03:14> Mg given: 30 <NESHA Gallegos - Last Filed: 03/31/25 03:14> Laryngoscope: fiber optic video scope <NESHA Gallegos - Last Filed: 03/31/25 03:14> ET tube size: 7.5 <NESHA Gallegos - Last Filed: 03/31/25 03:14> ET tube uncuffed: Yes <NESHA Gallegos - Last Filed: 03/31/25 03:14> Tube secured depth (cm): 25 <NESHA Gallegos - Last Filed: 03/31/25 03:14> Tube secured location: lips <NESHA Gallegos Last Filed: 03/31/25 03:14> Tube placement confirmation: visualized tube passing through cords, equal breath sounds bilaterally, no breath sounds over epigastrium and confirmation by capnometry <NESHA Gallegos Last Filed: 03/31/25 03:14> Patient tolerated procedure: well, no complications and other (Post intubation x-ray reveals the tip of the tube around 1.5-2 cm from the kiesha. OG tube past the stomach.) <NESHA Gallegos Last Filed: 03/31/25 03:14> Intubation complications: none and other (Significant amount of black secretions were suctioned from the posterior pharynx during intubation. ) <NESHA Gallegos Last Filed: 03/31/25 03:14>
[2025-03-31 02:57] LABS: ~Lactic Acid-LAB USE ONLY 20.9 mmol/L (0.5-2.0)
[2025-03-31] MEDS: Acetylcysteine 15,000 MG in Dextrose 5 % 200 ML 200 MG IV (03:47)
[2025-03-31 04:18] LABS: Reflex Lactate? 2 Y
--- NOTE | 2025-03-31 04:26 | PC.ADMIT ---
Patient arrived from the ED hypotensive, tachycardic and tachypneic with low urine output. Patients skin is cool and jaundiced but intact. IV fluids, pressors, and multiple meds administered for volume resuscitation and blood pressure control, to protect kidneys, and to slow h.r and breathing. Patients oxygenation status started to fail with a rr in the 40's and increasing need for oxygen. Patient started on 2L oxymask for an oxygen sat of 87% and ended up on 12L oxymask and sats dropped to below 85%. Patient reporting sob. Decision was made to intubate patient at 0230. Successful intubation, need for vasopressors weaned, current raas with propofol -3. ET tube 7.5/ 25 at the lip. Issues with urine output tonight. Patient came up to floor with coude cath and very little urine output. After all the IV fluids patient received, patient still not urinating. Bladder scanned for >600. Coude replaced with lynn catheter, flushed catheter with blood clots obstructing flow and a small amount of clots coming out. Small amount of urine flow coming out. Labs, cxr, EKG, all ordered and administered.
[2025-03-31 04:41] LABS: Venous Blood Gas Refer to POC result
[2025-03-31 04:43] LABS: VBG HCO3 15 mmol/L (22-26); VBG O2 % Saturation 73.0 %
[2025-03-31 04:45] LABS: Hematocrit 26.0 % (42.0-52.0); Hemoglobin 9.0 g/dl (14.0-18.0); Mean Corpuscular HGB Conc 34.6 g/dl (31.0-36.0); Mean Corpuscular Hemoglobin 39.8 pg (27.0-33.0); NRBC Abs Auto 0.030 X10*3/uL (0.0-0.012); Red Blood Count 2.26 X10*6/uL (4.60-5.80)
[2025-03-31 04:48] LABS: Mean Corpuscular Volume 115.0 fL (80.0-98.0); NRBC Pct Auto 1.2 /100WBC (0.0-0.2); Platelet Count 85 X10*3/uL (160-400); WBC ABN SCTR FOR CBC 1; White Blood Count 2.6 X10*3/uL (4.8-10.8)
[2025-03-31 05:07] LABS: Band Neutrophils Percent 45 % (3-5); Eosinophils Percent Manual 1 % (0-4); Lymphocytes Absolute Manual 0.3 X10*3/uL (1.2-4.9); Lymphocytes Percent Manual 10 % (20-40); Metamyelocytes Absolute 0.1 X10*3/uL; Metamyelocytes Percent 2 %; Monocytes Percent Manual 1 % (2-11); Myelocytes Percent 1 %; Neutrophils Absolute Manual 2.2 X10*3/uL (2.0-8.3); Neutrophils Percent Manual 40 % (45-73)
[2025-03-31 05:10] LABS: B Type Natriuretic Peptide 2956 pg/mL (<100)
[2025-03-31 05:12] LABS: Macrocytosis 1+ (5-14) /OIF; RBC Morphology NOTED
[2025-03-31 05:13] LABS: Burr Cells 1+ (0-2) /OIF; Ovalocytes 1+ (5-14) /OIF
[2025-03-31 05:14] LABS: Toxic Vacuolation PRESENT
[2025-03-31 05:16] LABS: Polychromasia 1+ (0-2) /OIF
[2025-03-31 05:18] LABS: Toxic Granulation PRESENT
[2025-03-31 05:26] LABS: Alanine Aminotransferase 10 U/L (0-40); Albumin Level 3.3 g/dL (3.5-5.0); Alkaline Phosphatase 20 U/L (39-117); Anion Gap 33 (12-20); Aspartate Amino Transferase 55 U/L (5-37); Blood Urea Nitrogen 9 mg/dL (9-16); Calcium 7.5 mg/dL (8.4-10.2); Carbon Dioxide 15 mmol/L (22-29); Chloride 98 mmol/L (96-108); Creatinine Clr Calc Pharmacy 46.6; Estimated Glomerular Filt Rate 40; Magnesium 2.1 mg/dL (1.6-2.6); Potassium 3.0 mmol/L (3.3-5.1); Sodium 143 mmol/L (135-145); Total Protein 5.0 g/dL (6.5-8.0)
[2025-03-31 05:38] LABS: ~Lactic Acid-LAB USE ONLY 21.6 mmol/L (0.5-2.0)
[2025-03-31 06:48] LABS: ABG Refer to POC result
[2025-03-31 06:49] LABS: ABG Refer to POC result
[2025-03-31] MEDS: Sodium Bicarbonate 8.4% 150 MEQ in Dextrose 5 % 850 ML 100 MEQ IV ×3 (07:14→21:17)
[2025-03-31] MEDS: Albumin Human 25 % 100 ML 133.33 ML IV ×4 (07:20→16:32)
[2025-03-31] MEDS: Potassium Chloride/H20 40 MEQ/100 ML PIGGYBACK 100 MEQ IV (07:35)
[2025-03-31] MEDS: Bumetanide 1 MG/4 ML VIAL IVPUSH (07:52)
[2025-03-31] MEDS: Calcium Gluconate/NaCl,Iso-Osm 1 GM/50 ML PLAST..BAG IV (08:06)
[2025-03-31] MEDS: Thiamine HCL 100 MG in 0.9 % Sodium Chloride 100 ML 202 MG IV (08:12)
[2025-03-31] MEDS: Chlorhexidine Gluc Oral Rinse 15 ML MOUTHWASH BUCCAL ×3 (08:29→21:25)
[2025-03-31 11:12] LABS: VBG HCO3 17 mmol/L (22-26); VBG O2 % Saturation 54.0 %
[2025-03-31 11:21] LABS: Hematocrit 26.2 % (42.0-52.0); Hemoglobin 9.0 g/dl (14.0-18.0); Mean Corpuscular HGB Conc 34.4 g/dl (31.0-36.0); Mean Corpuscular Hemoglobin 39.5 pg (27.0-33.0); NRBC Abs Auto 0.060 X10*3/uL (0.0-0.012); Red Blood Count 2.28 X10*6/uL (4.60-5.80)
[2025-03-31 11:24] LABS: Mean Corpuscular Volume 114.9 fL (80.0-98.0); NRBC Pct Auto 2.0 /100WBC (0.0-0.2); Platelet Count 57 X10*3/uL (160-400); WBC ABN SCTR FOR CBC 1; White Blood Count 3.1 X10*3/uL (4.8-10.8)
[2025-03-31 11:30] LABS: Alanine Aminotransferase 11 U/L (0-40); Albumin Level 4.0 g/dL (3.5-5.0); Alkaline Phosphatase 9 U/L (39-117); Anion Gap 35 (12-20); Aspartate Amino Transferase 63 U/L (5-37); Blood Urea Nitrogen 9 mg/dL (9-16); Calcium 7.8 mg/dL (8.4-10.2); Carbon Dioxide 17 mmol/L (22-29); Chloride 94 mmol/L (96-108); Creatinine Clr Calc Pharmacy 40.4; Estimated Glomerular Filt Rate 34; Magnesium 2.0 mg/dL (1.6-2.6); Potassium 3.4 mmol/L (3.3-5.1); Sodium 143 mmol/L (135-145); Total Protein 5.6 g/dL (6.5-8.0)
[2025-03-31 11:43] LABS: Band Neutrophils Percent 19 % (3-5); Lymphocytes Absolute Manual 0.5 X10*3/uL (1.2-4.9); Lymphocytes Percent Manual 16 % (20-40); Monocytes Absolute Manual 0.1 X10*3/uL (0.1-1.2); Monocytes Percent Manual 2 % (2-11); Neutrophils Absolute Manual 2.5 X10*3/uL (2.0-8.3); Neutrophils Percent Manual 63 % (45-73)
[2025-03-31 11:44] LABS: Large Platelet PRESENT; Macrocytosis 2+ (15-30) /OIF; RBC Morphology NOTED
[2025-03-31 11:45] LABS: Dohle Bodies PRESENT; Toxic Vacuolation PRESENT
--- NOTE | 2025-03-31 12:26 | PM.CCPN ---
Subjective Subjective Date of Service: 03/31/25 Interval History: 59-year-old biological male who identifies as female with history of breast lumpectomy no evidence of cancer, significant alcoholism, untreated hepatitis-C presented to the ED with septic shock secondary to bacterial peritonitis, possible pyelonephritis and colitis currently intubated on ventilator support and on vasopressor support. FiO2 of 70% on the vent, on Levophed and vasopressin for vasopressor support Has significant lactic acidosis, EMERY Critical Care Time (minutes): 35 Physical Exam Vital Signs: Vital Signs: Last Vital Signs Temp 99.3 F 03/31/25 12:00 Pulse 107 H 03/31/25 12:00 Resp 21 H 03/31/25 12:00 BP 101/72 03/31/25 12:00 Pulse Ox 95 03/31/25 12:00 O2 Del Method Mechanical Ventil ation 03/31/25 12:00 O2 Flow Rate 12 03/31/25 02:00 FiO2 60 03/31/25 12:00 BMI result Body Mass Index 21.9 General: N/C acute distress, ill appearing and tired appearing Nutritional Appearance: well nourished and overweight Eyes: appearance normal, both eyes and all related structures; Alignment and Position: alignment normal and position normal Neck: No lymphadenopathy, no thyromegaly Resp: bilateral air entry equal, occasional added sounds present Cardio: Regular rate, regular rhythm; Heart sounds: S1 normal heart sound present and S2 normal heart sound present GI: soft, nontender, no guarding, no hepatosplenomegaly : bladder normal to inspection, bladder normal to palpation, no renal angle tenderness Skin: no rashes or lesions noted and elasticity normal Neuro: Sedated, no focal deficits Objective Data Labs 03/31/25 11:06 03/31/25 11:06 Labs: Laboratory Results - last 24 hr 03/30/25 03/30/25 03/30/25 12:15 13:11 14:35 WBC RBC Hgb Hct MCV MCH MCHC RDW Plt Count MPV Immature Gran % (Auto) Neut % (Auto) Lymph % (Auto) [place] % (Auto) Eos % (Auto) Baso % (Auto) Lymph # (Auto) [place] # (Auto) Eos # (Auto) Baso # (Auto) Abs Immat Gran (auto) Absolute Neuts (auto) Absolute Nucleated RBC Nucleated RBC % (auto) Neutrophils % (Manual) Band Neutrophils % Lymphocytes % (Manual) Monocytes % (Manual) Eosinophils % (Manual) Metamyelocytes % Myelocytes % Abs Neuts (Manual) Lymphocytes # (Manual) Monocytes # (Manual) Metamyelocytes # Nucleated RBCs Toxic Granulation Toxic Vacuolation Dohle Bodies Platelet Estimate Large Platelets Plt Morphology Comment RBC Morphology Polychromasia Hypochromasia Basophilic Stippling Macrocytosis Spherocytes Pappenheimer Bodies Tear Drop Cells Ovalocytes She Cells PT INR O2 Saturation ABG pH at Pt Temp ABG pCO2 at Pt Temp ABG pO2 at Pt Temp ABG HCO3 ABG Base Excess (Actual) VBG pH VBG pCO2 VBG pO2 VBG HCO3 VBG O2 Saturation VBG Base Excess Sodium 138 Potassium 3.4 Chloride 97 Carbon Dioxide 21 L Anion Gap 23 H BUN 9 Creatinine 0.99 Estim Creat Clear Calc 82.4 Estimated GFR > 60 POC Glucose Random Glucose 80 Lactic Acid 15.9 H* Lactic Acid F/U @ 2Hr Lactic Acid F/U @ 4Hr Calcium 8.9 D Phosphorus Magnesium 1.3 L* Total Bilirubin 6.0 H Direct Bilirubin 2.0 H AST 86 H ALT 22 Alkaline Phosphatase 82 Lactate Dehydrogenase B-Natriuretic Peptide Total Protein 5.8 L Albumin 2.5 L Amylase 47 Lipase 12 Urine Color DK YELLOW Urine Appearance Hazy Urine pH 5.5 Ur Specific [place] >= 1.030 H Urine Protein 100 (2+) H Urine Glucose (UA) 250 H Urine Ketones 15 Urine Blood Trace Urine Nitrite Positive H Ur Leukocyte Esterase Negative Urine RBC 0-2 Urine WBC 0-5 Ur Squamous Epith Cells 3-5 Urine Bacteria Trace Hyaline Casts 3-5 Peritoneal WBC Peritoneal RBC Periton Neutrophils Periton Lymphocytes Peritoneal Monocytes Blood Type Antibody Screen 03/30/25 03/30/25 03/30/25 14:54 15:25 17:29 WBC RBC Hgb Hct MCV MCH MCHC RDW Plt Count MPV Immature Gran % (Auto) Neut % (Auto) Lymph % (Auto) [place] % (Auto) Eos % (Auto) Baso % (Auto) Lymph # (Auto) [place] # (Auto) Eos # (Auto) Baso # (Auto) Abs Immat Gran (auto) Absolute Neuts (auto) Absolute Nucleated RBC Nucleated RBC % (auto) Neutrophils % (Manual) Band Neutrophils % Lymphocytes % (Manual) Monocytes % (Manual) Eosinophils % (Manual) Metamyelocytes % Myelocytes % Abs Neuts (Manual) Lymphocytes # (Manual) Monocytes # (Manual) Metamyelocytes # Nucleated RBCs Toxic Granulation Toxic Vacuolation Dohle Bodies Platelet Estimate Large Platelets Plt Morphology Comment RBC Morphology Polychromasia Hypochromasia Basophilic Stippling Macrocytosis Spherocytes Pappenheimer Bodies Tear Drop Cells Ovalocytes She Cells PT INR O2 Saturation ABG pH at Pt Temp ABG pCO2 at Pt Temp ABG pO2 at Pt Temp ABG HCO3 ABG Base Excess (Actual) VBG pH VBG pCO2 VBG pO2 VBG HCO3 VBG O2 Saturation VBG Base Excess Sodium Potassium Chloride Carbon Dioxide Anion Gap BUN Creatinine Estim Creat Clear Calc Estimated GFR POC Glucose Random Glucose Lactic Acid Lactic Acid F/U @ 2Hr 16.1 H* Lactic Acid F/U @ 4Hr Calcium Phosphorus Magnesium Total Bilirubin Direct Bilirubin AST ALT Alkaline Phosphatase Lactate Dehydrogenase 239 B-Natriuretic Peptide Total Protein Albumin Amylase Lipase Urine Color Urine Appearance Urine pH Ur Specific [place] Urine Protein Urine Glucose (UA) Urine Ketones Urine Blood Urine Nitrite Ur Leukocyte Esterase Urine RBC Urine WBC Ur Squamous Epith Cells Urine Bacteria Hyaline Casts Peritoneal WBC 2.688 Peritoneal RBC < 0.002 Periton Neutrophils 95 Periton Lymphocytes 2 Peritoneal Monocytes 3 Blood Type Antibody Screen 03/30/25 03/30/25 03/30/25 19:47 20:33 22:37 WBC 2.0 L RBC 2.42 L Hgb 9.4 L Hct 28.3 L MCV 116.9 H D MCH 38.8 H MCHC 33.2 RDW 17.1 H Plt Count 94 L MPV 11.0 Immature Gran % (Auto) Cancelled Neut % (Auto) Cancelled Lymph % (Auto) Cancelled [place] % (Auto) Cancelled Eos % (Auto) Cancelled Baso % (Auto) Cancelled Lymph # (Auto) Cancelled [place] # (Auto) Cancelled Eos # (Auto) Cancelled Baso # (Auto) Cancelled Abs Immat Gran (auto) Cancelled Absolute Neuts (auto) Cancelled Absolute Nucleated RBC 0.020 H Nucleated RBC % (auto) 1.0 H Neutrophils % (Manual) 73 Band Neutrophils % 10 H Lymphocytes % (Manual) 13 L Monocytes % (Manual) 4 Eosinophils % (Manual) Metamyelocytes % Myelocytes % Abs Neuts (Manual) 1.7 L Lymphocytes # (Manual) 0.3 L Monocytes # (Manual) 0.1 Metamyelocytes # Nucleated RBCs Toxic Granulation Toxic Vacuolation PRESENT Dohle Bodies Platelet Estimate DECREASED Large Platelets PRESENT Plt Morphology Comment NOTED RBC Morphology NOTED Polychromasia 1+ (0-2) Hypochromasia 1+ (5-14) Basophilic Stippling 1+ (0-2) Macrocytosis 1+ (5-14) Spherocytes 1+ (0-2) Pappenheimer Bodies Tear Drop Cells 1+ (0-2) Ovalocytes 1+ (5-14) She Cells PT INR O2 Saturation 97.0 ABG pH at Pt Temp 7.22 L ABG pCO2 at Pt Temp 18 L* ABG pO2 at Pt Temp 100 ABG HCO3 8 L ABG Base Excess (Actual) -17.6 VBG pH VBG pCO2 VBG pO2 VBG HCO3 VBG O2 Saturation VBG Base Excess Sodium 141 Potassium 3.0 L Chloride 99 Carbon Dioxide 7 L* D Anion Gap 38 H BUN 9 Creatinine 1.45 H Estim Creat Clear Calc 56.2 Estimated GFR 50 POC Glucose 120 H Random Glucose 31 L* Lactic Acid Lactic Acid F/U @ 2Hr Lactic Acid F/U @ 4Hr 20.7 H* Calcium 8.6 Phosphorus 5.3 H Magnesium 1.9 Total Bilirubin 4.4 H Direct Bilirubin AST 61 H ALT 13 Alkaline Phosphatase 42 Lactate Dehydrogenase B-Natriuretic Peptide Total Protein 6.1 L Albumin 3.8 Amylase Lipase Urine Color Urine Appearance Urine pH Ur Specific [place] Urine Protein Urine Glucose (UA) Urine Ketones Urine Blood Urine Nitrite Ur Leukocyte Esterase Urine RBC Urine WBC Ur Squamous Epith Cells Urine Bacteria Hyaline Casts Peritoneal WBC Peritoneal RBC Periton Neutrophils Periton Lymphocytes Peritoneal Monocytes Blood Type Antibody Screen 03/31/25 03/31/25 03/31/25 00:03 02:14 02:29 WBC RBC Hgb Hct MCV MCH MCHC RDW Plt Count MPV Immature Gran % (Auto) Neut % (Auto) Lymph % (Auto) [place] % (Auto) Eos % (Auto) Baso % (Auto) Lymph # (Auto) [place] # (Auto) Eos # (Auto) Baso # (Auto) Abs Immat Gran (auto) Absolute Neuts (auto) Absolute Nucleated RBC Nucleated RBC % (auto) Neutrophils % (Manual) Band Neutrophils % Lymphocytes % (Manual) Monocytes % (Manual) Eosinophils % (Manual) Metamyelocytes % Myelocytes % Abs Neuts (Manual) Lymphocytes # (Manual) Monocytes # (Manual) Metamyelocytes # Nucleated RBCs Toxic Granulation Toxic Vacuolation Dohle Bodies Platelet Estimate Large Platelets Plt Morphology Comment RBC Morphology Polychromasia Hypochromasia Basophilic Stippling Macrocytosis Spherocytes Pappenheimer Bodies Tear Drop Cells Ovalocytes [place] Cells PT 25.8 H D INR 2.2 H O2 Saturation 80.0 ABG pH at Pt Temp 7.18 L* ABG pCO2 at Pt Temp 32 ABG pO2 at Pt Temp 61 L ABG HCO3 12 L ABG Base Excess (Actual) -14.5 VBG pH VBG pCO2 VBG pO2 VBG HCO3 VBG O2 Saturation VBG Base Excess Sodium 140 Potassium 3.7 D Chloride 99 Carbon Dioxide 10 L* D Anion Gap 35 H BUN 8 L Creatinine 1.58 H Estim Creat Clear Calc 51.6 Estimated GFR 45 POC Glucose Random Glucose 155 H Lactic Acid 20.3 H* Lactic Acid F/U @ 2Hr 20.9 H* Lactic Acid F/U @ 4Hr Calcium 7.9 L D Phosphorus Magnesium Total Bilirubin 4.1 H Direct Bilirubin AST 54 H ALT 10 Alkaline Phosphatase 29 L Lactate Dehydrogenase B-Natriuretic Peptide Total Protein 5.8 L Albumin 4.0 Amylase Lipase Urine Color Urine Appearance Urine pH Ur Specific [place] Urine Protein Urine Glucose (UA) Urine Ketones Urine Blood Urine Nitrite Ur Leukocyte Esterase Urine RBC Urine WBC Ur Squamous Epith Cells Urine Bacteria Hyaline Casts Peritoneal WBC Peritoneal RBC Periton Neutrophils Periton Lymphocytes Peritoneal Monocytes Blood Type Antibody Screen 03/31/25 03/31/25 03/31/25 02:34 04:34 04:39 WBC 2.6 L RBC 2.26 L Hgb 9.0 L Hct 26.0 L MCV 115.0 H MCH 39.8 H MCHC 34.6 RDW 17.1 H Plt Count 85 L MPV 10.7 Immature Gran % (Auto) Cancelled Neut % (Auto) Cancelled Lymph % (Auto) Cancelled [place] % (Auto) Cancelled Eos % (Auto) Cancelled Baso % (Auto) Cancelled Lymph # (Auto) Cancelled [place] # (Auto) Cancelled Eos # (Auto) Cancelled Baso # (Auto) Cancelled Abs Immat Gran (auto) Cancelled Absolute Neuts (auto) Cancelled Absolute Nucleated RBC 0.030 H Nucleated RBC % (auto) 1.2 H Neutrophils % (Manual) 40 L Band Neutrophils % 45 H Lymphocytes % (Manual) 10 L Monocytes % (Manual) 1 L Eosinophils % (Manual) 1 Metamyelocytes % 2 Myelocytes % 1 Abs Neuts (Manual) 2.2 Lymphocytes # (Manual) 0.3 L Monocytes # (Manual) Metamyelocytes # 0.1 Nucleated RBCs 3 H Toxic Granulation PRESENT Toxic Vacuolation PRESENT Dohle Bodies Platelet Estimate DECREASED Large Platelets Plt Morphology Comment NOTED RBC Morphology NOTED Polychromasia 1+ (0-2) Hypochromasia Basophilic Stippling Macrocytosis 1+ (5-14) Spherocytes Pappenheimer Bodies Tear Drop Cells Ovalocytes 1+ (5-14) [place] Cells 1+ (0-2) PT INR O2 Saturation ABG pH at Pt Temp ABG pCO2 at Pt Temp ABG pO2 at Pt Temp ABG HCO3 ABG Base Excess (Actual) VBG pH 7.27 L VBG pCO2 31 VBG pO2 51 VBG HCO3 15 L VBG O2 Saturation 73.0 VBG Base Excess -10.6 Sodium 143 Potassium 3.0 L Chloride 98 Carbon Dioxide 15 L Anion Gap 33 H BUN 9 Creatinine 1.75 H Estim Creat Clear Calc 46.6 Estimated GFR 40 POC Glucose 146 H Random Glucose 181 H Lactic Acid Cancelled Lactic Acid F/U @ 2Hr Lactic Acid F/U @ 4Hr 21.6 H* Calcium 7.5 L Phosphorus 4.3 Magnesium 2.1 Total Bilirubin 3.4 H Direct Bilirubin AST 55 H ALT 10 Alkaline Phosphatase 20 L Lactate Dehydrogenase B-Natriuretic Peptide 2956 H Total Protein 5.0 L Albumin 3.3 L Amylase Lipase Urine Color Urine Appearance Urine pH Ur Specific [place] Urine Protein Urine Glucose (UA) Urine Ketones Urine Blood Urine Nitrite Ur Leukocyte Esterase Urine RBC Urine WBC Ur Squamous Epith Cells Urine Bacteria Hyaline Casts Peritoneal WBC Peritoneal RBC Periton Neutrophils Periton Lymphocytes Peritoneal Monocytes Blood Type A Positive Antibody Screen NEGATIVE 03/31/25 03/31/25 11:06 11:08 WBC 3.1 L RBC 2.28 L Hgb 9.0 L Hct 26.2 L MCV 114.9 H MCH 39.5 H MCHC 34.4 RDW 16.9 H Plt Count 57 L D MPV 11.3 Immature Gran % (Auto) Cancelled Neut % (Auto) Cancelled Lymph % (Auto) Cancelled [place] % (Auto) Cancelled Eos % (Auto) Cancelled Baso % (Auto) Cancelled Lymph # (Auto) Cancelled [place] # (Auto) Cancelled Eos # (Auto) Cancelled Baso # (Auto) Cancelled Abs Immat Gran (auto) Cancelled Absolute Neuts (auto) Cancelled Absolute Nucleated RBC 0.060 H Nucleated RBC % (auto) 2.0 H Neutrophils % (Manual) 63 Band Neutrophils % 19 H Lymphocytes % (Manual) 16 L Monocytes % (Manual) 2 Eosinophils % (Manual) Metamyelocytes % Myelocytes % Abs Neuts (Manual) 2.5 Lymphocytes # (Manual) 0.5 L Monocytes # (Manual) 0.1 Metamyelocytes # Nucleated RBCs 3 H Toxic Granulation Toxic Vacuolation PRESENT Dohle Bodies PRESENT Platelet Estimate DECREASED Large Platelets PRESENT Plt Morphology Comment NOTED RBC Morphology NOTED Polychromasia Hypochromasia Basophilic Stippling Macrocytosis 2+ (15-30) Spherocytes Pappenheimer Bodies PRESENT Tear Drop Cells Ovalocytes She Cells PT INR O2 Saturation ABG pH at Pt Temp ABG pCO2 at Pt Temp ABG pO2 at Pt Temp ABG HCO3 ABG Base Excess (Actual) VBG pH 7.37 VBG pCO2 30 VBG pO2 39 VBG HCO3 17 L VBG O2 Saturation 54.0 VBG Base Excess -6.3 Sodium 143 Potassium 3.4 Chloride 94 L Carbon Dioxide 17 L Anion Gap 35 H BUN 9 Creatinine 2.03 H Estim Creat Clear Calc 40.4 Estimated GFR 34 POC Glucose Random Glucose 153 H Lactic Acid Lactic Acid F/U @ 2Hr Lactic Acid F/U @ 4Hr Calcium 7.8 L Phosphorus 2.6 L Magnesium 2.0 Total Bilirubin 3.4 H Direct Bilirubin AST 63 H ALT 11 Alkaline Phosphatase 9 L Lactate Dehydrogenase B-Natriuretic Peptide Total Protein 5.6 L Albumin 4.0 Amylase Lipase Urine Color Urine Appearance Urine pH Ur Specific [place] Urine Protein Urine Glucose (UA) Urine Ketones Urine Blood Urine Nitrite Ur Leukocyte Esterase Urine RBC Urine WBC Ur Squamous Epith Cells Urine Bacteria Hyaline Casts Peritoneal WBC Peritoneal RBC Periton Neutrophils Periton Lymphocytes Peritoneal Monocytes Blood Type Antibody Screen Microbiology Microbiology Results: Microbiology 03/30/25 Unknown Urine clean catch - Clean Catch Midstream Urine Culture - Preliminary Culture in progress. 03/30/25 15:25 Abdominal Fluid Gram Stain - Final 03/30/25 15:25 Abdominal Fluid Routine Culture - Preliminary Gram negative [place] 03/30/25 15:25 Abdominal Fluid Anaerobic Culture - Preliminary Culture in progress. 03/30/25 14:35 Blood - Venous Blood Culture - Preliminary Prelim: GNR Gram Stain only 03/30/25 14:35 Blood - Venous Blood Culture - Preliminary Prelim: GNR Gram Stain only Progress Note: A&P Assessment and plan (1) Acute encephalopathy: Status: Acute (2) Septic shock: Status: Acute (3) Acute kidney injury: Status: Acute (4) Acute lactic acidosis: Status: Acute (5) Sepsis with acute liver failure and septic shock: Status: Acute Plan 59-year-old biological male who identifies as female with history of breast lumpectomy no evidence of cancer, significant alcoholism, untreated hepatitis-C presented to the ED with septic shock secondary to bacterial peritonitis, possible pyelonephritis and colitis currently intubated on ventilator support and on vasopressor support. Neuro: Acute encephalopathy possibly due to metabolic encephalopathy On propofol for sedation, as needed fentanyl for analgesia Close neurological status monitoring in the ICU every hour Cardiac: Shock: Possibly secondary to SBP, pyelonephritis On Levophed support, titrate Levophed to keep map above 65 mm Hg Respiratory: Acute hypoxemic respiratory failure due to bilateral pneumonia, tracheal aspirate showing thin grayson color fluid which is sent for cultures Currently on ventilator support On PRVC mode FiO2 70, PEEP 5, TV 400, RR 20 Peak pressures and plateau pressures are under the curve Ventilator management bundle with head end elevation, aspiration precaution, chlorhexidine mouthwash, daily awakening trials, daily spontaneous breathing trials GI: We hold off on tube feeds Decompensated 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 Has ascites and SBP Has coagulopathy INR 2.2 Renal: Acute kidney injury possibly secondary to ATN Baseline creatinine normal, creatinine today is 2.03 We will closely monitor I's and O's Avoid nephrotoxic medications Acute lactic acidosis: Secondary to colitis, SBP and poor clearance from cirrhosis Lactate above 20 On sodium bicarbonate infusion for severe acidosis Heme: Chronic anemia, closely monitor H&H, transfuse for hemoglobin less than 7 grams/deciliter Endocrine: Blood sugars under control Sliding scale insulin as needed Infectious disease: Blood cultures and ascitic fluid cultures growing Gram-negative rods Continue Zosyn Musculoskeletal: Decubitus ulcer prevention protocol Lines: TLC placed on 03/31/2025 Prophylaxis: Lovenox, pantoprazole Patient is critically ill with multiple organ failures due to severe sepsis in the setting of underlying hep C cirrhosis with severe lactic acidosis has a very poor prognosis, explained this to his sisters. Critical care time spent is about 45 minutes on close hemodynamic monitoring, vasopressor management, sedation management, ventilator management, managing his lactic acidosis, reviewing labs and images at this time is excluding any procedural time Quality Stroke Does the patient have a stroke diagnosis?: No VTE Prior VTE?: No VTE Risk Level:: Medical - moderate - high VTE Device Contraindication: N/A - Device Ordered VTE Drug Contraindication: N/A - Med Ordered
[2025-03-31 14:19] LABS: Venous Blood Gas Refer to POC result
--- NOTE | 2025-03-31 14:38 | MHC.CM.PN ---
Pt intubated and unable to participate in assessment: Pt reportedly independent w/care needs, resides with family and has no DME or apparent services. CM to follow up once pt is medically stable and participatory in conversation. No HCP on file
[2025-03-31] MEDS: Fluconazole in NaCl,Iso-Osm 400 MG/200 ML PIGGYBACK 100 MG IV (16:09)
--- NOTE | 2025-03-31 17:48 | PC.NURSE ---
Assumed care at 0700. Upon initial assessment, pt scored as 1:1 on previous shift's acuity tool. Pt intubated and on multiple vasoactive drips, sedation, bicarb, electrolyte replacement. Upon performing inline suction, secretions noted to be dark brown/grayson, almost black. RT obtained specimen to be sent to lab. Pt?s urine output decreased to approx 10mL/hr by 1000. MD made aware. Bladder scan showed 288mL. MD made aware. By end of shift, urine output lessened further. MD made aware. MD updated family of pt?s health status at bedside. Pt?s mother/primary contact provided a list of approived visitors. Family wishes to not have patient ?overwhelmed with people.? Pt?s son?s contact info added to chart. Pt repositioned q2hr as tolerated. Fall & safety precautions in place. See MAR and assessments for further details.
[2025-03-31 18:17] LABS: Venous Blood Gas Refer to POC result
[2025-03-31 18:18] LABS: VBG HCO3 19 mmol/L (22-26); VBG O2 % Saturation 52.0 %
[2025-03-31 18:31] LABS: Alanine Aminotransferase 10 U/L (0-40); Albumin Level 4.3 g/dL (3.5-5.0); Alkaline Phosphatase < 9 U/L (39-117); Anion Gap 37 (12-20); Aspartate Amino Transferase 83 U/L (5-37); Blood Urea Nitrogen 11 mg/dL (9-16); Calcium 7.6 mg/dL (8.4-10.2); Carbon Dioxide 19 mmol/L (22-29); Chloride 91 mmol/L (96-108); Creatinine Clr Calc Pharmacy 33.5; Estimated Glomerular Filt Rate 27; Magnesium 2.0 mg/dL (1.6-2.6); Potassium 3.7 mmol/L (3.3-5.1); Sodium 143 mmol/L (135-145); Total Protein 5.6 g/dL (6.5-8.0)
[2025-03-31] MEDS: Norepinephrine Bitartrate/NS 16 MG/250 ML PLAST..BAG 30.71 MG IVCONT (23:57)
[2025-04-01] VITALS (44 sets, daily range): BP systolic 88–123; BP diastolic 49–82; PULSE 81–121; RESP 16–29; TEMP 34.3–37.6; O2SAT 90–100; BMI 26.7
[2025-04-01] LABS: VBG HCO3 17 mmol/L (22-26); VBG O2 % Saturation 61.0 %
[2025-04-01 00:01] LABS: Venous Blood Gas Refer to POC result
[2025-04-01 00:11] LABS: INTERNATIONAL NORM RATIO 3.6 (0.9-1.1); Prothrombin Time 41.8 SEC (10.9-12.4)
[2025-04-01 00:15] LABS: Alanine Aminotransferase 11 U/L (0-40); Albumin Level 4.0 g/dL (3.5-5.0); Alkaline Phosphatase < 9 U/L (39-117); Anion Gap 40 (12-20); Aspartate Amino Transferase 124 U/L (5-37); Blood Urea Nitrogen 12 mg/dL (9-16); Calcium 7.4 mg/dL (8.4-10.2); Carbon Dioxide 17 mmol/L (22-29); Chloride 89 mmol/L (96-108); Creatinine Clr Calc Pharmacy 30.0; Estimated Glomerular Filt Rate 24; Potassium 4.0 mmol/L (3.3-5.1); Sodium 142 mmol/L (135-145); Total Protein 5.4 g/dL (6.5-8.0)
[2025-04-01 01:49] LABS: GASOB Int Neg Ctl Valid YES; GASOB Int Pos Ctl Valid YES; GASOB Lot 20542
--- NOTE | 2025-04-01 02:13 | PC.NURSE ---
Addendum entered by Pérez Agrawal RN 04/01/25 06:05: GLUCOSE FROM AM LAB DRAW= 47....D50% 25GRAMS IV PUSH GIVEN PER PROVIDER...25 LATER...POC GLUCOSE VIA FINGERTIP= 56....POC GLUCOSE VIA LINE DRAW= 155...AM INR= 1.8 PTT= 103.9...PROVIDER AWARE..AM PLATELETS= 26...REMAINS ANURIC Addendum entered by Pérez Agrawal RN 04/01/25 04:35: OG-TUBE ASPIRATE GUIAC POSITIVE..F/U INR AT HS= 3.6...PROTONIX 80MH IV PUSH GIVEN AND PROTONIX DRIP STARTED 8 MG/HR...Kcentra 2000 UNITS ORDERED BY PROVIDER..CONFIRMED WITH PA THAT PATIENT IN NOT ON COUMADIN..PER PROVIDER TO GIVE Kcentra 2000 units as ORDERED D/T INR/GUIAC (+) ASPIRATE AND PLANNED PLACEMENT OF DIALYSIS CATHETER IN IR THIS AM...Kcentra 2000 UNITS INFUSED OVER 10 ORDERED W/O INCIDENT..REMAINS ANURIC Original Note: CARE ASSUMED 7PM..REMAINS INTUBATED/VCV VENT SUPPORT...FIO2 WEANED FROM 50% TO 30% WITH SAO2 REMAINING 96%..SEDATED WITH PROPOFOL DRIP..PROPOFOL WEANED FROM 30 TO 20MCG/KG/MIN....LEVOPHED TITRATED FROM 0.42 TO 0.46 MCG/KG/MIN....LEVOPHED DRIP CHANGED TO X2 CONCENTRATION (16MG/250ML) PER PROVIDER...CONTINUES VASOPRESSIN 0.04 UNITS/MIN...BICARB DRIP 100 CC/HR....SINUS TACH HR 120-124 AT 7PM...T-MAX 100.8-100.9...ICE PACKS APPIED AND TEMP DECREASED TO 99.7 CORE...REMAINS ESSENTIALLY ANURIC PER SHIFT REPORT...BLADDER SCANNED 497ML....ALEXANDER IRRIGATED W/O DIFFICULTY AND IRRIGANT RETURNED...PER PROVIDER ALEXANDER CATHETER CHANGED TO 16FR ALEXANDER..NO OUTPUT OBTAINED UPON INSERTION..PER PROVIDER BLADDER SCANS MEASURING PROBABLE ASCITES..CURRENT FLUID BALANCE SINCE ADMISSION APPROX 10.7 LITERS (+)..ABDOMEN MORE DISTENDED THAN UPON ADMISSION PER PROVIDER..OG-TUBE WITH SCANT GREEN-BLACK ASPIRATE...
[2025-04-01] MEDS: Pantoprazole Sodium 80 MG in 0.9 % Sodium Chloride 80 ML 10 MG IV (03:14)
[2025-04-01] MEDS: Hum Prothrombin Cplx(PCC)4Fact 2,000 UNIT in Container,Empty 0 ML 480 UNIT IV (03:44)
[2025-04-01 04:40] LABS: VBG HCO3 14 mmol/L (22-26); VBG O2 % Saturation 54.0 %
[2025-04-01 05:03] LABS: Venous Blood Gas Refer to POC result
[2025-04-01 05:09] LABS: INTERNATIONAL NORM RATIO 1.8 (0.9-1.1); Prothrombin Time 20.6 SEC (10.9-12.4)
[2025-04-01 05:20] LABS: Hematocrit 24.5 % (42.0-52.0); Hemoglobin 8.4 g/dl (14.0-18.0); Mean Corpuscular HGB Conc 34.3 g/dl (31.0-36.0); Mean Corpuscular Hemoglobin 39.6 pg (27.0-33.0); NRBC Abs Auto 0.240 X10*3/uL (0.0-0.012); Red Blood Count 2.12 X10*6/uL (4.60-5.80)
[2025-04-01 05:21] LABS: Mean Corpuscular Volume 115.6 fL (80.0-98.0); NRBC Pct Auto 7.6 /100WBC (0.0-0.2); Platelet Count 26 X10*3/uL (160-400); WBC ABN SCTR FOR CBC 1; White Blood Count 3.1 X10*3/uL (4.8-10.8)
[2025-04-01 05:26] LABS: Alanine Aminotransferase 12 U/L (0-40); Albumin Level 3.6 g/dL (3.5-5.0); Alkaline Phosphatase < 9 U/L (39-117); Anion Gap 50 (12-20); Aspartate Amino Transferase 172 U/L (5-37); Blood Urea Nitrogen 13 mg/dL (9-16); Calcium 7.2 mg/dL (8.4-10.2); Carbon Dioxide 13 mmol/L (22-29); Chloride 88 mmol/L (96-108); Creatinine Clr Calc Pharmacy 27.8; Estimated Glomerular Filt Rate 22; Magnesium 2.2 mg/dL (1.6-2.6); Potassium 4.6 mmol/L (3.3-5.1); Sodium 146 mmol/L (135-145); Total Protein 5.1 g/dL (6.5-8.0)
[2025-04-01 05:32] LABS: Partial Thromboplastin Time 103.9 SEC (26.7-34.1)
[2025-04-01 05:46] LABS: Band Neutrophils Percent 20 % (3-5); Eosinophils Percent Manual 1 % (0-4); Lymphocytes Absolute Manual 0.7 X10*3/uL (1.2-4.9); Lymphocytes Percent Manual 24 % (20-40); Metamyelocytes Absolute 0.1 X10*3/uL; Metamyelocytes Percent 4 %; Monocytes Absolute Manual 0.1 X10*3/uL (0.1-1.2); Monocytes Percent Manual 2 % (2-11); Neutrophils Absolute Manual 2.1 X10*3/uL (2.0-8.3); Neutrophils Percent Manual 49 % (45-73)
[2025-04-01] MEDS: Vasopressin 20 UNIT/100 ML INFUS..BTL 12 UNIT IVCONT ×2 (05:46→13:27)
[2025-04-01 05:48] LABS: Macrocytosis 1+ (5-14) /OIF; RBC Morphology NOTED
[2025-04-01] MEDS: Sodium Bicarbonate 8.4% 150 MEQ in Dextrose 5 % 850 ML 100 MEQ IV ×2 (05:49→14:47)
[2025-04-01 05:50] LABS: Acanthocytes 1+ (0-2) /OIF; Basophilic Stippling 1+ (0-2) /OIF; Burr Cells 2+ (3-5) /OIF; Tear Drop Cells 2+ (3-5) /OIF
[2025-04-01 05:51] LABS: Dohle Bodies PRESENT; Smudge Cells PRESENT; Toxic Granulation PRESENT; Toxic Vacuolation PRESENT
[2025-04-01] MEDS: Norepinephrine Bitartrate/NS 16 MG/250 ML PLAST..BAG 30.71 MG IVCONT ×2 (05:51→13:27)
[2025-04-01 06:04] LABS: Glucose, Whole Blood 155 mg/dL (60-115)
[2025-04-01 06:04] LABS: Glucose, Whole Blood 56 mg/dL (60-115)
[2025-04-01] MEDS: Calcium Gluconate/NaCl,Iso-Osm 1 GM/50 ML PLAST..BAG IV (06:39)
--- NOTE | 2025-04-01 07:09 | P.ACPN_ITS ---
Advanced Care Planning Note Advanced Care Planning Note Discussed with: family member(s) (MOM Ling Wilde) Time spent (in minutes): 15 Narrative: spoke with her about his clinical condition this am, she is aware of low plaletes, high INR, fluid retention and multiorgan failure. She verbally authorized for all transfussion of blood products needed, HD cath placement and HD sessions as needed. Risk of transfussing blood products vs benefits, as well as risk of procedures were discussed in [place] (her [place] language) she does speak syrian and was able to verbalize back to ISAC Starkey all the above Concents signed, plts ordered, FFP (to be held and given before cath placement) and all paperwork in place. If any questions Mrs Dubon will come to see the patient later today. Case and plan discussed with Dr Villalobos this am Total time 15 min Problems Discussed (1) Acute encephalopathy: (2) Septic shock: (3) Acute kidney injury: (4) Acute lactic acidosis: (5) Sepsis with acute liver failure and septic shock:
[2025-04-01 07:43] LABS: pH Peritoneal Fluid 7.44
[2025-04-01 07:44] LABS: Albumin Peritoneal Fluid 0.6
--- NOTE | 2025-04-01 07:50 | PM.CCPN ---
Subjective Subjective Date of Service: 04/01/25 Critical Care Time (minutes): 60 Physical Exam Vital Signs: Vital Signs: Last Vital Signs Temp 99.3 F 04/01/25 07:00 Pulse 113 H 04/01/25 07:00 Resp 28 H 04/01/25 07:00 BP 96/49 L 04/01/25 07:00 Pulse Ox 95 04/01/25 07:47 O2 Del Method Mechanical Ventil ation 04/01/25 07:00 O2 Flow Rate 12 03/31/25 02:00 FiO2 40 04/01/25 07:47 BMI result Body Mass Index 26.7 Const: Other: intubated, sedated; no appreciable spontaneous movements HEENT: Head: Yes normal to inspection, Yes normocephalic and Yes atraumatic Eyes: General: appearance normal, both eyes and all related structures Neck: Neck: Yes normal visual inspection, Yes full ROM, Yes no meningeal signs, Yes trachea midline and Yes supple Chest: Chest palpation & inspection: normal inspection of the chest Resp: Other: no appreciable overt rales, rhonchi, wheezing Effort & Inspection: normal respiratory effort Cardio: Rate: tachycardic Rhythm: regular rhythm GI: Other: appreciable abdominal distention, though soft, compressible Skin: Other: appreciable jaundice throughout Neuro: General: tone normal and no meningeal signs Extrem: Other: appreciable 1+ pitting edema to bilateral shins General: Yes capillary refill normal Psych: Other: unable to assess Objective Data Labs 04/01/25 04:30 04/01/25 04:30 Labs: Laboratory Results - last 24 hr 03/30/25 03/31/25 03/31/25 15:25 11:06 11:08 WBC 3.1 L RBC 2.28 L Hgb 9.0 L Hct 26.2 L MCV 114.9 H MCH 39.5 H MCHC 34.4 RDW 16.9 H Plt Count 57 L D MPV 11.3 Immature Gran % (Auto) Cancelled Neut % (Auto) Cancelled Lymph % (Auto) Cancelled [place] % (Auto) Cancelled Eos % (Auto) Cancelled Baso % (Auto) Cancelled Lymph # (Auto) Cancelled [place] # (Auto) Cancelled Eos # (Auto) Cancelled Baso # (Auto) Cancelled Abs Immat Gran (auto) Cancelled Absolute Neuts (auto) Cancelled Absolute Nucleated RBC 0.060 H Nucleated RBC % (auto) 2.0 H Neutrophils % (Manual) 63 Band Neutrophils % 19 H Lymphocytes % (Manual) 16 L Monocytes % (Manual) 2 Eosinophils % (Manual) Metamyelocytes % Abs Neuts (Manual) 2.5 Lymphocytes # (Manual) 0.5 L Monocytes # (Manual) 0.1 Metamyelocytes # Nucleated RBCs 3 H Smudge Cells Toxic Granulation Toxic Vacuolation PRESENT Dohle Bodies PRESENT Platelet Estimate DECREASED Large Platelets PRESENT Plt Morphology Comment NOTED RBC Morphology NOTED Basophilic Stippling Macrocytosis 2+ (15-30) Pappenheimer Bodies PRESENT Tear Drop Cells [place] Cells Acanthocytes (Spur) PT INR APTT VBG pH 7.37 VBG pCO2 30 VBG pO2 39 VBG HCO3 17 L VBG O2 Saturation 54.0 VBG Base Excess -6.3 Sodium 143 Potassium 3.4 Chloride 94 L Carbon Dioxide 17 L Anion Gap 35 H BUN 9 Creatinine 2.03 H Estim Creat Clear Calc 40.4 Estimated GFR 34 POC Glucose Random Glucose 153 H Calcium 7.8 L Phosphorus 2.6 L Magnesium 2.0 Total Bilirubin 3.4 H AST 63 H ALT 11 Alkaline Phosphatase 9 L Total Protein 5.6 L Albumin 4.0 Peritoneal pH 7.44 Peritoneal Tot Protein 1.1 Peritoneal Albumin 0.6 Peritoneal LDH 66 Peritoneal Glucose 64 Peritoneal Amylase 19 Gastric Occult Blood 03/31/25 03/31/25 03/31/25 18:09 18:15 23:49 WBC RBC Hgb Hct MCV MCH MCHC RDW Plt Count MPV Immature Gran % (Auto) Neut % (Auto) Lymph % (Auto) [place] % (Auto) Eos % (Auto) Baso % (Auto) Lymph # (Auto) [place] # (Auto) Eos # (Auto) Baso # (Auto) Abs Immat Gran (auto) Absolute Neuts (auto) Absolute Nucleated RBC Nucleated RBC % (auto) Neutrophils % (Manual) Band Neutrophils % Lymphocytes % (Manual) Monocytes % (Manual) Eosinophils % (Manual) Metamyelocytes % Abs Neuts (Manual) Lymphocytes # (Manual) Monocytes # (Manual) Metamyelocytes # Nucleated RBCs Smudge Cells Toxic Granulation Toxic Vacuolation Dohle Bodies Platelet Estimate Large Platelets Plt Morphology Comment RBC Morphology Basophilic Stippling Macrocytosis Pappenheimer Bodies Tear Drop Cells She Cells Acanthocytes (Spur) PT 41.8 H D INR 3.6 H APTT VBG pH 7.36 VBG pCO2 33 VBG pO2 40 VBG HCO3 19 L VBG O2 Saturation 52.0 VBG Base Excess -4.9 Sodium 143 142 Potassium 3.7 4.0 Chloride 91 L 89 L Carbon Dioxide 19 L 17 L Anion Gap 37 H 40 H BUN 11 12 Creatinine 2.45 H 2.73 H Estim Creat Clear Calc 33.5 30.0 Estimated GFR 27 24 POC Glucose Random Glucose 132 H 106 Calcium 7.6 L 7.4 L Phosphorus 3.0 Magnesium 2.0 Total Bilirubin 3.8 H 4.3 H AST 83 H 124 H ALT 10 11 Alkaline Phosphatase < 9 L < 9 L Total Protein 5.6 L 5.4 L Albumin 4.3 4.0 Peritoneal pH Peritoneal Tot Protein Peritoneal Albumin Peritoneal LDH Peritoneal Glucose Peritoneal Amylase Gastric Occult Blood 03/31/25 04/01/25 04/01/25 23:57 01:36 04:30 WBC 3.1 L RBC 2.12 L Hgb 8.4 L Hct 24.5 L MCV 115.6 H MCH 39.6 H MCHC 34.3 RDW 17.3 H Plt Count 26 L D MPV 12.0 Immature Gran % (Auto) Cancelled Neut % (Auto) Cancelled Lymph % (Auto) Cancelled [place] % (Auto) Cancelled Eos % (Auto) Cancelled Baso % (Auto) Cancelled Lymph # (Auto) Cancelled [place] # (Auto) Cancelled Eos # (Auto) Cancelled Baso # (Auto) Cancelled Abs Immat Gran (auto) Cancelled Absolute Neuts (auto) Cancelled Absolute Nucleated RBC 0.240 H Nucleated RBC % (auto) 7.6 H Neutrophils % (Manual) 49 Band Neutrophils % 20 H Lymphocytes % (Manual) 24 Monocytes % (Manual) 2 Eosinophils % (Manual) 1 Metamyelocytes % 4 Abs Neuts (Manual) 2.1 Lymphocytes # (Manual) 0.7 L Monocytes # (Manual) 0.1 Metamyelocytes # 0.1 Nucleated RBCs 15 H Smudge Cells PRESENT Toxic Granulation PRESENT Toxic Vacuolation PRESENT Dohle Bodies PRESENT Platelet Estimate DECREASED Large Platelets Plt Morphology Comment NORMAL RBC Morphology NOTED Basophilic Stippling 1+ (0-2) Macrocytosis 1+ (5-14) Pappenheimer Bodies PRESENT Tear Drop Cells 2+ (3-5) Xenia Cells 2+ (3-5) Acanthocytes (Spur) 1+ (0-2) PT 20.6 H D INR 1.8 H APTT 103.9 H* VBG pH 7.33 VBG pCO2 32 VBG pO2 44 VBG HCO3 17 L VBG O2 Saturation 61.0 VBG Base Excess -7.2 Sodium 146 H Potassium 4.6 Chloride 88 L Carbon Dioxide 13 L Anion Gap 50 H BUN 13 Creatinine 2.95 H Estim Creat Clear Calc 27.8 Estimated GFR 22 POC Glucose Random Glucose 47 L* Calcium 7.2 L Phosphorus 5.4 H Magnesium 2.2 Total Bilirubin 4.3 H AST 172 H ALT 12 Alkaline Phosphatase < 9 L Total Protein 5.1 L Albumin 3.6 Peritoneal pH Peritoneal Tot Protein Peritoneal Albumin Peritoneal LDH Peritoneal Glucose Peritoneal Amylase Gastric Occult Blood POSITIVE 04/01/25 04/01/25 04/01/25 04:36 05:55 06:00 WBC RBC Hgb Hct MCV MCH MCHC RDW Plt Count MPV Immature Gran % (Auto) Neut % (Auto) Lymph % (Auto) [place] % (Auto) Eos % (Auto) Baso % (Auto) Lymph # (Auto) [place] # (Auto) Eos # (Auto) Baso # (Auto) Abs Immat Gran (auto) Absolute Neuts (auto) Absolute Nucleated RBC Nucleated RBC % (auto) Neutrophils % (Manual) Band Neutrophils % Lymphocytes % (Manual) Monocytes % (Manual) Eosinophils % (Manual) Metamyelocytes % Abs Neuts (Manual) Lymphocytes # (Manual) Monocytes # (Manual) Metamyelocytes # Nucleated RBCs Smudge Cells Toxic Granulation Toxic Vacuolation Dohle Bodies Platelet Estimate Large Platelets Plt Morphology Comment RBC Morphology Basophilic Stippling Macrocytosis Pappenheimer Bodies Tear Drop Cells She Cells Acanthocytes (Spur) PT INR APTT VBG pH 7.33 VBG pCO2 26 VBG pO2 42 VBG HCO3 14 L VBG O2 Saturation 54.0 VBG Base Excess -10.3 Sodium Potassium Chloride Carbon Dioxide Anion Gap BUN Creatinine Estim Creat Clear Calc Estimated GFR POC Glucose 56 L* 155 H Random Glucose Calcium Phosphorus Magnesium Total Bilirubin AST ALT Alkaline Phosphatase Total Protein Albumin Peritoneal pH Peritoneal Tot Protein Peritoneal Albumin Peritoneal LDH Peritoneal Glucose Peritoneal Amylase Gastric Occult Blood Microbiology Microbiology Results: Microbiology 03/31/25 12:22 Tracheal Aspirate Gram Stain - Final 03/31/25 12:22 Tracheal Aspirate Sputum Culture - Preliminary Culture in progress. 03/30/25 15:25 Abdominal Fluid Gram Stain - Final 03/30/25 15:25 Abdominal Fluid Routine Culture - Preliminary Acinetobacter baumannii 03/30/25 15:25 Abdominal Fluid Anaerobic Culture - Preliminary Culture in progress. 03/30/25 Unknown Urine clean catch - Clean Catch Midstream Urine Culture - Preliminary Culture in progress. 03/30/25 14:35 Blood - Venous Blood Culture - Preliminary Prelim: GNR Gram Stain only 03/30/25 14:35 Blood - Venous Blood Culture - Preliminary Prelim: GNR Gram Stain only Progress Note: A&P Assessment and plan (1) Spontaneous bacterial peritonitis: Status: Acute (2) Septic shock: Status: Acute (3) Acute hypoxic respiratory failure: Status: Acute Plan Patient is a 59 Y M w/ alcohol misuse, prior IVDU c/b hepatitis C presenting to ED on 03/30 w/ abdominal pain, found to be febrile, hypotensive; ED work-up suggestive of infectious colitis, R pyelonephritis, and ascites; ICU course c/b acute hypoxic respiratory failure, subsequently intubated N: intubated, sedated w/ propofol gtt, wean as tolerated CV: profound septic shock, norepinephrine gtt, vasopressin gtt, wean as tolerated, stress-dose steroids R: acute hypoxic respiratory failure, intubated 03/30 GI: alcohol misuse, HCV c/b cirrhosis, c/f spontaneous bacterial peritonitis : acute renal insufficiency, c/f renal failure; profound lactic acidosis, bicarbonate gtt, nephrology consult for possible hemodialysis H: pancytopenia, transfuse as needed ID: septic shock, likely d/t spontaneous bacterial peritonitis, ascitic Cx w/ acinetobacter, meropenem, empiric vanc/fluconazole E: to monitor hypo-/hyper-glycemia S: to provide patient mother w/ updates, specifically critical/guarded clinical status Quality Stroke Does the patient have a stroke diagnosis?: No VTE Prior VTE?: No VTE Risk Level:: Medical - moderate - high VTE Device Contraindication: N/A - Device Ordered VTE Drug Contraindication: Treatment Not Tolerated
[2025-04-01] MEDS: Hydrocortisone Sod Succ/PF 100 MG VIAL 50 MG IVPUSH ×2 (08:12→13:26)
[2025-04-01] MEDS: vancomycin/NS 2,000 MG/500 ML PLAST..BAG 250 MG IV (08:13)
[2025-04-01 08:25] LABS: HIV Num 1 0.05 S/CO (0.00-0.99)
[2025-04-01 08:27] LABS: HBc Num1 0.33 S/CO (0.00-0.79)
[2025-04-01] MEDS: Thiamine HCL 100 MG in 0.9 % Sodium Chloride 100 ML 202 MG IV (08:30)
[2025-04-01 08:32] LABS: Glucose, Whole Blood 71 mg/dL (60-115)
[2025-04-01] MEDS: Chlorhexidine Gluc Oral Rinse 15 ML MOUTHWASH BUCCAL ×2 (08:37→14:59)
[2025-04-01 09:16] LABS: Reflex Lactate? Lactic Acid Added
--- NOTE | 2025-04-01 10:00 | PM.CNNEP ---
History of Present Illness Reason for Consult Consult date: 04/01/25 Chief Complaint Chief complaint: Acute Septic Shock History of Present Illness Narrative: 59 y/o male to female transgender person with new diagnosis of Hep C ~4 months ago, daily alcohol use 12 nips daily, hx heroin use (last use 10 years ago per chart). 03/30 [facility] to [facility] sudden onset of fever, chills, severe RLQ abdominal pain with some radiation to the left and right flank. Nephrology consulted for lactic acidosis requiring emergent HD. lactic acid 31 this a.m. patient has SBP. On multiple vasopressors. creatinine 2.95 this a.m.; baseline on 03/30 was 0.99. serum bicarb is 13 on sodium bicarbonate drip. patient is intubated and sedated on two vasopressors this a.m. Review of Systems Review of Systems Yes unobtainable due to endotracheal tube PMFSH Past Medical History Medical History Heroin abuse Depression Hepatitis C Gynecomastia Surgical History Surgical History History of lumpectomy of left breast (12/19/24) Hx of colonoscopy (~2018) Social History Social History Household Members: Unknown / Unable to assess Housing: Unknown / Unable to assess Are you a primary care companion to a significant other at home: No Do you presently have visiting nurse or other home services: No Patient Tobacco Use Status: Former Tobacco user Smoked in Last 30 Days: No Patient Interested in Nicotine Replacement: No Patient Given Instructions on How to Stop Smoking: No Second Hand Smoke Exposure: No Use of substances other than those prescribed or required for medical reasons: No Currently Displaying Signs/Symptoms of Drug Intoxication Withdrawal: No Have you been hit, kicked, punched, or otherwise hurt by someone within the past year? If so, by whom?: No Do you feel safe in your current relationship?: No Is there a partner from a previous relationship who is making you feel unsafe now?: No Are you made to feel afraid or neglected: No Advance Directives: No Advance Directives Information Provided: No Do you have a plan to hurt others: No Plan Recently lost weight without trying: No Eating poorly because of decreased appetite: No Nutrition Risks: No Nutritional Risk Poor oral hygiene: No Meds Allergies Allergy/AdvReac Type Severity Reaction Status Date / Time No Known Allergies Allergy Verified 03/30/25 10:12 Active Medications: Current Medications Chlorhexidine Gluconate (Chlorhexidine Gluc Oral Rinse 15 Ml Mouthwash) 15 ml BUCCAL TID LORI Last Admin: 04/01/25 08:37 Dose: 15 ml Heparin Sodium (Porcine) (Heparin Sodium,Porcine 5,000 Unit/Ml Vial) 5,000 unit INTRACATH ONCE ONE Stop: 04/02/25 11:01 Hydrocortisone Sodium Succinate (Hydrocortisone Sod Succ/Pf 100 Mg Vial) 50 mg IVPUSH Q6H LORI Last Admin: 04/01/25 08:12 Dose: 50 mg Sodium Bicarbonate 150 meq/ (Dextrose) 1,000 mls @ 100 mls/hr IV .Q10H LORI Last Admin: 04/01/25 05:49 Dose: 100 mls/hr Vasopressin (Vasostrict) 20 unit in 100 mls @ 12 mls/hr IVCONT .Q8H20M LORI; Protocol Last Admin: 04/01/25 05:46 Dose: 0.04 unit/min, 12 mls/hr Thiamine HCl 100 mg/ Sodium (Chloride) 101 mls @ 202 mls/hr IV DAILY LORI Last Infusion: 04/01/25 09:23 Dose: Infused Folic Acid 1 mg/ Sodium (Chloride) 50.2 mls @ 100.4 mls/hr IV DAILY [facility] Last Infusion: 04/01/25 10:00 Dose: Infused Propofol (Diprivan) 1,000 mg in 100 mls @ 0 mls/hr IVCONT .Q0M LORI; Protocol Last Admin: 04/01/25 10:08 Dose: 40 mcg/kg/min, 16.99 mls/hr Fluconazole (Diflucan) 200 mg in 100 mls @ 100 mls/hr IV Q24H LORI Norepinephrine Bitartrate (Levophed) 16 mg in 250 mls @ 0 mls/hr IVCONT .Q0M LORI; Protocol Last Admin: 04/01/25 05:51 Dose: 0.46 mcg/kg/min, 30.71 mls/hr Vancomycin HCl 750 mg/ Sodium (Chloride) 265 mls @ 265 mls/hr IV Q24H LORI Meropenem (Meropenem 1 Gm Vial) 1 gm IVPUSH Q12H [facility] Last Admin: 04/01/25 08:12 Dose: 1 gm Pantoprazole Sodium (Pantoprazole Sodium 40 Mg/10 Ml Vial) 40 mg IVPUSH DAILY@0630 [facility] Pharmacy Consult (Consult Rx Vancomycin Dosing) 1 each MISCELLANE DAILY PRN PRN Reason: Consult order Home Medications ?Medication ?Instructions ?Recorded ?Confirmed ?Last Taken ?Type No Known Home Meds 03/30/25 03/30/25 Unknown History Physical Exam Vital Signs: Last Vital Signs Temp 98.2 F 04/01/25 11:20 Pulse 113 H 04/01/25 11:20 Resp 23 H 04/01/25 11:20 BP 97/63 04/01/25 11:20 Pulse Ox 94 04/01/25 11:18 O2 Del Method Mechanical Ventilation 04/01/25 10:00 O2 Flow Rate 12 03/31/25 02:00 FiO2 40 04/01/25 11:18 BMI result Body Mass Index 26.7 Const Other: intubated/sedated. Resp Other: on ventilator Effort & Inspection: normal respiratory effort Auscultation: clear to auscultation bilaterally Cardio Rate: tachycardic Rhythm: regular rhythm Heart sounds: S1 normal heart sound present and S2 normal heart sound present GI Palpation (GI): Firmness to palpation present (GI) (somewhat firm, mild distension.) and nontender Skin Rashes: no rashes Extrem General: No edema Results Lab Results 04/01/25 04:30 04/01/25 11:08 Lab results: Chemistry 03/30/25 03/30/25 03/31/25 12:15 20:33 00:03 Sodium 138 141 140 Potassium 3.4 3.0 L 3.7 D Carbon Dioxide 21 L 7 L* D 10 L* D BUN 9 9 8 L Creatinine 0.99 1.45 H 1.58 H Calcium 8.9 D 8.6 7.9 L D Phosphorus 5.3 H 03/31/25 03/31/25 03/31/25 04:34 11:06 18:09 Sodium 143 143 143 Potassium 3.0 L 3.4 3.7 Carbon Dioxide 15 L 17 L 19 L BUN 9 9 11 Creatinine 1.75 H 2.03 H 2.45 H Calcium 7.5 L 7.8 L 7.6 L Phosphorus 4.3 2.6 L 3.0 03/31/25 04/01/25 04/01/25 23:49 04:30 11:08 Sodium 142 146 H Potassium 4.0 4.6 Carbon Dioxide 17 L 13 L BUN 12 13 Creatinine 2.73 H 2.95 H 3.16 H Calcium 7.4 L 7.2 L Phosphorus 5.4 H Hematology 03/30/25 03/30/25 03/31/25 11:33 20:33 04:34 WBC 5.0 2.0 L 2.6 L Hgb 11.7 L 9.4 L 9.0 L Plt Count 119 L D 94 L 85 L 03/31/25 04/01/25 11:06 04:30 WBC 3.1 L 3.1 L Hgb 9.0 L 8.4 L Plt Count 57 L D 26 L D Urinalysis 03/30/25 13:11 Urine Color DK YELLOW Urine Appearance Hazy Urine pH 5.5 Ur Specific [place] >= 1.030 H Urine Protein 100 (2+) H Urine Glucose (UA) 250 H Urine Ketones 15 Urine Blood Trace Urine Nitrite Positive H Ur Leukocyte Esterase Negative Urine RBC 0-2 Urine WBC 0-5 Ur Squamous Epith Cells 3-5 Hyaline Casts 3-5 Assessment and Plan (1) Acute kidney injury: Status: Acute (2) Lactic acid acidosis: Status: Acute Plan Severe lactic acidosis from SBP infection requiring emergent dialysis Will do longer 4 hour session today with low blood flow rate given elevated lactic acid ICU to place temporary HD catheter will run even for today given patient appears euvolemic and is on multiple pressors avoid nephrotoxins close I&O monitoring and blood pressure checks daily renal function and electrolyte studies Discussed with Dr Thomason Procedures Date of Service Date of Service: 04/01/25
--- NOTE | 2025-04-01 10:14 | MHC.CLN ---
PT MAY REQUIRE TF FOR NUTRITION SUPPORT R/T PROLONGED NPO STATUS PT IS INTUBATED AND SEDATED PT IS CURRENTLY NPO IF TF NEEDED; RECOMMEND JEVITY 1.2 AT MAX GOAL RATE 60ML/HR WITH 240ML FREE WATER FLUSHES Q 6 HRS TO PROVIDE 1728KCALS (2177KCALS WITH SEDATION; 25KCALS/KG), 80G PROTEIN (.9G/KG), 2122ML TOTAL WATER FROM FORMULA AND FLUSHES (24MLKG) MONITOR TOLERANCE AND LYTES FOLLOWING FOR DIET ADVANCEMENT SEE FULL ASSESSMENT
--- NOTE | 2025-04-01 10:39 | PHA.PROG ---
Admission Date/Time: March 30, 2025 19:25 Indication: OTHER Serum Creatinine - Last 168 Hours 03/30/25 03/30/25 03/31/25 12:15 20:33 00:03 Creatinine 0.99 1.45 H 1.58 H 03/31/25 03/31/25 03/31/25 04:34 11:06 18:09 Creatinine 1.75 H 2.03 H 2.45 H 03/31/25 04/01/25 23:49 04:30 Creatinine 2.73 H 2.95 H Estimated CrCl and GFR - Last 168 Hours 03/30/25 03/30/25 03/31/25 12:15 20:33 00:03 Estim Creat Clear Calc 82.4 56.2 51.6 Estimated GFR > 60 50 45 03/31/25 03/31/25 03/31/25 04:34 11:06 18:09 Estim Creat Clear Calc 46.6 40.4 33.5 Estimated GFR 40 34 27 03/31/25 04/01/25 23:49 04:30 Estim Creat Clear Calc 30.0 27.8 Estimated GFR 24 22 Vancomycin Loading Dose: 1999 Current Vancomycin Dosing Regimen: 750 Vancomycin Monitoring using AUC goal of 400 - 600 range with trough as surrogate marker: 461 Date and Time for next Vancomycin Level to be drawn: 04/03 Pharmacist Comments on Vancomycin Plan: Vancomycin dosing will take advantage of [employer] as a clinical decision support tool that uses Bayesian modeling to calculate individual patient's pharmacokinetic parameters and forecast the patient's drug concentration time course with the target goal AUC 24 range of 400 - 600 mg/L/hr.
--- NOTE | 2025-04-01 10:53 | W.PM.CCHP ---
Procedures Date of Service Date of Service: 04/01/25 Central Line Placement Right Femoral: Consent for Procedure: Elective - informed consent obtained Time out performed: Yes Sterile Technique Used: Yes Patient placed on monitor/pulse ox: Yes prep: mask, gown, gloves and other Central line prep: Chlorhexidine scrub and sterile drapes applied Ultrasound used for placement: Yes Central line lumen inserted: double (HD catheter) Post procedure: sutured in place, good blood return, all ports aspirated, flushed, capped and sterile dressing applied Patient tolerated procedure: well Complications: none (of note, 3 attempts made in L IJ, though unable to pass wire, 3 attempts made L femoral vein, though also unable to pass wire, 1 attempt made R femoral successful)
[2025-04-01 11:40] LABS: Creatinine Clr Calc Pharmacy 27.4; Estimated Glomerular Filt Rate 20
[2025-04-01 12:10] LABS: Cancel Lactic Acid Canceled
[2025-04-01 12:25] LABS: Glucose, Whole Blood 40 mg/dL (60-115)
--- NOTE | 2025-04-01 12:25 | W.MHC.ACPN ---
Advanced Care Planning Note Advanced Care Planning Note Discussed with: family member(s) Time spent (in minutes): 60 Narrative: I introduced myself to Mr. Wilde's mother and sister; I offered updates and clarifications; we discussed Mr. Gays critical and guarded clinical status, specifically his multi-system organ failure including cardiovascular, respiratory, renal, and hepatic systems, which they expressed understanding; given Mr. Gays critical clinical status, we discussed CPR; Mr. Gays mother would like to continue with a family discussion tomorrow with Mr. Wilde's brothers as well Problems Discussed (1) Acute kidney injury: (2) Lactic acid acidosis:
[2025-04-01 12:58] LABS: Glucose, Whole Blood 102 mg/dL (60-115)
[2025-04-01] MEDS: Dextrose 10 % 1,000 ML 50 ML IVCONT (13:26)
[2025-04-01] MEDS: Norepinephrine Bitartrate/NS 32 MG/250 ML PLAST..BAG 18.72 MG IVCONT (14:53)
--- NOTE | 2025-04-01 15:08 | MHC.CM.PN ---
EMR REVIEWED . PT REMAINS IN ICU ON VENTILATORY SUPPORT. CM WILL CONTINUE TO FOLLOW.
[2025-04-01 16:01] LABS: Glucose, Whole Blood 80 mg/dL (60-115)
[2025-04-01 18:01] LABS: Venous Blood Gas Refer to POC result
[2025-04-01 18:01] LABS: VBG HCO3 22 mmol/L (22-26); VBG O2 % Saturation 53.0 %
[2025-04-01 18:11] LABS: Anion Gap 30 (12-20); Blood Urea Nitrogen 5 mg/dL (9-16); Calcium 7.0 mg/dL (8.4-10.2); Carbon Dioxide 20 mmol/L (22-29); Chloride 93 mmol/L (96-108); Creatinine Clr Calc Pharmacy 66.2; Estimated Glomerular Filt Rate 56; Magnesium 2.2 mg/dL (1.6-2.6); Potassium 4.9 mmol/L (3.3-5.1); Sodium 138 mmol/L (135-145)
--- NOTE | 2025-04-01 18:39 | PC.NURSE ---
Assumed care at 0700 - pt remains intubated and sedated. No sedation vacation per MD. Dialysis line placed to right fem by foil cutter. Dilaysis preformed at bedside without complications. Pt continuing to require pressor support. Care ongoing.
[2025-04-01 19:51] LABS: Glucose, Whole Blood 58 mg/dL (60-115)
[2025-04-01 20:30] LABS: Fibrinogen 211 MG/DL (259-690); INTERNATIONAL NORM RATIO 2.5 (0.9-1.1); PTT Heparin Drip 101.4 SEC (53-77.9); Prothrombin Time 29.2 SEC (10.9-12.4)
--- NOTE | 2025-04-01 20:35 | PC.NURSE ---
Addendum entered by Pérez Agrawal RN 04/01/25 22:07: patient cardiac arrested and before 12-lead ekg able to be obtained Addendum entered by Pérez Agrawal RN 04/01/25 21:56: patient belongings taken home by son mahin ..for post-mortem care and to transport to [facility] via [facility] stretcher...family to [facility] 04/02/25 with desired home Addendum entered by Pérez Agrawal RN 04/01/25 21:12: [facility] notified of expiration at 20:40 ... kasandra from [facility] stated case/referral declined...case # [id number] Original Note: CARE ASSUMED 7PM..REMAINED INTUBATED/VCV VENT SUPPORT..SEDATED WITH PROPOFOL DRIP...LEVOPHED X4 CONCENTRATION 0.46 MCG/KG/MIN...VASOTEC 0.04 UNITS/MIN...BICARB DRIP 100 CC/HR AND D10% 50 CC/HR...BP STABLE INITIALLY..S.TACH HR 100'S WITH WIDENING QRS..REMAINED ANURIC...ANASARCA...TORSO AND LEGS MOTTLED AND COLD....BRADUCARDIC 19:35 TO PULSELESS AGONAL RHYTHM..CODE BLUE CALLED..SEE CODE SHEET...PATIENT PRONOUNCED BY ICU MOBILE [employer] VEHICLE OPERATOR AT 20:08...FAMILY AT BEDSIDE
--- NOTE | 2025-04-01 20:46 | PM.DDS ---
Discharge Sum: Prov Provider Primary care physician: Unknown Physician Admitting clinician: Bharath Aguero Attending physician on admission: Jose Villalobos Consults: 03/30/25 19:25 Consult to Gastroenterology Routine Consulting Provider: Geri Ramsey Reason for consultation: acute on chronic hepatitis Has provider been notified: No 04/01/25 07:59 Consult to Nephrology Stat Consulting Provider: [facility] Reason for consultation: Lactic Acidosis, ?Emergent Dialysis Pronouncing clinician: Eligio Corona Discharge Sum: Diag PCOD Cause of : Cardiac arrest Contributing Factors (1) Septic shock: (2) Sepsis with acute liver failure and septic shock: (3) Acute kidney injury: (4) Lactic acid acidosis: (5) Spontaneous bacterial peritonitis: (6) Acute hypoxic respiratory failure: (7) Hepatitis C: (8) Colitis: Discharge Sum: Summary Date and Time Date of admission: 03/30/25 19:25 Date of : 04/01/25 Time of : 20:08 Summary Details: ?The patient is a 59-year-old male with a past medical history of alcohol abuse, prior IV drug use ( 10 years older), hepatitis-C, and depression who presented to emergency department on 03/30/2025 with complaints of abdominal pain, found to be febrile, hypotensive, ED workup suggestive of infectious colitis,? possible right pyelonephritis and? ascites.? Patient admitted to ICU due to? septic shock requiring pressors.? Upon admission to the ICU? patient requiring emergent intubation due to acute hypoxic respiratory failure due to aspiration.? ?ICU course further complicated with? worsening renal failure? and severe lactic acidosis elevated to 31, requiring the placement of dialysis catheter and initiation of dialysis today.? ?While receiving dialysis,? patient?s? laboratory slowly improving.? ?At approximately 1930,? patients? rhythm changing,? patient became more Prakash to 50s and QRS noted to be significantly more wide.? Labs and EKG ordered.? While attempting to obtain EKG,? patient became pulseless,? PEA cardiac arrest initiated.? ACLS guidelines followed,? please see code sheet for all treatment/? medications. ? Wide complex tachycardia was noticed, VTach, during 1st ROSC, patient shocked and given? amiodarone.? But quickly? became pulseless again. ?ROSC was achieved about 3x,? but? unable to sustain despite multiple pressors and full support.? Family including patient mother Ling Wilde and patient son Odilon Wilde present in the ICU during cardiac arrest. After approx 30 min of CPR,? family okay with stopping life-saving measures. CPR stopped.? Time of was called at 2007 On my assessment, the patient had absent peripheral pulses.? Pupils fixed and dilated.? Absent heart sounds/ Cardiac activity in echo,? and no spontaneous breathing.? Family notified at bedside. Not a medical exam candidate.? Organ donation was notified by nursing.? Attending Dr Verduzco notified? ?Labs obtained during code blue,? resulted post [place] .? [place] [address] and BNP 64842,? patient was unable to be anticoagulated due to underlying thrombocytopenia Additional Data Attending physician: NESHA Gallegos Was code activated?: Yes (Code blue ) Autopsy requested?: No computer forensics examiner notified?: No Organ bank notified?: Yes Advance directives: Yes Hospice patient?: No
[2025-04-01 20:50] LABS: B Type Natriuretic Peptide 13886 pg/mL (<100)
[2025-04-01 20:52] LABS: Anion Gap 42 (12-20); Blood Urea Nitrogen 9 mg/dL (9-16); Calcium 14.6 mg/dL (8.4-10.2); Carbon Dioxide 16 mmol/L (22-29); Chloride 93 mmol/L (96-108); Creatinine Clr Calc Pharmacy 41.9; Estimated Glomerular Filt Rate 33; Magnesium 2.7 mg/dL (1.6-2.6); Potassium 7.4 mmol/L (3.3-5.1); Sodium 144 mmol/L (135-145)
[2025-04-01 20:53] LABS: Troponin-I High Sensitivity 22768.1 ng/L (<3.5-35.0)
[2025-04-01 21:55] LABS: Reflex Lactate? Lactic Acid Added
[2025-04-02 22:59] LABS: HCV Log PCR 3.93 Log IU/mL (NOT DETECTED); HepC Viral Load 8480 IU/mL (NOT DETECTED)
[2025-04-08 13:13] LABS: Cryoglobulin, Qual Negative (Negative)
[2025-04-08 22:54] LABS: Fungitell 1,3 beta glucan Positive
== END 2025-04-01 21:55 | disposition expired | DRG 720 ==
LOC: HO.ED 14:53 → HO.EDOVER 19:32 → HO.ICU 19:35
PROVIDERS: Internal Medicine Critical Care Medicine; Internal Medicine Geriatric Medicine; Nurse Practitioner Family; Physician Assistant Medical; Registered Nurse Community Health; Admitting Provider Physician Assistant Medical; Emergency Provider Emergency Medicine; Visit Provider Physician Assistant Medical
DX: A41.9 Sepsis, unspecified organism (principal); K72.00 Acute and subacute hepatic failure without coma; J96.01 Acute respiratory failure with hypoxia; N17.0 Acute kidney failure with tubular necrosis; R65.21 Severe sepsis with septic shock; J18.9 Pneumonia, unspecified organism; G93.41 Metabolic encephalopathy; D69.59 Other secondary thrombocytopenia; K65.2 Spontaneous bacterial peritonitis; E88.09 Other disorders of plasma-protein metabolism, not elsewhere classified; D50.8 Other iron deficiency anemias; B19.20 Unspecified viral hepatitis C without hepatic coma; N10 Acute pyelonephritis; B96.83 Acinetobacter baumannii as the cause of diseases classified elsewhere; E83.42 Hypomagnesemia; I46.9 Cardiac arrest, cause unspecified; F10.239 Alcohol dependence with withdrawal, unspecified; E87.6 Hypokalemia; E16.2 Hypoglycemia, unspecified
CPT/HCPCS: 36415; 36600; 71045; 74018; 74177; 80048; 80053; 81001; 82042; 82150; 82248; 82271; 82565; 82595; 82803; 82945; 82947; 83605; 83615; 83690; 83735; 83880; 83986; 84100; 84157; 84443; 84484; 85007; 85025; 85027; 85384; 85610; 85730; 86160; 86704; 86850; 86900; 86901; 87040; 87070; 87073; 87077; 87086; 87116; 87186; 87205; 87206; 87389; 87449; 87522; 88112; 88305; 89051; 90999; 93005; 94002; 94003; 94799; 99285; J0132; J0168; J0282; J0613; J0696; J1171; J1450; J1720; J1808; J1939; J2003; J2185; J2250; J2270; J2405; J2470; J2543; J2560; J2598; J2704; J3373; J3411; J3475; J3480; J7120; J7168; P9017; P9047; P9073; Q9967

== ENCOUNTER → 2025-03-30 11:34 | Outpatient (BNV) | payer MEDICAID, SELFPAY | PROVIDERS: Admitting Provider Student in an Organized Health Care Education/Training Program; Emergency Provider Emergency Medicine; PCP Internal Medicine Geriatric Medicine; Visit Provider Radiology Diagnostic Radiology | DX: K44.9 Diaphragmatic hernia without obstruction or gangrene (principal); J98.11 Atelectasis; K76.0 Fatty (change of) liver, not elsewhere classified; R10.9 Unspecified abdominal pain | CPT/HCPCS: 74018; 74177 ==

== ENCOUNTER 2025-03-30 19:25 | Outpatient (BNV) | payer MEDICAID, SELFPAY | END 2025-03-31 03:34 | PROVIDERS: Admitting Provider Physician Assistant Medical; Emergency Provider Emergency Medicine; Visit Provider Internal Medicine Cardiovascular Disease | DX: R00.0 Tachycardia, unspecified (principal) | CPT/HCPCS: 93010 ==

== ENCOUNTER 2025-03-30 19:25 | Outpatient (BNV) | payer MEDICAID, SELFPAY | END 2025-03-31 03:00 | PROVIDERS: Admitting Provider Physician Assistant Medical; Emergency Provider Emergency Medicine; Visit Provider Specialist | DX: J90 Pleural effusion, not elsewhere classified (principal); R91.8 Other nonspecific abnormal finding of lung field | CPT/HCPCS: 71045 ==

== ENCOUNTER → 2025-03-30 19:25 | Outpatient (BNV) | payer MEDICAID, SELFPAY | PROVIDERS: Admitting Provider Physician Assistant Medical; Emergency Provider Emergency Medicine; Visit Provider Nurse Practitioner Family | DX: N17.9 Acute kidney failure, unspecified (principal); E87.20 Acidosis, unspecified | CPT/HCPCS: 99222 ==

== ENCOUNTER → 2025-03-30 19:25 | Outpatient (BNV) | payer MEDICAID, SELFPAY | PROVIDERS: Admitting Provider Physician Assistant Medical; Emergency Provider Emergency Medicine; Visit Provider Physician Assistant Medical | DX: A41.9 Sepsis, unspecified organism (principal); R65.21 Severe sepsis with septic shock; G93.40 Encephalopathy, unspecified; N17.9 Acute kidney failure, unspecified; K72.01 Acute and subacute hepatic failure with coma; E87.21 Acute metabolic acidosis | CPT/HCPCS: 31500; 36556; 51703; 99238; 99291 ==